=== PATIENT | male | born 1935 | race Caucasian/White ===

== ENCOUNTER 2016-12-09 14:13 | Inpatient (IN) | payer OTHER ==
[~2016-12-09] VITALS: Ht 167.6 cm; Wt 85.0 kg
[2016-12-09] MEDS ORDERED: SODIUM CHLORIDE 0.9% 1000ML 1,000 ML IV SCH ×2 (14:43→16:13)
--- NOTE | 2016-12-09 14:57 | EMERGENCY ROOM VISIT NOTE ---
History Report prepared by Aldo: Kylie Echols Under the Supervision of: Dr. Rasheed Fernandez M.D. First contact with patient: 14:33 Chief Complaint: NEURO SYMPTOMS Stated Complaint: ARM/LEG RT SIDE NUMBNESS History of Present Illness The patient is a 81 year old male who presents to the Emergency Room with complaints of improved right sided numbness and weakness starting about 7-8 hours ago. He was having breakfast when he had an onset of his symptoms. The patient states that he had some difficulty with his speech at the time which has now resolved. He currently denies any pain. He was referred to the Emergency Room by his PCP. He denies headache, chest pain, shortness of breath, or any other complaints. He has an increased urinary output which is being treated by his PCP. He denies any history of stroke. He does not take any blood thinners. He has not received a blood transfusion in the past few months. Source of History: patient Onset: about 7 hours ago Position: other (right sided) Symptom Intensity: No pain Quality: numbness, other (weakness) Timing: other (improved) Associated Symptoms: No SOB, No chest pain, No headache Review of Systems See HPI for pertinent positives & negatives. A total of 10 systems reviewed and were otherwise negative. Past Medical & Surgical Medical Problems: (1) TIA (transient ischemic attack) Surgical Problems: (1) History of cardiac cath Family History Patient reports no known family medical history. Social History Marital Status: Occupation Status: retired Current/Historical Medications Scheduled Amlodipine Besylate (Norvasc), 5 MG PO DAILY Sennosides-Docusate Sodium (Stool Softener), 1 TAB PO PRN Miscellaneous Medications Diclofenac Sodium (Topical) (Voltaren 1% Top Gel), 1 APPLN TOP Tamsulosin Hcl (Flomax), 0.4 MG PO Allergies Coded Allergies: Sulfa Antibiotics (Verified Allergy, Severe, EDEMA, 12/09/16) Physical Exam Vital Signs Date Time Temp Pulse Resp B/P Pulse Ox O2 Delivery O2 Flow Rate FiO2 12/09/16 16:27 78 20 185/102 94 Room Air 12/09/16 14:59 75 12/09/16 14:59 95 Room Air 12/09/16 14:17 36.7 86 20 184/88 96 Room Air Physical Exam GENERAL: Patient is in no acute distress. HEENT: No acute trauma, normocephalic atraumatic, mucous membranes moist, no nasal congestion, no scleral icterus. NECK: No stridor, no adenopathy, no meningismus, trachea is midline. LUNGS: Clear to auscultation bilaterally, no wheeze, no rhonchi, breath sounds equal. HEART: 3/6 systolic murmur with a regular rate and rhythm. ABDOMEN: Soft, nontender, bowel sounds positive, no hernias, no peritonitis. EXTREMITIES: No cyanosis or edema, full range of motion of all the joints without pain or difficulty, no signs for acute trauma. NEUROLOGIC: Slight right facial droop with speaking but not with actual testing , There may be a slight speech slur noted. There is drift to the right arm and right leg. No cerebellar dysfunction. SKIN: No rash, no jaundice, no diaphoresis. Medical Decision & Procedures ER Provider Diagnostic Interpretation: CT results as stated below per my review and radiologist interpretation: HEAD CT NONCONTRAST CT DOSE: 720.95 mGycm HISTORY: Mental status change Stroke TECHNIQUE: Multiaxial CT images of the head were performed without the use of intravenous contrast. Comparison: None. Findings: The paranasal sinuses and mastoid air cells are clear. The calvarium and skull base are intact. The ventricles and sulci are within normal limits. There is no mass, hematoma, midline shift, or acute infarct. Impression: No acute intracranial abnormality. Electronically signed by: Pravin Buck M.D. 12/09/2016 3:26 PM Dictated Date/Time: 12/09/2016 3:25 PM Laboratory Results 12/09/16 15:05 Red Blood Count 4.78, Mean Corpuscular Volume 88.5, Mean Corpuscular Hemoglobin 31.2, Mean Corpuscular Hemoglobin Concent 35.2, Mean Platelet Volume 10.0, Neutrophils (%) (Auto) 69.0, Lymphocytes (%) (Auto) 18.9, Monocytes (%) (Auto) 7.8, Eosinophils (%) (Auto) 3.8, Basophils (%) (Auto) 0.3, Neutrophils # (Auto) 6.63, Lymphocytes # (Auto) 1.81, Monocytes # (Auto) 0.75, Eosinophils # (Auto) 0.36, Basophils # (Auto) 0.03 12/09/16 15:05 Test 12/09/16 15:01 12/09/16 15:02 12/09/16 15:05 12/09/16 16:00 Bedside Prothrombin Time INR 0.9 (0.9-1.1) Bedside Glucose 122 mg/dl (70-99) White Blood Count 9.60 K/uL (4.8-10.8) Red Blood Count 4.78 M/uL (4.7-6.1) Hemoglobin 14.9 g/dL (14.0-18.0) Hematocrit 42.3 % (42-52) Mean Corpuscular Volume 88.5 fL (80-100) Mean Corpuscular Hemoglobin 31.2 pg (25-34) Mean Corpuscular Hemoglobin Concent 35.2 g/dl (32-36) Platelet Count 195 K/uL (130-400) Mean Platelet Volume 10.0 fL (7.4-10.4) Neutrophils (%) (Auto) 69.0 % Lymphocytes (%) (Auto) 18.9 % Monocytes (%) (Auto) 7.8 % Eosinophils (%) (Auto) 3.8 % Basophils (%) (Auto) 0.3 % Neutrophils # (Auto) 6.63 K/uL (1.4-6.5) Lymphocytes # (Auto) 1.81 K/uL (1.2-3.4) Monocytes # (Auto) 0.75 K/uL (0.11-0.59) Eosinophils # (Auto) 0.36 K/uL (0-0.5) Basophils # (Auto) 0.03 K/uL (0-0.2) RDW Standard Deviation 45.6 fL (36.4-46.3) RDW Coefficient of Variation 14.0 % (11.5-14.5) Immature Granulocyte % (Auto) 0.2 % Immature Granulocyte # (Auto) 0.02 K/uL (0.00-0.02) Prothrombin Time 10.4 SECONDS (9.0-12.0) Prothromb Time International Ratio 1.0 (0.9-1.1) Activated Partial Thromboplast Time 30.2 SECONDS (21.0-31.0) Partial Thromboplastin Ratio 1.2 Anion Gap 10.0 mmol/L (3-11) Est Creatinine Clear Calc Drug Dose 46.0 ml/min Estimated GFR () 58.9 Estimated GFR (Non- 50.8 BUN/Creatinine Ratio 12.5 (10-20) Calcium Level 8.8 mg/dl (8.5-10.1) Magnesium Level 2.2 mg/dl (1.8-2.4) Total Bilirubin 0.6 mg/dl (0.2-1) Direct Bilirubin 0.1 mg/dl (0-0.2) Aspartate Amino Transf (AST/SGOT) 19 U/L (15-37) Alanine Aminotransferase (ALT/SGPT) 33 U/L (12-78) Alkaline Phosphatase 88 U/L (45-117) Total Creatine Kinase 139 U/L (39-308) Creatine Kinase MB 2.2 ng/ml (0.5-3.6) Creatine Kinase MB Ratio 1.6 (0-3.0) Troponin I < 0.015 ng/ml (0-0.045) Total Protein 6.6 gm/dl (6.4-8.2) Albumin 3.3 gm/dl (3.4-5.0) Thyroid Stimulating Hormone (TSH) 1.050 uIu/ml (0.300-4.500) Urine Opiates Screen NEG (NEG) Urine Methadone, Qualitative NEG (NEG) Urine Barbiturates NEG (NEG) Urine Phencyclidine (PCP) Level NEG (NEG) Ur Amphetamine/Methamphetamine NEG (NEG) MDMA (Ecstasy) Screen NEG (NEG) Urine Benzodiazepines Screen NEG (NEG) Urine Cocaine Metabolite NEG (NEG) Urine Marijuana (THC) NEG (NEG) Laboratory results reviewed by me. Medications Administered Medications (Trade) Dose Ordered Sig/Georgina Route Start Time Stop Time Status Last Admin Dose Admin Sodium Chloride (Nss 1000ml) 1,000 ml @ 50 mls/hr Q20H IV 12/09/16 14:43 12/09/16 17:04 DC 12/09/16 15:12 50 MLS/HR Acetaminophen (Tylenol Tab) 650 mg Q4H PRN PO 12/09/16 16:15 01/08/17 16:14 12/09/16 17:15 650 MG Hydralazine HCl (HydrALAZINE INJ) 10 mg Q6H PRN IV. 12/09/16 16:15 01/08/17 16:14 12/09/16 17:14 10 MG ECG Indication: weakness, other (numbness) Rate (beats per minute): 73 Rhythm: sinus rhythm Findings: PAC, no acute ischemic change, other (LVH is present) ED Course 1433: The patient was evaluated in room C12B. A complete history and physical exam was performed. 1443: Sodium Chloride 1000 ml @ 50 mls/hr IV 1544: Upon reexamination the patient is resting comfortably. I discussed results and treatment plan with the patient. He verbalizes agreement and understanding. I discussed the patient's case with Dr. Mirza, from [facility]. The patient will be evaluated for further management. Medical Decision Differential diagnosis includes but is not limited to intracranial bleed, stroke , anemia, electrolyte imbalance, infection, dysrhythmia. There is no leukocytosis or concerning anemia. No significant electrolyte abnormality, kidney failure, hepatitis. The patient appears to be in a euthyroid state. There is no coagulopathy. EKG shows a sinus rhythm, no acute ischemia. Urine tox is negative. Brain CT shows no acute bleed or mass effect. On exam, the patient did have findings of stroke affecting his right side. The patient received IV saline, he is not a candidate for TPA as he has had symptoms now for over 7 hours. He is out of the window for TPA. I discussed this with him. The patient is aware that I feel he has had a stroke. Further testing and hospital care is required. I spoke to case management. The on-call hospitalist was consulted. Consults Time Called: 154 Consulting Physician: Dr. Mirza, from [facility] Returned Call: [phone] I discussed the patient's case with Dr. Mirza, from [facility]. Impression Primary Impression: Stroke Scribe Attestation The scribe's documentation has been prepared under my direction and personally reviewed by me in its entirety. I confirm that the note above accurately reflects all work, treatment, procedures, and medical decision making performed by me. Departure Information Dispostion Being Evaluated By Hospitalist Referrals Major Chen M.D. (PCP) Patient Instructions My [facility] Stroke History Time Last Known Well 7 am Stroke t-PA Criteria Reviewed Does NOT meet criteria for t-PA Reason t-PA Not Given Treatment not indicated
[2016-12-09 15:14] LABS: BASO % 0.3 %; BASO ABS # 0.03 K/uL (0-0.2); COMPLETE YES; EOS % 3.8 %; HEMATOCRIT 42.3 % (42-52); IG% 0.2 %; LYMPH % 18.9 %; LYMPH ABS # 1.81 K/uL (1.2-3.4); MEAN CELL VOLUME 88.5 fL (80-100); MEAN CORPUSCULAR HEMOGLOBIN 31.2 pg (25-34); MEAN CORPUSCULAR HGB CONC 35.2 g/dl (32-36); MONO % 7.8 %; PLATELET COUNT 195 K/uL (130-400); RED BLOOD COUNT 4.78 M/uL (4.7-6.1)
[2016-12-09 15:23] LABS: PARTIAL THROMBOPLASTIN RATIO 1.2; PROTHROMBIN TIME (PATIENT) 10.4 SECONDS (9.0-12.0)
--- NOTE | 2016-12-09 15:27 | DIAGNOSTIC IMAGING REPORT ---
HEAD CT NONCONTRAST CT DOSE: 720.95 mGycm HISTORY: Mental status change Stroke TECHNIQUE: Multiaxial CT images of the head were performed without the use of intravenous contrast. Comparison: None. Findings: The paranasal sinuses and mastoid air cells are clear. The calvarium and skull base are intact. The ventricles and sulci are within normal limits. There is no mass, hematoma, midline shift, or acute infarct. Impression: No acute intracranial abnormality. Electronically signed by: Pravin Buck M.D. 12/09/2016 3:26 PM Dictated Date/Time: 12/09/2016 3:25 PM
[2016-12-09 15:36] LABS: ALT/SGPT 33 U/L (12-78); BLOOD UREA NITROGEN 16 mg/dl (7-18); BUN/CREATININE RATIO 12.5 (10-20); CALCIUM 8.8 mg/dl (8.5-10.1); CARBON DIOXIDE 25 mmol/L (21-32); CHLORIDE 103 mmol/L (98-107); GLUCOSE 134 mg/dl (70-99); MAGNESIUM 2.2 mg/dl (1.8-2.4); SODIUM 138 mmol/L (136-145)
[2016-12-09] MEDS ORDERED: AMLO5TAB2 PO (15:43)
[2016-12-09] MEDS ORDERED: TAMS0.4C38 PO (15:43)
[2016-12-09] MEDS ORDERED: DICL1GEL12 TOP (15:43)
[2016-12-09] MEDS ORDERED: SENNTAB23 PO (15:43)
[2016-12-09 15:47] LABS: ALKALINE PHOSPHATASE 88 U/L (45-117); AST/SGOT 19 U/L (15-37); CKMB/CK RATIO 1.6 (0-3.0)
[2016-12-09] MEDS ORDERED: HydrALAZINE HCL 20 MG/ML VIAL IV. PRN (16:15)
[2016-12-09] MEDS ORDERED: POLYETHYLENE (MIRALAX) 17 GM PACK PO PRN (16:15)
[2016-12-09] MEDS ORDERED: NITROGLYCERIN 0.4 MG SL PER TAB CHARGE SL PRN (16:15)
[2016-12-09] MEDS ORDERED: ACETAMINOPHEN 325 MG TAB PO PRN (16:15)
[2016-12-09] MEDS ORDERED: PHARMACIST DISCHARGE MED REC CONSULT PRN (16:15)
[2016-12-09] MEDS ORDERED: MAGNESIUM HYDROXIDE SUSP 30 ML UDC PO PRN (16:15)
[2016-12-09] MEDS ORDERED: ALUMINUM/MAGNESIUM/SIMETH (MAALOX MAX) 30 ML UDC PO PRN (16:15)
[2016-12-09] MEDS ORDERED: ONDANSETRON INJ 2 MG/ML 2 ML VIAL IV PRN (16:15)
[2016-12-09] MEDS ORDERED: DICLOFENAC SOD 1% GEL 100 GM TUBE EXT PRN (16:15)
[2016-12-09 16:32] LABS: BENZODIAZEPINE, URINE NEG (NEG); COCAINE,URINE NEG (NEG); PHENCYCLIDINE, URINE NEG (NEG)
--- NOTE | 2016-12-09 16:52 | History and Physical ---
History & Physical Date & Time of Service: Dec 09, 2016 at 16:29 Chief Complaint: Arm/Leg Rt Side Numbness Primary Care Physician: aMjor Chen M.D. History of Present Illness Source: patient, family, clinic records, hospital records Patient is a pleasant 81 y/o male, with PMHx of CAD s/p heart cath in 2002, HTN , BPH, and h/o peptic ulcer disease, who presented to the ED because of right- sided stoke-like symptoms. According to the patient, when he woke up this AM, he noticed right arm/leg were numb and weakness. He admits to difficulty w/ speech. Daughter present states the patient called her this AM when symptoms occurred. She could not tell if patient was slurring speech or if it was because he was very upset/tearful. When she picked him up, she noticed that he was no himself. He had to physically lift his right leg to put his shoe on. Patient states symptoms have mostly resolved at this time. Per daughter, patient has been dealing w/ right hand 1st and 2nd digit numbness/tingling for sometime. He has been following w/ the chiropractor and it is felt he has a pinched nerve. Additionally, patient is following with [facility] because of his bilateral knee pain. The left knee needs replaced, but the right knee is suspected to have a meniscal tear. Patient was scheduled to have an MRI of the right knee on 12/10. Patient admits to increased right calf discomfort over the last 1 week. He denies any lower extremity edema or discoloration. He denies history of TIA/CVA, DVT/PE. Additionally, patient admits to worsening SOB. Per daughter, patient has been SOB since pulmonary infection in August. Patient/daughter admit to heart cath in 2002 but does not know why it was completed. Patient denies any arrhythmia, but daughter states she believes he was told in the past he had an arrhythmia. Patient's recently passed in September due to the results of a stoke 11 years ago. 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 He is very anxious/upset with current situation due to 's history. Patient denies any fever, chills, sweats, lightheadedness, dizziness, vision changes, CP, palpitations, edema, wheezing, cough, abdominal pain, nausea , vomiting, diarrhea, urinary symptoms, melena, muscle/joint pain, depression, active bleeding, or new skin discoloration/changes. Past Medical/Surgical History Medical hx: CAD HTN BPH h/o peptic ulcer disease Surgical Problems: Heart cath in 2002 Cataract surgery Family History Mother- DM Brother- heart disease Social History Smoking Status: Former Smoker Marital Status: Occupational Status: retired Multi-Drug Resistant Organisms History of MDRO: No Allergies Coded Allergies: Sulfa Antibiotics (Verified Allergy, Severe, EDEMA, 12/09/16) Home Medications Scheduled Amlodipine Besylate (Norvasc), 5 MG PO DAILY Sennosides-Docusate Sodium (Stool Softener), 1 TAB PO PRN Miscellaneous Medications Diclofenac Sodium (Topical) (Voltaren 1% Top Gel), 1 APPLN TOP Tamsulosin Hcl (Flomax), 0.4 MG PO Physical Exam Vital Signs Date Time Temp Pulse Resp B/P Pulse Ox O2 Delivery O2 Flow Rate FiO2 12/09/16 16:27 78 20 185/102 94 Room Air 12/09/16 14:59 75 12/09/16 14:59 95 Room Air 12/09/16 14:17 36.7 86 20 184/88 96 Room Air General Appearance: no apparent distress Head: normocephalic, atraumatic Eyes: normal inspection, PERRL ENT: hearing grossly normal Neck: supple Respiratory/Chest: lungs clear, no respiratory distress, no accessory muscle use Cardiovascular: regular rate, rhythm, normal peripheral pulses, + systolic murmur Abdomen/GI: normal bowel sounds, soft, + distended Back: normal inspection Extremities/Musculoskelatal: no pedal edema, + pertinent finding (decreased naprapath strength of right hand ) Neurologic/Psych: alert, oriented x 3, + pertinent finding (tearful/anxious) Skin: normal color, warm/dry, no rash Diagnostics Laboratory Results Results Past 24 Hours Test 12/09/16 15:01 12/09/16 15:05 12/09/16 16:00 Range/Units Bedside Prothrombin Time INR 0.9 0.9-1.1 White Blood Count 9.60 4.8-10.8 K/uL Red Blood Count 4.78 4.7-6.1 M/uL Hemoglobin 14.9 14.0-18.0 g/dL Hematocrit 42.3 42-52 % Mean Corpuscular Volume 88.5 80-100 fL Mean Corpuscular Hemoglobin 31.2 25-34 pg Mean Corpuscular Hemoglobin Concent 35.2 32-36 g/dl Platelet Count 195 130-400 K/uL Mean Platelet Volume 10.0 7.4-10.4 fL Neutrophils (%) (Auto) 69.0 % Lymphocytes (%) (Auto) 18.9 % Monocytes (%) (Auto) 7.8 % Eosinophils (%) (Auto) 3.8 % Basophils (%) (Auto) 0.3 % Neutrophils # (Auto) 6.63 1.4-6.5 K/uL Lymphocytes # (Auto) 1.81 1.2-3.4 K/uL Monocytes # (Auto) 0.75 0.11-0.59 K/uL Eosinophils # (Auto) 0.36 0-0.5 K/uL Basophils # (Auto) 0.03 0-0.2 K/uL RDW Standard Deviation 45.6 36.4-46.3 fL RDW Coefficient of Variation 14.0 11.5-14.5 % Immature Granulocyte % (Auto) 0.2 % Immature Granulocyte # (Auto) 0.02 0.00-0.02 K/uL Prothrombin Time 10.4 9.0-12.0 SECONDS Prothromb Time International Ratio 1.0 0.9-1.1 Activated Partial Thromboplast Time 30.2 21.0-31.0 SECONDS Partial Thromboplastin Ratio 1.2 Sodium Level 138 136-145 mmol/L Potassium Level 4.0 3.5-5.1 mmol/L Chloride Level 103 98-107 mmol/L Carbon Dioxide Level 25 21-32 mmol/L Anion Gap 10.0 3-11 mmol/L Blood Urea Nitrogen 16 7-18 mg/dl Creatinine 1.30 0.60-1.40 mg/dl Est Creatinine Clear Calc Drug Dose 46.0 ml/min Estimated GFR () 58.9 Estimated GFR (Non- 50.8 BUN/Creatinine Ratio 12.5 10-20 Random Glucose 134 70-99 mg/dl Calcium Level 8.8 8.5-10.1 mg/dl Magnesium Level 2.2 1.8-2.4 mg/dl Total Bilirubin 0.6 0.2-1 mg/dl Direct Bilirubin 0.1 0-0.2 mg/dl Aspartate Amino Transf (AST/SGOT) 19 15-37 U/L Alanine Aminotransferase (ALT/SGPT) 33 12-78 U/L Alkaline Phosphatase 88 45-117 U/L Total Creatine Kinase 139 39-308 U/L Creatine Kinase MB 2.2 0.5-3.6 ng/ml Creatine Kinase MB Ratio 1.6 0-3.0 Troponin I < 0.015 0-0.045 ng/ml Total Protein 6.6 6.4-8.2 gm/dl Albumin 3.3 3.4-5.0 gm/dl Thyroid Stimulating Hormone (TSH) 1.050 0.300-4.500 uIu/ml Diagnostic Radiology HEAD CT NONCONTRAST CT DOSE: 720.95 mGycm HISTORY: Mental status change Stroke TECHNIQUE: Multiaxial CT images of the head were performed without the use of intravenous contrast. Comparison: None. Findings: The paranasal sinuses and mastoid air cells are clear. The calvarium and skull base are intact. The ventricles and sulci are within normal limits. There is no mass, hematoma, midline shift, or acute infarct. Impression: No acute intracranial abnormality. Electronically signed by: Pravin Buck M.D. 12/09/2016 3:26 PM Dictated Date/Time: 12/09/2016 3:25 PM The status of this report is Signed. Draft = Not yet reviewed or approved by Radiologist. Signed = Reviewed and approved by Radiologist. EKG JOHN SHAHLA ID:[id number] 09-DEC-2016 14:54:53 [facility] Sinus rhythm with Premature supraventricular complexes Left axis deviation Minimal voltage criteria for LVH, may be normal variant Abnormal ECG No previous ECGs available Confirmed by CRYSTAL GAN ([id number]) on 12/09/2016 4:41:10 PM 25mm/s 10mm/mV 150Hz 8.0 SP2 12SL 241 HD ODALIS: 12 Referred by: ED Confirmed By: CRYSTAL Jerez. rate 73 BPM WY interval 168 ms QRS duration 100 ms QT/QTc 392/431 ms P-R-T axes 38 -30 8 1935 (81 yr) Male Room: Loc:15 Assistant Chief Engineer:GERARD Hu ind: Impression Assessment and Plan 81 y/o male, with PMHx of CAD s/p heart cath in 2002, HTN, BPH, and h/o peptic ulcer disease, who presented to the ED because of right-sided stoke-like symptoms: Right-sided stroke-like symptoms, TIA vs CVA: - Admit to tele observation for cardiac monitoring - Trend cardiac enzymes- initial trop negative - IV NSS @ 75 ml/hr x1 bag - Head CT- unremarkable - MRI of brain, carotid US, ECHO - Check left lower extremity Doppler- complaining of calf pain and SOB - -Stroke protocol: --PT/OT and speech evaluation --Aspiration/fall precautions --Dysphagia screen, advance diet as tolerated --Routine neuro checks --Elevate HOB - Start Plavix 75 mg daily and Atorvastatin 40 daily -- According to patient, cannot take ASA due to PUD and eye reaction (sees lights) - Check lipid panel and ha1c - Urine drug screen ordered in ED- pending - Consult neurology, appreciate recommendations CAD s/p heart cath in 2002: - Pt is poor historian on cardiac history- followed w/ Dr. Ross - Denies any medications HTN: - Continue Norvasc 5 mg daily - Hydralazine PRN BPH: Continue Tamsulosin 0.4 mg daily GI Prophylaxis: Maalox PRN, IV Zofran PRN, Colace and/or Milk of Mag PRN DVT prophylaxis: Heparin 5000 units SQ q12 hrs, HORACE and SCDs Code Status: LEVEL V, DNR Dispo: From home, lives alone PA Physician Supervision Note: I interviewed and examined the patient. Discussed with Daija Sanon PAC and agree with findings and plan as documented in the note. Any exceptions or clarifications are listed here: None Pt presents outside of time window for tPa for stroke like symptoms of right arm and leg weakness, speech changes and mild facial droop. recently from complications of a stroke 11 years ago. Pt is obviously shaken and tearful in the ER vitals show hypertension car is regular lungs are clear minor but reproducable naprapath weakness CT head is negative Admit for stroke, MRI, plavix as aspirin intolerance, statin, permissive htn, PT /OT, DVT prevention Documented By: Saúl Mirza Level of Care Telemetry Resuscitation Status DO NOT RESUSCITATE VTE Prophylaxis VTE Risk Assessment Done? Y/N: Yes Risk Level: Moderate Given or contraindicated: Unfractionated heparin SQ, T.E.D. Stockings, SCD's
--- NOTE | 2016-12-09 18:02 | DIAGNOSTIC IMAGING REPORT ---
RIGHT LOWER EXTREMITY VENOUS DOPPLER CLINICAL HISTORY: Right calf pain. COMPARISON STUDY: No previous studies for comparison. TECHNIQUE: Sonography of the deep venous system of the right lower extremity was performed. Compression and augmentation were evaluated. FINDINGS: The right common femoral, superficial femoral and popliteal veins were compressible. Augmentation was normal. Flow was shown within the deep calf vessels. IMPRESSION: No evidence of deep venous thrombus within the right lower extremity. Electronically signed by: Gustavo Amaya M.D. 12/09/2016 6:01 PM Dictated Date/Time: 12/09/2016 6:01 PM
--- NOTE | 2016-12-09 18:19 | DIAGNOSTIC IMAGING REPORT ---
CAROTID ARTERY ULTRASOUND CLINICAL HISTORY: Stroke COMPARISON STUDY: None. TECHNIQUE: Real-time, grayscale, and color Doppler sonography of the carotid and vertebral arteries was performed. Images were viewed in the transverse and longitudinal planes. FINDINGS: There is mild atherosclerotic plaque. Velocity measurements are listed below. COMMON CAROTID PEAK SYSTOLIC VELOCITY (CM/S): RIGHT 113 LEFT 123 ICA PEAK SYSTOLIC VELOCITY (CM/S): RIGHT 85 LEFT 71 The systolic ratios between the internal to common carotid arteries were normal. Antegrade flow is seen in the vertebral arteries. The external carotid arteries are patent. Blood pressure in the right arm measured 136/70. Blood pressure in the left arm measured 141/68. IMPRESSION: No evidence of a hemodynamically significant stenosis. Electronically signed by: Gustavo Amaya M.D. 12/09/2016 6:18 PM Dictated Date/Time: 12/09/2016 6:17 PM
[2016-12-09 18:20] VITALS: BP 175/92; PULSE 80; TEMP 36.6; O2SAT 96; BMI 30.4
[2016-12-09] MEDS ORDERED: IV FLUIDS COMPLETED PRN (18:30)
[2016-12-09 19:34] VITALS: BP 165/83; PULSE 92; TEMP 36.6; O2SAT 95
[2016-12-09] MEDS: HEPARIN SOD 5000 UNIT/0.5 ML CARP SQ SCH (19:48)
[2016-12-09] MEDS ORDERED: LORAZEPAM 0.5 MG TAB PO STA (20:25)
[2016-12-09] MEDS ORDERED: NURSING VERBAL MED ORDER ONE (20:30)
[2016-12-09] MEDS ORDERED: LORAZEPAM 2 MG/ML 1 ML VIAL ONE (20:38)
[2016-12-09] MEDS ORDERED: LORAZEPAM 2 MG/ML 1 ML VIAL IV ONE (20:45)
[2016-12-09] MEDS ORDERED: LORAZEPAM INJ 0.5 MG in SYRINGE 0.75 ML IV ONE (20:45)
[2016-12-09] MEDS ORDERED: GADAVIST IV PRN (22:00)
--- NOTE | 2016-12-09 22:09 | DIAGNOSTIC IMAGING REPORT ---
MRI OF THE BRAIN WITHOUT AND WITH IV CONTRAST CLINICAL HISTORY: Right sided numbness. Stroke. COMPARISON STUDY: Head CT performed earlier today. TECHNIQUE: Utilizing a 1.5 Tisha magnet and dedicated coil, multiplanar, multiecho imaging of the brain was performed pre and postcontrast administration. IV administration of 9 mL of Gadavist contrast was uneventful. FINDINGS: This exam is mildly compromised by motion artifact. There are no areas of restricted diffusion. No acute intracranial hemorrhage, midline shift or mass effect is present. Moderate atrophy is noted. Mild white matter T2 hyperintensity suggest small vessel disease. No intracranial mass or pathologic enhancement is present. Ventricular system is unremarkable for age. Calvarial signal is maintained. IMPRESSION: 1. No acute intracranial findings. 2. No intracranial mass or pathologic enhancement. 3. Moderate atrophy and mild small vessel disease. Electronically signed by: Gustavo Amaya M.D. 12/09/2016 10:08 PM Dictated Date/Time: 12/09/2016 10:03 PM
[2016-12-09 23:34] VITALS: BP 144/78; PULSE 81; TEMP 36.7; O2SAT 94
[2016-12-10] VITALS (8 sets, daily range): BP systolic 122–153; BP diastolic 69–90; PULSE 77–86; TEMP 36.5–36.9; O2SAT 93–98; Ht 167.6 cm; Wt 85.0 kg
[2016-12-10 07:06] LABS: BASO % 0.4 %; BASO ABS # 0.04 K/uL (0-0.2); COMPLETE YES; EOS % 4.8 %; HEMATOCRIT 43.1 % (42-52); IG% 0.2 %; LYMPH % 14.7 %; LYMPH ABS # 1.32 K/uL (1.2-3.4); MEAN CELL VOLUME 88.1 fL (80-100); MEAN CORPUSCULAR HEMOGLOBIN 31.3 pg (25-34); MEAN CORPUSCULAR HGB CONC 35.5 g/dl (32-36); MEAN PLATELET VOLUME 9.8 fL (7.4-10.4); MONO % 9.6 %; NEUT % 70.3 %; PLATELET COUNT 200 K/uL (130-400); RED BLOOD COUNT 4.89 M/uL (4.7-6.1)
[2016-12-10] MEDS: CLOPIDOGREL BISULFATE 75 MG TAB PO SCH (07:37)
[2016-12-10] MEDS: ATORVASTATIN 40 MG TAB PO SCH (07:37)
[2016-12-10] MEDS: AMLODIPINE BESYLATE 5 MG TAB PO SCH (07:37)
[2016-12-10] MEDS: DOCUSATE SODIUM/SENNA 50/8.6MG TAB PO SCH (07:38)
[2016-12-10] MEDS: TAMSULOSIN HCL 0.4 MG CAP PO SCH (07:38)
[2016-12-10] MEDS: HEPARIN SOD 5000 UNIT/0.5 ML CARP SQ SCH ×2 (07:39→20:15)
[2016-12-10 07:40] LABS: BLOOD UREA NITROGEN 13 mg/dl (7-18); BUN/CREATININE RATIO 10.7 (10-20); CALCIUM 8.8 mg/dl (8.5-10.1); CARBON DIOXIDE 25 mmol/L (21-32); CHLORIDE 106 mmol/L (98-107); GLUCOSE 142 mg/dl (70-99); POTASSIUM 3.9 mmol/L (3.5-5.1); SODIUM 139 mmol/L (136-145)
[2016-12-10 07:45] LABS: CHOLESTEROL 157 mg/dl (0-200); CHOLESTEROL/HDL RATIO 3.7; HDL CHOLESTEROL 42 mg/dl; LDL CHOLESTEROL CALCULATED 90 mg/dl; TRIGLYCERIDES 124 mg/dl (0-150); VERY LOW DENSITY LIPOPROT CALC 25 mg/dl
[2016-12-10 08:52] LABS: ESTIMATED AVERAGE GLUCOSE 154 mg/dl; HA1C FLAG Normal (Normal)
--- NOTE | 2016-12-10 08:58 | Neurology Consultation ---
Neurology Consultation Date of Consultation: Dec 10, 2016. Attending Physician: Cayden Ruffin D.O. Primary Care Physician: Major Chen M.D. Reason for Consultation: Stroke like symptoms History of Present Illness Source: patient, family, hospital records This is an 81-year-old male who presents for acute onset right-sided weakness. He reports that it started acutely while eating breakfast yesterday morning. Mostly involved his right upper extremity. He reports that he had whole hard time holding onto his spoon. Also had numbness but in part of the hand but he is not sure that it was the entire arm. He reports occasionally getting pain down his right lateral proximal arm in the deltoid area. He denies any significant neck pain. He reports that he has had numbness in the right hand previously. He denies any wrist or elbow pain. He reports that the acute weakness seems to be resolved this morning. In addition he had has chronic right lower extremity pain and weakness area daughter reports that this is been getting worse over the last week. She reports that he has been evaluated by orthopedics and they're suspicious for possibly a meniscal tear in the right knee and were planning for an MRI of the knee today. 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 Again this been going on for several weeks to months. He does report occasional shooting pain down the right leg. When he had his acutely worsening arm weakness yesterday morning , he also reported some blurry vision with flickering lights in it. He denies any headaches at the time. He was anxious about possibly having a stroke because his who recently tried in September, she had a stroke with right hemiplegia, was wheelchair bound, and he had to care for her for a decade. Patient denies any significant headaches or history of migraine headaches. Daughter patient to report that he's had some on and off finger numbness on the right hand in the second and third finger. When this event happened yesterday the patient also thought that his speech was a little bit slurred or is getting mixed up over his words. There was no clear aphasia. While the ER thought that maybe had a little bit of a right facial droop, the daughter did not notice any facial droop. There was no loss of vision. MRI of the brain done at around 8 PM last night report and images were reviewed by myself. MRI of the brain appears normal for age. There is no signs of acute or chronic strokes. Ultrasound of the carotids was also unremarkable Because of right lower extremity pain the patient also received an ultrasound of the lower extremity and there was no DVT Labs: Creatinine end to be 1.2 Total cholesterol 157, LDL 90, HDL 42, triglycerides 124 Hemoglobin A1c is pending Echocardiogram is pending On review of systems the daughter also reports he's been short of breath and frequent coughing ever since he was treated for bronchitis in August. Past Medical/Surgical History Medical Problems: (1) Stroke Status: Acute CAD status post cardiac cath, hypertension, BPH, peptic ulcer disease Cataract surgery, surgery for peptic ulcer Family History Diabetes, CAD, cancer Social History Patient is recently ( in September) He is independent in his activities of daily living Remote tobacco use. No alcohol or illegal drug use Marital Status: Occupation Status: retired Allergies Coded Allergies: Sulfa Antibiotics (Verified Allergy, Severe, EDEMA, 12/09/16) Current Inpatient Medications Current Inpatient Medications Medications (Trade) Dose Ordered Sig/Georgina Route Start Time Stop Time Status Last Admin Dose Admin Heparin Sodium (Porcine) (Heparin Sq 5000 Unit/0.5ml) 5,000 unit Q12 SQ 12/09/16 21:00 01/08/17 20:59 12/10/16 07:39 5,000 UNIT Acetaminophen (Tylenol Tab) 650 mg Q4H PRN PO 12/09/16 16:15 01/08/17 16:14 12/09/16 17:15 650 MG Al Hydrox/Mg Hydrox/Simethicone (Maalox Max Susp) 15 ml Q4H PRN PO 12/09/16 16:15 01/08/17 16:14 Magnesium Hydroxide (Milk Of Magnesia Susp) 30 ml Q12H PRN PO 12/09/16 16:15 01/08/17 16:14 Ondansetron HCl (Zofran Inj) 4 mg Q6H PRN IV 12/09/16 16:15 01/08/17 16:14 Nitroglycerin (Nitrostat Tab) 0.4 mg UD PRN SL 12/09/16 16:15 01/08/17 16:14 Polyethylene (Miralax Powder Packet) 17 gm DAILY PRN PO 12/09/16 16:15 01/08/17 16:14 Atorvastatin Calcium (Lipitor Tab) 40 mg QAM PO 12/10/16 09:00 01/09/17 08:59 12/10/16 07:37 40 MG Clopidogrel Bisulfate (plAVix TAB) 75 mg QAM PO 12/10/16 09:00 01/09/17 08:59 12/10/16 07:37 75 MG Miscellaneous Information (Pharmacist Discharge Med Rec Consult) 1 ea UD PRN N/A 12/09/16 16:15 01/08/17 16:14 Hydralazine HCl (HydrALAZINE INJ) 10 mg Q6H PRN IV. 12/09/16 16:15 01/08/17 16:14 12/09/16 17:14 10 MG Amlodipine Besylate (Norvasc Tab) 5 mg DAILY PO 12/10/16 09:00 01/09/17 08:59 12/10/16 07:37 5 MG Diclofenac Sodium (Voltaren 1% Top Gel) 1 appln QID PRN EXT 12/09/16 16:15 01/08/17 16:14 Senna/Docusate Sodium (Senokot S Tab) 1 tab DAILY PO 12/10/16 09:00 01/09/17 08:59 12/10/16 07:38 1 TAB Tamsulosin HCl (Flomax Cap) 0.4 mg DAILY PO 12/10/16 09:00 01/09/17 08:59 12/10/16 07:38 0.4 MG Miscellaneous (Iv Fluids Completed) 1 ea PRN PRN N/A 12/09/16 18:30 12/09/17 18:29 Gadobutrol (Gadavist) 9 mmol UD PRN IV 12/09/16 22:00 12/13/16 21:59 Review of Systems Complete review of systems otherwise negative except for the above noted in history of present illness Allergic / Immunologic: + environmental allergies Physical Exam Vital Signs (Past 24 Hrs): Date Time Temp Pulse Resp B/P Pulse Ox O2 Delivery O2 Flow Rate FiO2 12/10/16 08:00 95 Room Air 12/10/16 07:52 36.6 77 18 147/81 95 Room Air 12/10/16 04:41 36.7 79 18 122/69 98 Room Air 12/10/16 04:00 Room Air 12/09/16 23:59 Room Air 12/09/16 23:34 36.7 81 18 144/78 94 Room Air 12/09/16 20:00 Room Air 12/09/16 19:34 36.6 92 20 165/83 95 Room Air 12/09/16 18:20 36.6 80 16 175/92 96 Room Air 12/09/16 17:19 76 20 143/95 95 Room Air 12/09/16 16:27 78 20 185/102 94 Room Air 12/09/16 14:59 75 12/09/16 14:59 95 Room Air 12/09/16 14:17 36.7 86 20 184/88 96 Room Air Gen.: Patient is alert and oriented in no acute distress, sitting in chair Heart: Regular rate and rhythm, + systolic murmur Extremities: No gross deformities or rashes noted Neurological examination: Mental status: Patient is alert and oriented to person place and time. Able to give his own history. Attention concentration normal for the situation. Speech is fluent without any dysarthria or aphasia noted Cranial nerves: Funduscopic examination was difficult to visualize. Visual guerra intact to counting. Pupils equally round and reactive to light. Extraocular muscles intact without nystagmus. No facial asymmetry noted. Facial sensation intact. Tongue midline. Good palatal elevation. Good shoulder shrug bilaterally. Hearing grossly intact voice (hearing aids in place). Strength: 5/5 both proximal and distal in left upper and lower extremity. Patient had give way weakness secondary to shoulder pain with proximal right upper extremity testing. In addition the patient had right shoulder pain to passive movement of the shoulder. Right bicep was 5/5. Finger extension 5/5. Right hand leadite worker 4/5. Right hip flexion 2/5, right knee extension 2/5, foot dorsiflexion 4/5, and right foot plantar flexion 5/5. Sensation: Grossly intact to light touch in all extremities with the exception of decreased sensation in the right anterior thigh and right median distribution of the palm. Deep tendon reflexes: +1 in bilateral, biceps and patellar with the exception of +2 in the right patellar. Toes are downgoing to plantar stimulation bilaterally Coordination: Patient has good finger to nose without dysmetria Station within the chair is normal. Laboratory Results Past 24 Hours: 12/10/16 06:50 Red Blood Count 4.89, Mean Corpuscular Volume 88.1, Mean Corpuscular Hemoglobin 31.3, Mean Corpuscular Hemoglobin Concent 35.5, Mean Platelet Volume 9.8, Neutrophils (%) (Auto) 70.3, Lymphocytes (%) (Auto) 14.7, Monocytes (%) (Auto) 9.6, Eosinophils (%) (Auto) 4.8, Basophils (%) (Auto) 0.4, Neutrophils # (Auto) 6.33, Lymphocytes # (Auto) 1.32, Monocytes # (Auto) 0.86, Eosinophils # (Auto) 0.43, Basophils # (Auto) 0.04 12/10/16 06:50 Test 12/09/16 15:01 12/09/16 15:02 12/09/16 15:05 12/09/16 16:00 Bedside Prothrombin Time INR 0.9 (0.9-1.1) Bedside Glucose 122 mg/dl (70-99) Prothrombin Time 10.4 SECONDS (9.0-12.0) Prothromb Time International Ratio 1.0 (0.9-1.1) Activated Partial Thromboplast Time 30.2 SECONDS (21.0-31.0) Partial Thromboplastin Ratio 1.2 Magnesium Level 2.2 mg/dl (1.8-2.4) Total Bilirubin 0.6 mg/dl (0.2-1) Direct Bilirubin 0.1 mg/dl (0-0.2) Aspartate Amino Transf (AST/SGOT) 19 U/L (15-37) Alanine Aminotransferase (ALT/SGPT) 33 U/L (12-78) Alkaline Phosphatase 88 U/L (45-117) Total Creatine Kinase 139 U/L (39-308) Total Protein 6.6 gm/dl (6.4-8.2) Albumin 3.3 gm/dl (3.4-5.0) Thyroid Stimulating Hormone (TSH) 1.050 uIu/ml (0.300-4.500) Urine Opiates Screen NEG (NEG) Urine Methadone, Qualitative NEG (NEG) Urine Barbiturates NEG (NEG) Urine Phencyclidine (PCP) Level NEG (NEG) Ur Amphetamine/Methamphetamine NEG (NEG) MDMA (Ecstasy) Screen NEG (NEG) Urine Benzodiazepines Screen NEG (NEG) Urine Cocaine Metabolite NEG (NEG) Urine Marijuana (THC) NEG (NEG) Test 12/10/16 06:50 White Blood Count 9.00 K/uL (4.8-10.8) Red Blood Count 4.89 M/uL (4.7-6.1) Hemoglobin 15.3 g/dL (14.0-18.0) Hematocrit 43.1 % (42-52) Mean Corpuscular Volume 88.1 fL (80-100) Mean Corpuscular Hemoglobin 31.3 pg (25-34) Mean Corpuscular Hemoglobin Concent 35.5 g/dl (32-36) Platelet Count 200 K/uL (130-400) Mean Platelet Volume 9.8 fL (7.4-10.4) Neutrophils (%) (Auto) 70.3 % Lymphocytes (%) (Auto) 14.7 % Monocytes (%) (Auto) 9.6 % Eosinophils (%) (Auto) 4.8 % Basophils (%) (Auto) 0.4 % Neutrophils # (Auto) 6.33 K/uL (1.4-6.5) Lymphocytes # (Auto) 1.32 K/uL (1.2-3.4) Monocytes # (Auto) 0.86 K/uL (0.11-0.59) Eosinophils # (Auto) 0.43 K/uL (0-0.5) Basophils # (Auto) 0.04 K/uL (0-0.2) RDW Standard Deviation 46.0 fL (36.4-46.3) RDW Coefficient of Variation 14.2 % (11.5-14.5) Immature Granulocyte % (Auto) 0.2 % Immature Granulocyte # (Auto) 0.02 K/uL (0.00-0.02) Anion Gap 8.0 mmol/L (3-11) Est Creatinine Clear Calc Drug Dose 48.6 ml/min Estimated GFR () 64.9 Estimated GFR (Non- 56.0 BUN/Creatinine Ratio 10.7 (10-20) Estimated Average Glucose 154 mg/dl Hemoglobin A1c 7.0 % (4.5-5.6) Calcium Level 8.8 mg/dl (8.5-10.1) Creatine Kinase MB 1.3 ng/ml (0.5-3.6) Creatine Kinase MB Ratio (0-3.0) Troponin I < 0.015 ng/ml (0-0.045) Triglycerides Level 124 mg/dl (0-150) Cholesterol Level 157 mg/dl (0-200) HDL Cholesterol 42 mg/dl LDL Cholesterol, Calculated 90 mg/dl VLDL Cholesterol, Calculated 25 mg/dl Cholesterol/HDL Ratio 3.7 Imaging As noted above in history of present illness Impression This is an 81-year-old right-handed male with acute onset (possibly acute on chronic) weakness of right upper extremity weakness, along with more chronic right lower extremity weakness that has been worsening over the last week. Patient does have some significant right shoulder pain with passive motion, likely indicating some component of intrinsic shoulder dysfunction contributing to his weakness. Patient also has decreased right hand leadite worker and median distribution numbness that may be more carpal tunnel syndrome. May have a peripheral median neuropathy versus cervical radiculopathy. Right lower extremity weakness appears to be more chronic and likely secondary to a upper to mid lumbar radiculopathy. Not sure that there was ever a clear right facial droop. Slurred speech is nonspecific and could of occurred in the setting of anxiety. Overall it is not clear to me that the patient has had a stroke or TIA, it seems that he may have had more acute on chronic worsening of right arm weakness with chronic right lower extremity weakness. Plan Recommend MRI cervical and lumbar spine combo for further evaluation. Patient will need Ativan premedication for claustrophobia. Daughter was requesting MRI of the right knee as the patient was supposed to get this done today per orthopedics to look for meniscal tear, but I'll leave this up to the hospitalist group. Agree with evaluating patient's stroke risk factors. Neurological recommendations for stroke risk factor modifications: BP goals 130/80-110/70 Total cholesterol goal 100-200, and LDL goal less than 100 Hemoglobin A1c goal less than 7 Encourage regular cardiovascular exercise at least 30 minutes 3 times per week Follow-up PT/OT and speech recommendations for discharge planning If there is a clear structural lesion in the patient's cervical spine that would explain his worsening right upper extremity weakness, the patient may not need Plavix. If MRI of the C & L-spine do not show a reason for his weakness, could consider repeating an MRI of the brain tomorrow with an MRA of the head and neck. If there is any questions or concerns, feel free to call/page me
[2016-12-10] MEDS ORDERED: PERFLUTREN LIPID MICROSPHERE (DEFINITY) IV ONE (09:22)
[2016-12-10] MEDS ORDERED: LORAZEPAM INJ 0.5 MG in SYRINGE 0.25 ML IV ONE (12:00)
--- NOTE | 2016-12-10 12:39 | Medical Student: [facility] ---
Med Student History & Physical Date & Time of Service: Dec 10, 2016 at 11:25 Chief Complaint: TIA Primary Care Physician: Major Chen M.D. History of Present Illness Source: patient, family (daughter ), hospital records CC: right sided weakness & numbness HPI: The patient is a 81-year-old right-handed male with PMH significant for BPH , CAD, cardiac catheterization in 2002, HTN, and peptic ulcer disease who presented to the ER on 12/09/16 at 1457 with right sided upper and lower extremity weakness and numbness as well as slurred speech. It started 7-8 hours before presentation to the ER during breakfast. He noticed he had decreased hand cigarette seller when trying to use his utensil. He also noticed he had decreased leg strength when trying to put on his shoe this morning. He had to use his arms to raise his legs. Additionally, he did have some blurry vision when trying to read and he noted a sensation of a "light flickering." He does have a history of right 1st and 2nd digit numbness and tingling. Additionally, he has a 1-2 week history of right knee pain and right leg weakness. A past note described the pain as right calf discomfort of 1 week duration. He was actually scheduled for a right knee MRI today for a possible meniscal tear. He also has a history of low back pain which radiates down his right leg. In the ER, he was noted to have a right facial droop and a drift to his right arm and right leg. He was having worsening SOB, but this has been persistent since a hospitalization in August for bronchitis. He denied chest pain or COOMBS. His vitals were all normal except he was hypertensive at 184/88. His labs were normal as well except for hyperglycemia at 134. He was given 1000 mL NaCl @ 50 mL/hr, acetaminophen 650 mg, and hydralazine [address] showed no evidence of acute intracranial abnormality. Brain MRI also showed no evidence of acute intracranial abnormality. EKG showed normal sinus rhythm, some PACs and LVH, but no ischemic process. Carotid US showed no hemodynamically significant stenosis. A right lower extremity US was ordered due to his history of right lower calf tenderness, but was negative for a DVT. The patient was very tearful during the entire visit. 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 PMH: 1) BPH 2) CAD 3)cardiac catheterization in 2002 4) HTN, 5) peptic ulcer disease Surgical History: 1) heart catheterization in 2002 2) cataract surgery 3) surgery for peptic ulcer Meds: 1) Amlodipine 5 mg daily 2) Sennosides-Docusate 1 tab per day 3) Diclofenac-sodium topical 4) Tamsulosin 0.4 mg daily Allergies: Sulfa drugs Social History: His this past September d/t complications from a stroke 11 years ago. 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 He lives alone in [place], [place]. He does not consume alcohol. He is a former smoker and quit about 30 years ago. He did smoke for 20 years and smoked about 1 pack/day. FH: His family history is significant for his mother having diabetes, brother having heart disease, and sister having cancer. There is no history of stroke in his family. Past Medical/Surgical History Medical Problems: (1) Stroke Status: Acute Surgical Problems: (1) History of cardiac cath Status: Resolved Social History Smoking Status: Never Smoker Marital Status: Occupational Status: retired Allergies Coded Allergies: Sulfa Antibiotics (Verified Allergy, Severe, EDEMA, 12/09/16) Medications Amlodipine Besylate (Norvasc), 5 MG PO DAILY Diclofenac Sodium (Topical) (Voltaren 1% Top Gel), 1 APPLN TOP Sennosides-Docusate Sodium (Stool Softener), 1 TAB PO PRN Tamsulosin Hcl (Flomax), 0.4 MG PO Tramadol Hcl (Ultram), 50 MG PO Q4H Review of Systems Constitutional: No fever Respiratory: + shortness of breath Cardiovascular: No chest pain Abdomen: No constipation, No diarrhea Neurologic: + numbness/tingling, + weakness Physical Exam Vital Signs (24 Hours) Date Time Temp Pulse Resp B/P Pulse Ox O2 Delivery O2 Flow Rate FiO2 12/10/16 08:00 95 Room Air 12/10/16 07:52 36.6 77 18 147/81 95 Room Air 12/10/16 04:41 36.7 79 18 122/69 98 Room Air 12/10/16 04:00 Room Air 12/09/16 23:59 Room Air 12/09/16 23:34 36.7 81 18 144/78 94 Room Air 12/09/16 20:00 Room Air 12/09/16 19:34 36.6 92 20 165/83 95 Room Air 12/09/16 18:20 36.6 80 16 175/92 96 Room Air 12/09/16 17:19 76 20 143/95 95 Room Air 12/09/16 16:27 78 20 185/102 94 Room Air 12/09/16 14:59 75 12/09/16 14:59 95 Room Air 12/09/16 14:17 36.7 86 20 184/88 96 Room Air Vitals: temp 36.6, HR 77, RR 18, BP 147/81, O2 sat 95 Neurological: The patient is a pleasant 81-year-old right-handed male who is in no apparent distress. Spontaneous speech is of normal rate and tone, with slight dysarthria. He is oriented to person, place and time and has an appropriate fund of knowledge. His affect is flat and he was tearful during the entire exam. The patient has normal tone. Strength was 4/5 in right hand intrinsics, wrist flexors, wrist extensors, biceps, triceps, and deltoid. Strength was 5/5 in left hand intrinsics, wrist flexors, wrist extensors, biceps, triceps, and deltoid. Strength was 5/5 in trapezius bilaterally, symmetrically. Strength was 4/5 in right hip flexors, knee flexors, knee extensors, ankle extensors, and ankle flexors. Strength was 5/5 in left hip flexors, knee flexors, knee extensors, ankle extensors, and ankle flexors. Light touch sensation was intact throughout except for diminished sensation in the right median nerve dermatomal distribution and right L3 nerve dermatomal distribution. Proprioception was intact in lower and upper extremities bilaterally. Vibratory sense was intact in lower and upper extremities bilaterally. Reflexes were 1+ in biceps, triceps, brachioradialis, and achilles bilaterally. Reflexes were 1 + in right patellar, but 0 in left patellar. Toes were downgoing on babinski reflex testing. There was no dysmetria on [id number] testing. No tremor was appreciated. There was no pronator drift. Cranial Nerve Exam: CN I: no tested CN II: pupils equal, round, and reactive to light. Peripheral guerra intact. CN III: pupils equal, round, and reactive to light. Extraocular movements intact. No nystagmus. CN IV: Extraocular movements intact. No nystagmus CN V: symmetrical sensation to light touch over the 3 distributions of CN V. [place] palpated and symmetrical. CN : Extraocular movements intact. CN VII: symmetrical wrinkling of forehead, eye closure, smile, and cheek expansion. CN VIII: not tested CN IX: uvula midline CN X: uvula midline CN XI: trapezius muscle moves symmetrically, 5/5 bilaterally CN XII: tongue protrudes midline Cardio: RRR, normal S1 and S2, 3/6 systolic murmur heard best at the left upper sternal border with no radiation to the carotids. Distal pulses in upper and lower extremities were 2+ bilaterally. MSK: decreased right shoulder passive and active range of motion Diagnostics Laboratory Results Results Past 24 Hours Test 12/09/16 15:01 12/09/16 15:02 12/09/16 15:05 12/09/16 16:00 Range/Units Bedside Prothrombin Time INR 0.9 0.9-1.1 Bedside Glucose 122 70-99 mg/dl White Blood Count 9.60 4.8-10.8 K/uL Red Blood Count 4.78 4.7-6.1 M/uL Hemoglobin 14.9 14.0-18.0 g/dL Hematocrit 42.3 42-52 % Mean Corpuscular Volume 88.5 80-100 fL Mean Corpuscular Hemoglobin 31.2 25-34 pg Mean Corpuscular Hemoglobin Concent 35.2 32-36 g/dl Platelet Count 195 130-400 K/uL Mean Platelet Volume 10.0 7.4-10.4 fL Neutrophils (%) (Auto) 69.0 % Lymphocytes (%) (Auto) 18.9 % Monocytes (%) (Auto) 7.8 % Eosinophils (%) (Auto) 3.8 % Basophils (%) (Auto) 0.3 % Neutrophils # (Auto) 6.63 1.4-6.5 K/uL Lymphocytes # (Auto) 1.81 1.2-3.4 K/uL Monocytes # (Auto) 0.75 0.11-0.59 K/uL Eosinophils # (Auto) 0.36 0-0.5 K/uL Basophils # (Auto) 0.03 0-0.2 K/uL RDW Standard Deviation 45.6 36.4-46.3 fL RDW Coefficient of Variation 14.0 11.5-14.5 % Immature Granulocyte % (Auto) 0.2 % Immature Granulocyte # (Auto) 0.02 0.00-0.02 K/uL Prothrombin Time 10.4 9.0-12.0 SECONDS Prothromb Time International Ratio 1.0 0.9-1.1 Activated Partial Thromboplast Time 30.2 21.0-31.0 SECONDS Partial Thromboplastin Ratio 1.2 Sodium Level 138 136-145 mmol/L Potassium Level 4.0 3.5-5.1 mmol/L Chloride Level 103 98-107 mmol/L Carbon Dioxide Level 25 21-32 mmol/L Anion Gap 10.0 3-11 mmol/L Blood Urea Nitrogen 16 7-18 mg/dl Creatinine 1.30 0.60-1.40 mg/dl Est Creatinine Clear Calc Drug Dose 46.0 ml/min Estimated GFR () 58.9 Estimated GFR (Non- 50.8 BUN/Creatinine Ratio 12.5 10-20 Random Glucose 134 70-99 mg/dl Calcium Level 8.8 8.5-10.1 mg/dl Magnesium Level 2.2 1.8-2.4 mg/dl Total Bilirubin 0.6 0.2-1 mg/dl Direct Bilirubin 0.1 0-0.2 mg/dl Aspartate Amino Transf (AST/SGOT) 19 15-37 U/L Alanine Aminotransferase (ALT/SGPT) 33 12-78 U/L Alkaline Phosphatase 88 45-117 U/L Total Creatine Kinase 139 39-308 U/L Creatine Kinase MB 2.2 0.5-3.6 ng/ml Creatine Kinase MB Ratio 1.6 0-3.0 Troponin I < 0.015 0-0.045 ng/ml Total Protein 6.6 6.4-8.2 gm/dl Albumin 3.3 3.4-5.0 gm/dl Thyroid Stimulating Hormone (TSH) 1.050 0.300-4.500 uIu/ml Urine Opiates Screen NEG NEG Urine Methadone, Qualitative NEG NEG Urine Barbiturates NEG NEG Urine Phencyclidine (PCP) Level NEG NEG Ur Amphetamine/Methamphetamine NEG NEG MDMA (Ecstasy) Screen NEG NEG Urine Benzodiazepines Screen NEG NEG Urine Cocaine Metabolite NEG NEG Urine Marijuana (THC) NEG NEG Test 12/09/16 22:58 4/6/17 06:50 Range/Units Creatine Kinase MB 2.0 1.3 0.5-3.6 ng/ml Creatine Kinase MB Ratio 0-3.0 Troponin I < 0.015 < 0.015 0-0.045 ng/ml White Blood Count 9.00 4.8-10.8 K/uL Red Blood Count 4.89 4.7-6.1 M/uL Hemoglobin 15.3 14.0-18.0 g/dL Hematocrit 43.1 42-52 % Mean Corpuscular Volume 88.1 80-100 fL Mean Corpuscular Hemoglobin 31.3 25-34 pg Mean Corpuscular Hemoglobin Concent 35.5 32-36 g/dl Platelet Count 200 130-400 K/uL Mean Platelet Volume 9.8 7.4-10.4 fL Neutrophils (%) (Auto) 70.3 % Lymphocytes (%) (Auto) 14.7 % Monocytes (%) (Auto) 9.6 % Eosinophils (%) (Auto) 4.8 % Basophils (%) (Auto) 0.4 % Neutrophils # (Auto) 6.33 1.4-6.5 K/uL Lymphocytes # (Auto) 1.32 1.2-3.4 K/uL Monocytes # (Auto) 0.86 0.11-0.59 K/uL Eosinophils # (Auto) 0.43 0-0.5 K/uL Basophils # (Auto) 0.04 0-0.2 K/uL RDW Standard Deviation 46.0 36.4-46.3 fL RDW Coefficient of Variation 14.2 11.5-14.5 % Immature Granulocyte % (Auto) 0.2 % Immature Granulocyte # (Auto) 0.02 0.00-0.02 K/uL Sodium Level 139 136-145 mmol/L Potassium Level 3.9 3.5-5.1 mmol/L Chloride Level 106 98-107 mmol/L Carbon Dioxide Level 25 21-32 mmol/L Anion Gap 8.0 3-11 mmol/L Blood Urea Nitrogen 13 7-18 mg/dl Creatinine 1.20 0.60-1.40 mg/dl Est Creatinine Clear Calc Drug Dose 48.6 ml/min Estimated GFR () 64.9 Estimated GFR (Non- 56.0 BUN/Creatinine Ratio 10.7 10-20 Random Glucose 142 70-99 mg/dl Estimated Average Glucose 154 mg/dl Hemoglobin A1c 7.0 4.5-5.6 % Calcium Level 8.8 8.5-10.1 mg/dl Triglycerides Level 124 0-150 mg/dl Cholesterol Level 157 0-200 mg/dl HDL Cholesterol 42 mg/dl LDL Cholesterol, Calculated 90 mg/dl VLDL Cholesterol, Calculated 25 mg/dl Cholesterol/HDL Ratio 3.[address] without contrast HEAD CT NONCONTRAST CT DOSE: 720.95 mGycm HISTORY: Mental status change Stroke TECHNIQUE: Multiaxial CT images of the head were performed without the use of intravenous contrast. Comparison: None. Findings: The paranasal sinuses and mastoid air cells are clear. The calvarium and skull base are intact. The ventricles and sulci are within normal limits. There is no mass, hematoma, midline shift, or acute infarct. Impression: No acute intracranial abnormality. Brain MRI MRI OF THE BRAIN WITHOUT AND WITH IV CONTRAST CLINICAL HISTORY: Right sided numbness. Stroke. COMPARISON STUDY: Head CT performed earlier today. TECHNIQUE: Utilizing a 1.5 Tisha magnet and dedicated coil, multiplanar, multiecho imaging of the brain was performed pre and postcontrast administration. IV administration of 9 mL of Gadavist contrast was uneventful. FINDINGS: This exam is mildly compromised by motion artifact. There are no areas of restricted diffusion. No acute intracranial hemorrhage, midline shift or mass effect is present. Moderate atrophy is noted. Mild white matter T2 hyperintensity suggest small vessel disease. No intracranial mass or pathologic enhancement is present. Ventricular system is unremarkable for age. Calvarial signal is maintained. IMPRESSION: 1. No acute intracranial findings. 2. No intracranial mass or pathologic enhancement. 3. Moderate atrophy and mild small vessel disease. Right Lower Extremity Doppler US RIGHT LOWER EXTREMITY VENOUS DOPPLER CLINICAL HISTORY: Right calf pain. COMPARISON STUDY: No previous studies for comparison. TECHNIQUE: Sonography of the deep venous system of the right lower extremity was performed. Compression and augmentation were evaluated. FINDINGS: The right common femoral, superficial femoral and popliteal veins were compressible. Augmentation was normal. Flow was shown within the deep calf vessels. IMPRESSION: No evidence of deep venous thrombus within the right lower extremity. Carotid Artery US CAROTID ARTERY ULTRASOUND CLINICAL HISTORY: Stroke COMPARISON STUDY: None. TECHNIQUE: Real-time, grayscale, and color Doppler sonography of the carotid and vertebral arteries was performed. Images were viewed in the transverse and longitudinal planes. FINDINGS: There is mild atherosclerotic plaque. Velocity measurements are listed below. COMMON CAROTID PEAK SYSTOLIC VELOCITY (CM/S): RIGHT 113 LEFT 123 ICA PEAK SYSTOLIC VELOCITY (CM/S): RIGHT 85 LEFT 71 The systolic ratios between the internal to common carotid arteries were normal. Antegrade flow is seen in the vertebral arteries. The external carotid arteries are patent. Blood pressure in the right arm measured 136/70. Blood pressure in the left arm measured 141/68. IMPRESSION: No evidence of a hemodynamically significant stenosis. Impression Assessment and Plan Assessment: The patient is a 81-year-old right-handed male with a PMH significant for BPH, CAD, cardiac catheterization 2002, HTN, and peptic ulcer disease who presented to the ER yesterday (12/09/16) at 1457 with right sided upper and lower extremity weakness and numbness as well as slurred speech. Physical exam findings, history of upper and lower extremity weakness and numbness, and review of the Brain MRI indicate the etiology of this numbness/ weakness may be multifactorial, but is most likely not a TIA or stroke. The patient's presentation is most likely associated with mid lumbar radiculopathy, peripheral median neuropathy versus cervical radiculopathy, and possibly carpal tunnel syndrome. Differential Diagnosis: -I suspect one component of this presentation is mid lumbar radiculopathy. The patient has a history of right knee pain as well as right leg pain/weakness. His daughter described his weakness as difficulty putting on his shoes because he can't raise his right leg and when he needs to move his right leg, he uses his hands to help. It was suspected that he may have a torn meniscus in his right knee by an orthopedic surgeon. The patient also describes a history of low back pain and radiation of pain down his right leg. 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 She was a hemiplegic as a result of a stroke 11 years ago. He helped her with all ADLs which included lifting her in and out of her wheelchair every day. This constant lifting may have lead to degenerative changes in this patients lumbar spine, which eventually lead to nerve compression. Strength in his right lower extremities was 4/5 compared to his left lower extremity which was 5/5. Additionally, he had decreased sensation in the L3 nerve dermatome on his right side. Decreased strength and sensation in his right lower extremity in conjunction with his history of low back pain, radiation of pain down his right leg, and right knee/right leg pain/ weakness indicate this patient most likely has a L3-L4 lumbar radiculopathy. -I suspect another component of this presentation is cervical radiculopathy vs. peripheral medial nerve neuropathy vs carpal tunnel syndrome. On physical exam, the patient had decreased passive and active range of motion of his right shoulder and significant right shoulder pain. Additionally, he had decreased right sided hand cigarette seller and right upper extremity strength was 4/5 compared to left upper extremity strength which was 5/5. Additionally, he had decreased sensation of the median nerve distribution of his right arm, especially in the thenar eminence. The patient also has a history of right 1st and 2nd digit numbness and tingling. He has been seeing a chiropractor for this. Based on his presentation of acute right arm/hand weakness and signs of chronic shoulder degeneration, I believe this is an acute on chronic weakness of his right upper extremity. Cervical radiculopathy is more unlikely because the patient did not complain of current or past neck pain as well as headaches. Decreased shoulder flexion and abduction is most likely due to an intrinsic shoulder injury such as rotator cuff tendinopathy or impingement. Carpal tunnel syndrome is certainly plausible given his history of right 1st and 2nd digit numbness/ weakness as well as decreased thenar eminence sensation. -Another consideration is thoracic outlet syndrome. He could possibly have neurogenic thoracic outlet syndrome. He does have a right sided upper extremity sensory deficit in the median nerve distribution as well as diffuse right upper extremity weakness. Sensory abnormalities in the T1 distribution are common in thoracic outlet syndrome, which was not seen in this patient, however. He could have developed thoracic outlet syndrome from years of repetitive wear and tear of caring for his hemiplegic . Additionally, it is often the underlying cause of refracting upper limb conditions such as frozen shoulder or carpal tunnel syndrome so it should be considered if treatments for other more likely diagnoses fail. -Another consideration is transient ischemic attack vs. stroke The patient did present with acute right sided upper extremity weakness in which he suddenly had a difficult time gripping his utensil with his hand at breakfast yesterday. Additionally, he described an acute right sided leg weakness as well. It is unsure whether he truly had a right sided facial droop in the ER. It was recorded in the chart, but today on physical exam, he had no signs of right sided facial droop. Additionally, he described slurred speech yesterday, but his daughter does not recall significant slurring of speech. And if slurred speech was present, it may have been due to anxiety of the other presenting symptoms. Head CT and brain MRI were negative for an acute ischemic process. A small lacunar stroke is still plausible because sometimes they are not evident in early brain MRIs. He does have some cerebrovascular atherosclerotic risk factors including HTN and he does have a history of CAD. Although he does possess some risk factors and his presentation could be consistent with a stroke , it is unlikely given his chronic complaints of right sided weakness, back pain , and right 1st and 2nd digit numbness. Plan: -Order cervical and lumbar MRI with contrast to further evaluate for a spine pathology causing nerve compression. The patient is claustrophobic and will need Ativan for the scan. Add on a right knee MRI if possible per daughter's request. The patient was originally scheduled for a right knee MRI today to evaluate for a possible right knee meniscal injury. -if cervical and lumbar MRI do not show clear etiology for weakness, then we should consider a brain MRI and MRA of head and neck tomorrow to evaluate further for cerebrovascular cause -Evaluate and work-up stroke risk factor -Echo is still pending -EKG, brain MRI, brain CT, and carotid US already performed and reviewed -Lipid panel and HbgA1C already ordered and reviewed -continue Plavix 75 mg daily and Atorvastatin 40 mg daily until TIA/stroke is completely ruled out. If he has cervical and/or lumbar radiculopathy, this would explain his weakness/numbness and he would not need Plavix for stroke prevention. -For now, until TIA/Stroke is completely ruled out, continue recommendations for stroke risk factor modifications: -BP goals 130/80-110/70 -total cholesterol goal 100-200 -LDL goal <100 -hemoglobin A1C goal <7 Neurology attending addendum: Patient was seen and evaluated with medical student. Please see my separate neurology consult note for full evaluation and recommendations. -Eloina Das, DO Advanced Directives Existing Living Will: No Existing Power of Correctional Agency Director: No
--- NOTE | 2016-12-10 13:11 | Hospitalist Progress Note ---
Hospitalist Progress Note Date of Service Dec 10, 2016. (Regina Sevilla PA-C) Subjective Pt evaluation today including: conversation w/ patient, conversation w/ family , physical exam, chart review, lab review, review of studies, review of inpatient medication list Patient reports feeling well today. Does admit to still having some numbness and tingling in the right arm and right leg. He also admits to feeling slightly weak on the right side still. He is however reluctant to tell me this. He is very focused on being discharged today. He denies any new symptoms such as headache, changes in vision, chest pain or pressure or shortness of breath. No fever or chills. Additional Comments: 6 system review negative. Please see pertinent positives in the history of present illness section. (Regina Sevilla PA-C) Objective Vital Signs Date Time Temp Pulse Resp B/P Pulse Ox O2 Delivery O2 Flow Rate FiO2 12/10/16 12:07 36.5 86 20 153/90 94 Room Air 12/10/16 12:00 95 Room Air 12/10/16 08:00 95 Room Air 12/10/16 07:52 36.6 77 18 147/81 95 Room Air 12/10/16 04:41 36.7 79 18 122/69 98 Room Air 12/10/16 04:00 Room Air 12/09/16 23:59 Room Air 12/09/16 23:34 36.7 81 18 144/78 94 Room Air 12/09/16 20:00 Room Air 12/09/16 19:34 36.6 92 20 165/83 95 Room Air 12/09/16 18:20 36.6 80 16 175/92 96 Room Air 12/09/16 17:19 76 20 143/95 95 Room Air 12/09/16 16:27 78 20 185/102 94 Room Air 12/09/16 14:59 75 12/09/16 14:59 95 Room Air 12/09/16 14:17 36.7 86 20 184/88 96 Room Air (Regina Sevilla PA-C) Physical Exam General Appearance: no apparent distress ENT: + pertinent finding (no facial droop appreciated) Neck: no JVD Respiratory/Chest: + pertinent finding (few crackles noted at the bases bilaterally.) Cardiovascular: regular rate, rhythm, + systolic murmur Abdomen: normal bowel sounds, non tender, soft Extremities: + pertinent finding (weakness noted with flexion of the R shoulder. + empty can test. Slightly weaker obiee obia solution architect noted with the right upper extremity. No erythema or edema noted in the lower extremities bilaterally.) Neurologic/Psychiatric: + pertinent finding (findings with the right upper extremity as noted above. Weakness with flexion of the right hip. Dorsiflexion and plantar flexion of the feet equal bilaterally. Pain with any range of motion of the right knee. Sensation appears to be equal on both sides. ) Skin: warm/dry (Regina Sevilla, BERTA) Laboratory Results 12/10/16 06:50 Red Blood Count 4.89, Mean Corpuscular Volume 88.1, Mean Corpuscular Hemoglobin 31.3, Mean Corpuscular Hemoglobin Concent 35.5, Mean Platelet Volume 9.8, Neutrophils (%) (Auto) 70.3, Lymphocytes (%) (Auto) 14.7, Monocytes (%) (Auto) 9.6, Eosinophils (%) (Auto) 4.8, Basophils (%) (Auto) 0.4, Neutrophils # (Auto) 6.33, Lymphocytes # (Auto) 1.32, Monocytes # (Auto) 0.86, Eosinophils # (Auto) 0.43, Basophils # (Auto) 0.04 12/10/16 06:50 Test 12/09/16 15:01 12/09/16 15:02 12/09/16 15:05 12/09/16 16:00 Bedside Prothrombin Time INR 0.9 (0.9-1.1) Bedside Glucose 122 mg/dl (70-99) Prothrombin Time 10.4 SECONDS (9.0-12.0) Prothromb Time International Ratio 1.0 (0.9-1.1) Activated Partial Thromboplast Time 30.2 SECONDS (21.0-31.0) Partial Thromboplastin Ratio 1.2 Magnesium Level 2.2 mg/dl (1.8-2.4) Total Bilirubin 0.6 mg/dl (0.2-1) Direct Bilirubin 0.1 mg/dl (0-0.2) Aspartate Amino Transf (AST/SGOT) 19 U/L (15-37) Alanine Aminotransferase (ALT/SGPT) 33 U/L (12-78) Alkaline Phosphatase 88 U/L (45-117) Total Creatine Kinase 139 U/L (39-308) Total Protein 6.6 gm/dl (6.4-8.2) Albumin 3.3 gm/dl (3.4-5.0) Thyroid Stimulating Hormone (TSH) 1.050 uIu/ml (0.300-4.500) Urine Opiates Screen NEG (NEG) Urine Methadone, Qualitative NEG (NEG) Urine Barbiturates NEG (NEG) Urine Phencyclidine (PCP) Level NEG (NEG) Ur Amphetamine/Methamphetamine NEG (NEG) MDMA (Ecstasy) Screen NEG (NEG) Urine Benzodiazepines Screen NEG (NEG) Urine Cocaine Metabolite NEG (NEG) Urine Marijuana (THC) NEG (NEG) Test 12/10/16 06:50 White Blood Count 9.00 K/uL (4.8-10.8) Red Blood Count 4.89 M/uL (4.7-6.1) Hemoglobin 15.3 g/dL (14.0-18.0) Hematocrit 43.1 % (42-52) Mean Corpuscular Volume 88.1 fL (80-100) Mean Corpuscular Hemoglobin 31.3 pg (25-34) Mean Corpuscular Hemoglobin Concent 35.5 g/dl (32-36) Platelet Count 200 K/uL (130-400) Mean Platelet Volume 9.8 fL (7.4-10.4) Neutrophils (%) (Auto) 70.3 % Lymphocytes (%) (Auto) 14.7 % Monocytes (%) (Auto) 9.6 % Eosinophils (%) (Auto) 4.8 % Basophils (%) (Auto) 0.4 % Neutrophils # (Auto) 6.33 K/uL (1.4-6.5) Lymphocytes # (Auto) 1.32 K/uL (1.2-3.4) Monocytes # (Auto) 0.86 K/uL (0.11-0.59) Eosinophils # (Auto) 0.43 K/uL (0-0.5) Basophils # (Auto) 0.04 K/uL (0-0.2) RDW Standard Deviation 46.0 fL (36.4-46.3) RDW Coefficient of Variation 14.2 % (11.5-14.5) Immature Granulocyte % (Auto) 0.2 % Immature Granulocyte # (Auto) 0.02 K/uL (0.00-0.02) Anion Gap 8.0 mmol/L (3-11) Est Creatinine Clear Calc Drug Dose 48.6 ml/min Estimated GFR () 64.9 Estimated GFR (Non- 56.0 BUN/Creatinine Ratio 10.7 (10-20) Estimated Average Glucose 154 mg/dl Hemoglobin A1c 7.0 % (4.5-5.6) Calcium Level 8.8 mg/dl (8.5-10.1) Creatine Kinase MB 1.3 ng/ml (0.5-3.6) Creatine Kinase MB Ratio (0-3.0) Troponin I < 0.015 ng/ml (0-0.045) Triglycerides Level 124 mg/dl (0-150) Cholesterol Level 157 mg/dl (0-200) HDL Cholesterol 42 mg/dl LDL Cholesterol, Calculated 90 mg/dl VLDL Cholesterol, Calculated 25 mg/dl Cholesterol/HDL Ratio 3.7 Last 24 Hours Test 12/09/16 15:01 12/09/16 15:02 12/09/16 15:05 12/09/16 16:00 Bedside Prothrombin Time INR 0.9 Bedside Glucose 122 mg/dl White Blood Count 9.60 K/uL Red Blood Count 4.78 M/uL Hemoglobin 14.9 g/dL Hematocrit 42.3 % Mean Corpuscular Volume 88.5 fL Mean Corpuscular Hemoglobin 31.2 pg Mean Corpuscular Hemoglobin Concent 35.2 g/dl Platelet Count 195 K/uL Mean Platelet Volume 10.0 fL Neutrophils (%) (Auto) 69.0 % Lymphocytes (%) (Auto) 18.9 % Monocytes (%) (Auto) 7.8 % Eosinophils (%) (Auto) 3.8 % Basophils (%) (Auto) 0.3 % Neutrophils # (Auto) 6.63 K/uL Lymphocytes # (Auto) 1.81 K/uL Monocytes # (Auto) 0.75 K/uL Eosinophils # (Auto) 0.36 K/uL Basophils # (Auto) 0.03 K/uL RDW Standard Deviation 45.6 fL RDW Coefficient of Variation 14.0 % Immature Granulocyte % (Auto) 0.2 % Immature Granulocyte # (Auto) 0.02 K/uL Prothrombin Time 10.4 SECONDS Prothromb Time International Ratio 1.0 Activated Partial Thromboplast Time 30.2 SECONDS Partial Thromboplastin Ratio 1.2 Sodium Level 138 mmol/L Potassium Level 4.0 mmol/L Chloride Level 103 mmol/L Carbon Dioxide Level 25 mmol/L Anion Gap 10.0 mmol/L Blood Urea Nitrogen 16 mg/dl Creatinine 1.30 mg/dl Est Creatinine Clear Calc Drug Dose 46.0 ml/min Estimated GFR () 58.9 Estimated GFR (Non- 50.8 BUN/Creatinine Ratio 12.5 Random Glucose 134 mg/dl Calcium Level 8.8 mg/dl Magnesium Level 2.2 mg/dl Total Bilirubin 0.6 mg/dl Direct Bilirubin 0.1 mg/dl Aspartate Amino Transf (AST/SGOT) 19 U/L Alanine Aminotransferase (ALT/SGPT) 33 U/L Alkaline Phosphatase 88 U/L Total Creatine Kinase 139 U/L Creatine Kinase MB 2.2 ng/ml Creatine Kinase MB Ratio 1.6 Troponin I < 0.015 ng/ml Total Protein 6.6 gm/dl Albumin 3.3 gm/dl Thyroid Stimulating Hormone (TSH) 1.050 uIu/ml Urine Opiates Screen NEG Urine Methadone, Qualitative NEG Urine Barbiturates NEG Urine Phencyclidine (PCP) Level NEG Ur Amphetamine/Methamphetamine NEG MDMA (Ecstasy) Screen NEG Urine Benzodiazepines Screen NEG Urine Cocaine Metabolite NEG Urine Marijuana (THC) NEG Test 12/09/16 22:58 12/10/16 06:50 Creatine Kinase MB 2.0 ng/ml 1.3 ng/ml Creatine Kinase MB Ratio Troponin I < 0.015 ng/ml < 0.015 ng/ml White Blood Count 9.00 K/uL Red Blood Count 4.89 M/uL Hemoglobin 15.3 g/dL Hematocrit 43.1 % Mean Corpuscular Volume 88.1 fL Mean Corpuscular Hemoglobin 31.3 pg Mean Corpuscular Hemoglobin Concent 35.5 g/dl Platelet Count 200 K/uL Mean Platelet Volume 9.8 fL Neutrophils (%) (Auto) 70.3 % Lymphocytes (%) (Auto) 14.7 % Monocytes (%) (Auto) 9.6 % Eosinophils (%) (Auto) 4.8 % Basophils (%) (Auto) 0.4 % Neutrophils # (Auto) 6.33 K/uL Lymphocytes # (Auto) 1.32 K/uL Monocytes # (Auto) 0.86 K/uL Eosinophils # (Auto) 0.43 K/uL Basophils # (Auto) 0.04 K/uL RDW Standard Deviation 46.0 fL RDW Coefficient of Variation 14.2 % Immature Granulocyte % (Auto) 0.2 % Immature Granulocyte # (Auto) 0.02 K/uL Sodium Level 139 mmol/L Potassium Level 3.9 mmol/L Chloride Level 106 mmol/L Carbon Dioxide Level 25 mmol/L Anion Gap 8.0 mmol/L Blood Urea Nitrogen 13 mg/dl Creatinine 1.20 mg/dl Est Creatinine Clear Calc Drug Dose 48.6 ml/min Estimated GFR () 64.9 Estimated GFR (Non- 56.0 BUN/Creatinine Ratio 10.7 Random Glucose 142 mg/dl Estimated Average Glucose 154 mg/dl Hemoglobin A1c 7.0 % Calcium Level 8.8 mg/dl Triglycerides Level 124 mg/dl Cholesterol Level 157 mg/dl HDL Cholesterol 42 mg/dl LDL Cholesterol, Calculated 90 mg/dl VLDL Cholesterol, Calculated 25 mg/dl Cholesterol/HDL Ratio 3.7 (Regina Sevilla PA-C) Diagnostic Results MRI brain combo IMPRESSION: 1. No acute intracranial findings. 2. No intracranial mass or pathologic enhancement. 3. Moderate atrophy and mild small vessel disease. Electronically signed by: Gustavo Amaya M.D. 12/09/2016 10:08 PM Dictated Date/Time: 12/09/2016 10:03 PM The status of this report is Signed. Draft = Not yet reviewed or approved by Radiologist. Signed = Reviewed and approved by Radiologist. <AttendingPhy>Saúl Mirza M.D.</AttendingPhy> <FamilyPhy>Major Chen M.D.</FamilyPhy> <PrimaryPhy>Major Chen M.D.</PrimaryPhy> <UnitNumber>[id number] </UnitNumber (Regina Sevilla PA-C) Assessment and Plan 81-year-old male presents to the emergency department with complaints of right- sided weakness and possible slurred speech that started on the morning of 12/09. The patient thinks that his symptoms are somewhat improved this morning Right-sided weakness-? Etiology at this point unclear. Neuro vs orthopedic cause -MRI, carotid ultrasound negative -Appreciate neurology's recommendations. Agree that the patient needs an MRI of the cervical and lumbar spine to rule out disc disease/radiculopathy -There does seem to be an aspect of right shoulder pain, possibly a rotator cuff injury-->start with R shoulder xrays. Will likely need orthopedic f/u for this -Continue atorvastatin and plavix for now -Consider MRI/MRA head tomorrow if spine imaging is normal -f/u echo -PT/OT eval -possible ortho consult pending imaging HTN -Continue Norvasc 5 mg daily BPH -Continue Flomax daily DVT prophylaxis -Heparin 5000 u subQ BID -TEDS, SCDs CODE STATUS -LEVEL V DO NO RESUSCITATE (Regina Sevilla, PA-C) I agree with PA assessment and plan and have seen and examined pt myself Pt sitting comfortably in chair States persistent right leg weakness/numbness And first three fingers numbness on right hang Agree with further imaging MRI lumbar spine and neck Neurology consulted Appreciate recs PT/OT consulted (Cayden Ruffin, D.O.)
--- NOTE | 2016-12-10 14:56 | DIAGNOSTIC IMAGING REPORT ---
RIGHT SHOULDER 3 VIEWS HISTORY: R shoulder pain/weakness Right COMPARISON: None. FINDINGS: No acute fracture or dislocation within the right shoulder. The right clavicle appears intact. 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 There is also mild AC joint arthrosis. Soft tissues are unremarkable. No radiopaque foreign bodies. IMPRESSION: No acute fracture or dislocation within the right shoulder. Degenerative changes as described above. Electronically signed by: Beau Piper M.D. 12/10/2016 2:54 PM Dictated Date/Time: 12/10/2016 2:52 PM
--- NOTE | 2016-12-10 17:06 | ECHOCARDIOGRAM REPORT ---
*NOTICE TO RECEIVING DEMOCRAT AGENCY This information is strictly Confidential and protected under [place] law. [place] law prohibits you from making any further disclosure of this information unless further disclosure is expressly permitted by the written consent of the person to whom it pertains or is authorized by law. A general authorization for the release of medical or other information is not sufficient for this purpose. Hospital accepts no responsibility if the information is made available to any other person, INCLUDING THE PATIENT. Interpretation Summary * Name: SHAHLA LOPEZ Study Date: 12/10/2016 09:03 AM BP: 122/69 mmHg * Patient Location: C.2T\S\E219\S\1 HR: 79 * : 1935 (M/d/yyyy) Gender: Male Height: 66 in * Age: 81 yrs Ethnicity: CA Weight: 198 lb * Ordering Physician: Daija Sanon * Referring Physician: Major Chen * Performed By: Ester Moran * * Reason For Study: CEREBRAL ISCHEMIA/ EMBOLUS * BSA: 2.0 m2 * Hyperdynamic left ventricular systolic function. * Normal right ventricular systolic function. * Left ventricular diastolic dysfunction. * Borderline left atrial dilatation. * Mild calcific aortic stenosis. * Trace aortic regurgitation. * The study was technically difficult. Procedure Details * A complete two-dimensional transthoracic echocardiogram was performed (2D, M-mode, Doppler and color flow Doppler). * The study was technically difficult. * There were technical limitations due to patient'sPoor acoustic windows secondary to severe lung disease. * A contrast injection of Definity was performed to improve assessment of LV function. * Contrast was injected into an intravenous site in the right arm. * One vial of Definity ultrasound contrast was diluted in normal saline to a total volume of 10 ml. A total of '2' ml of solution was administered during imaging. * Lot # [id number] of Definity utilized for procedure. * Expiration date 12/22. * The attending nurse who injected the contrast agent was COMFORT WILEY RN. Left Ventricle * The left ventricle is normal in size. * There is no thrombus. * There is normal left ventricular wall thickness. * A full diastolic examination was done with clinical findings of Class I diastolic dysfunction. * The left ventricle is hyperdynamic. * Ejection Fraction = >70 %. * No regional wall motion abnormalities noted. Right Ventricle * The right ventricle is normal in size and function. * The right ventricular systolic function is normal as assessed by tricuspid annular plane systolic excursion (TAPSE) (normal >1.5 cm). Atria * The left atrium is borderline dilated. * Right atrium not well visualized. Mitral Valve * There is mild mitral annular calcification. * The mitral valve is not well visualized. * There is no mitral valve stenosis. * Significant mitral regurgitation is absent. Tricuspid Valve * The tricuspid valve is not well visualized. * Significant tricuspid regurgitation is absent. Aortic Valve * The aortic valve is not well visualized. * The aortic valve appears to be trileaflet . The valve is calcified and has decreased opening on 2 D imaging. * Mild valvular aortic stenosis. * Aortic valve area was calculated at 1.6 cm\S\2 using the continuity equation. * Trace aortic regurgitation. Pulmonic Valve * The pulmonic valve is not well visualized. * The pulmonary valve is inadequately visualized, but the Doppler data is adequate for interpretation. * There is no pulmonic valvular stenosis. * There is no significant pulmonary regurgitation. Great Vessels * The aortic root is normal size. Pericardium/Pleural * There is no pericardial effusion. Great Vessels * Normal inferior vena cava diameter and respiratory variation suggests normal central venous pressure. MMode 2D Measurements and Calculations IVSd 1.1 cm LVPWd 0.95 cm IVS/LVPW 1.2 Ao root diam 3.5 cm Ao root area 9.4 cm\S\2 ACS 0.78 cm LA dimension 4.0 cm asc Aorta Diam 3.5 cm LA/Ao 1.2 LVOT diam 2.0 cm LVOT area 3.2 cm\S\2 LVAd ap4 23.3 cm\S\2 LVLd ap4 7.4 cm EDV(MOD-sp4) 59.7 ml EDV(sp4-el) 62.4 ml LVAs ap4 14.3 cm\S\2 LVLs ap4 6.6 cm ESV(MOD-sp4) 26.2 ml ESV(sp4-el) 26.3 ml EF(MOD-sp4) 56.1 % EF(sp4-el) 57.8 % SV(MOD-sp4) 33.5 ml SI(MOD-sp4) 16.8 ml/m\S\2 SV(sp4-el) 36.1 ml SI(sp4-el) 18.1 ml/m\S\2 Doppler Measurements and Calculations MV E max brandy 57.8 cm/sec MV A max brandy 99.5 cm/sec MV E/A 0.58 MV dec time 0.23 sec Ao V2 max 261.9 cm/sec Ao max PG 27.4 mmHg Ao max PG (full) 20.5 mmHg Ao V2 mean 173.0 cm/sec Ao mean PG 13.9 mmHg Ao V2 VTI 52.1 cm LEXUS(V,A) 1.6 cm\S\2 LEXUS(V,D) 1.6 cm\S\2 AI max brandy 340.0 cm/sec AI max PG 46.2 mmHg AI dec slope 116.2 cm/sec\S\2 AI P1/2t 857.2 msec LV V1 max PG 7.0 mmHg LV V1 max 132.2 cm/sec SV(Ao) 487.6 ml SI(Ao) 244.9 ml/m\S\2 PA V2 max 98.1 cm/sec PA max PG 3.9 mmHg
--- NOTE | 2016-12-10 22:44 | DIAGNOSTIC IMAGING REPORT ---
MRI CERVICAL SPINE COMBO CLINICAL HISTORY: Right upper extremity weakness and numbness. TECHNIQUE: Sagittal and axial T1, T2 and STIR images were obtained. Imaging was performed before and after the administration of 8 cc of intravenous Gadavist. COMPARISON STUDY: No previous studies for comparison. There is a T2 vertebral body hemangioma. There is a T3 focal fatty rest/hemangioma. 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 There is no spinal or foraminal stenosis. C3-4: There is no focal herniation. There is no significant spinal stenosis. There is right-sided foraminal stenosis C4-5: There is a circumferential disc bulge. There is minimal spinal canal narrowing. There is severe right-sided foraminal narrowing C5-6 :There is a circumferential disc bulge present. There is bilateral foraminal narrowing. C6-7: There is no evidence of disc bulge or focal herniation. There is no evidence of spinal or foraminal stenosis. C7-T1: There is no evidence of disc bulge or focal herniation. There is no evidence of spinal or foraminal stenosis. IMPRESSION: 1. No intrinsic cord abnormalities identified 2. No pathologically enhancing masses 3. 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 Multilevel spondylitic changes. Bilateral foraminal narrowing the C5-6 level, and right-sided foraminal narrowing the C3-4, and C4-5 levels. Electronically signed by: Deon Araiza M.D. 12/10/2016 10:42 PM Dictated Date/Time: 12/10/2016 10:38 PM
[2016-12-10] MEDS ORDERED: GADAVIST IV PRN (22:45)
--- NOTE | 2016-12-10 22:53 | DIAGNOSTIC IMAGING REPORT ---
MRI LUMBAR SPINE COMBINATION CLINICAL HISTORY: Severe right lower extremity pain and weakness TECHNIQUE: Sagittal and axial T1, T2 and STIR images were obtained. Imaging was performed before and after administration of 8 cc of intravenous Gadavist COMPARISON STUDY: No previous studies for comparison. OBSERVATIONS: The vertebral bodies and posterior elements appear intact. There is no abnormal bony signal present to suggest a marrow replacement process. L1-2: There is a prominent inferior endplate L1 Schmorl's node. There is a minor circumferential disc bulge. There is no significant spinal or foraminal stenosis L2-3: There is a circumferential disc bulge. There is slight flattening of the anterior thecal sac. Significant spinal stenosis is not felt to be present. There is no significant foraminal narrowing L3-4: There is a circumferential disc bulge present. There is no significant spinal or foraminal stenosis. L4-5: There is a circumferential disc bulge. There is mild spinal stenosis. There is minor right-sided foraminal narrowing. L5-S1: There is a circumferential disc bulge present. There is moderate left-sided foraminal narrowing The conus medullaris and cauda equina appear normal. There are no pathologically enhancing lesions. IMPRESSION: 1. No pathologic masses identified 2. Multilevel spondylitic changes with multilevel disc bulges. Mild spinal stenosis at the L4-5 level. Electronically signed by: Deon Araiza M.D. 12/10/2016 10:50 PM Dictated Date/Time: 12/10/2016 10:47 PM
[2016-12-11 03:44] VITALS: BP 127/70; PULSE 75; TEMP 37.1; O2SAT 93
[2016-12-11 06:40] LABS: BASO % 0.3 %; BASO ABS # 0.03 K/uL (0-0.2); COMPLETE YES; EOS % 4.9 %; HEMATOCRIT 44.8 % (42-52); IG% 0.2 %; LYMPH ABS # 1.69 K/uL (1.2-3.4); MEAN CELL VOLUME 87.5 fL (80-100); MEAN CORPUSCULAR HEMOGLOBIN 30.5 pg (25-34); MEAN CORPUSCULAR HGB CONC 34.8 g/dl (32-36); MEAN PLATELET VOLUME 9.7 fL (7.4-10.4); MONO % 7.2 %; NEUT % 69.4 %; PLATELET COUNT 215 K/uL (130-400); RED BLOOD COUNT 5.12 M/uL (4.7-6.1); WHITE BLOOD COUNT 9.41 K/uL (4.8-10.8)
[2016-12-11 07:10] LABS: BUN/CREATININE RATIO 11.2 (10-20); CALCIUM 8.8 mg/dl (8.5-10.1); CREATININE 1.4 mg/dl (0.60-1.40)
[2016-12-11 07:36] VITALS: BP 147/80; PULSE 75; TEMP 36.4; O2SAT 92
[2016-12-11] MEDS: AMLODIPINE BESYLATE 5 MG TAB PO SCH (07:38)
[2016-12-11] MEDS: DOCUSATE SODIUM/SENNA 50/8.6MG TAB PO SCH (07:38)
[2016-12-11] MEDS: CLOPIDOGREL BISULFATE 75 MG TAB PO SCH (07:38)
[2016-12-11] MEDS: TAMSULOSIN HCL 0.4 MG CAP PO SCH (07:38)
[2016-12-11] MEDS: ATORVASTATIN 40 MG TAB PO SCH (07:39)
[2016-12-11] MEDS: HEPARIN SOD 5000 UNIT/0.5 ML CARP SQ SCH (07:41)
[2016-12-11 08:00] VITALS: O2SAT 95
--- NOTE | 2016-12-11 08:37 | Neurology Progress Notes ---
Neurology Progress Note Date of Service Dec 11, 2016. Subjective The patient does express that he continues to have pain in his right shoulder and lower back and lower extremity. Patient intermittently still gets numbness in his first through third finger on the right hand. Still has some weakness of the right arm and leg but feels that it is improved compared to yesterday. No new neurological symptoms. MRI of the C-spine and L-spine report and images were reviewed by myself. Patient does have multilevel spondylitic changes and narrowing. No cord signal changes or cord impingement/compromise. Objective Date Time Temp Pulse Resp B/P Pulse Ox O2 Delivery O2 Flow Rate FiO2 12/11/16 08:00 95 Room Air 12/11/16 07:36 36.4 75 20 147/80 92 Room Air 12/11/16 04:00 Room Air 12/11/16 03:44 37.1 75 18 127/70 93 Room Air 12/11/16 00:02 Room Air 12/10/16 23:45 36.9 82 18 148/79 95 Room Air 12/10/16 20:00 Room Air 12/10/16 19:32 36.7 78 18 142/78 95 Room Air 12/10/16 16:05 36.6 77 18 149/76 93 Room Air 12/10/16 16:00 Room Air 12/10/16 12:07 36.5 86 20 153/90 94 Room Air 12/10/16 12:00 95 Room Air Last 24 Hours Test 12/11/16 06:29 White Blood Count 9.41 K/uL Red Blood Count 5.12 M/uL Hemoglobin 15.6 g/dL Hematocrit 44.8 % Mean Corpuscular Volume 87.5 fL Mean Corpuscular Hemoglobin 30.5 pg Mean Corpuscular Hemoglobin Concent 34.8 g/dl Platelet Count 215 K/uL Mean Platelet Volume 9.7 fL Neutrophils (%) (Auto) 69.4 % Lymphocytes (%) (Auto) 18.0 % Monocytes (%) (Auto) 7.2 % Eosinophils (%) (Auto) 4.9 % Basophils (%) (Auto) 0.3 % Neutrophils # (Auto) 6.53 K/uL Lymphocytes # (Auto) 1.69 K/uL Monocytes # (Auto) 0.68 K/uL Eosinophils # (Auto) 0.46 K/uL Basophils # (Auto) 0.03 K/uL RDW Standard Deviation 45.3 fL RDW Coefficient of Variation 14.0 % Immature Granulocyte % (Auto) 0.2 % Immature Granulocyte # (Auto) 0.02 K/uL Sodium Level 138 mmol/L Potassium Level 4.0 mmol/L Chloride Level 105 mmol/L Carbon Dioxide Level 24 mmol/L Anion Gap 9.0 mmol/L Blood Urea Nitrogen 16 mg/dl Creatinine 1.40 mg/dl Est Creatinine Clear Calc Drug Dose 41.6 ml/min Estimated GFR () 53.8 Estimated GFR (Non- 46.5 BUN/Creatinine Ratio 11.2 Random Glucose 159 mg/dl Calcium Level 8.8 mg/dl Exam: Gen.: Patient is alert and oriented in no acute distress, sitting in chair Extremities: No gross deformities or rashes noted Neurological examination: Mental status: Patient is alert and oriented to person place and time. Able to give his own history. Attention concentration normal for the situation. Speech is fluent without any dysarthria or aphasia noted Cranial nerves: No facial asymmetry noted. Hearing grossly intact voice ( hearing aids in place). Strength: 5/5 both proximal and distal in left upper and lower extremity. Deltoid on the right 5/5. patient has right shoulder pain to passive movement of the shoulder. Right bicep was 5/5. Finger extension 5-/5. 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 Right hip flexion 3/5, right knee extension 4/5, foot dorsiflexion 5/5, and right foot plantar flexion 5/5. Sensation: Grossly intact to light touch in all extremities with the exception of decreased sensation in the right anterior thigh and right median distribution of the palm. Deep tendon reflexes: +1 in bilateral, biceps and patellar with the exception of +2 in the right patellar. Station within the chair is normal. Current Inpatient Medications Medications (Trade) Dose Ordered Sig/Georgina Route Start Time Stop Time Status Last Admin Dose Admin Heparin Sodium (Porcine) (Heparin Sq 5000 Unit/0.5ml) 5,000 unit Q12 SQ 12/09/16 21:00 01/08/17 20:59 12/11/16 07:41 5,000 UNIT Acetaminophen (Tylenol Tab) 650 mg Q4H PRN PO 12/09/16 16:15 01/08/17 16:14 4/5/17 17:15 650 MG Al Hydrox/Mg Hydrox/Simethicone (Maalox Max Susp) 15 ml Q4H PRN PO 12/09/16 16:15 01/08/17 16:14 Magnesium Hydroxide (Milk Of Magnesia Susp) 30 ml Q12H PRN PO 12/09/16 16:15 01/08/17 16:14 Ondansetron HCl (Zofran Inj) 4 mg Q6H PRN IV 12/09/16 16:15 01/08/17 16:14 Nitroglycerin (Nitrostat Tab) 0.4 mg UD PRN SL 12/09/16 16:15 01/08/17 16:14 Polyethylene (Miralax Powder Packet) 17 gm DAILY PRN PO 12/09/16 16:15 01/08/17 16:14 Atorvastatin Calcium (Lipitor Tab) 40 mg QAM PO 12/10/16 09:00 01/09/17 08:59 12/11/16 07:39 40 MG Clopidogrel Bisulfate (plAVix TAB) 75 mg QAM PO 12/10/16 09:00 01/09/17 08:59 12/11/16 07:38 75 MG Miscellaneous Information (Pharmacist Discharge Med Rec Consult) 1 ea UD PRN N/A 12/09/16 16:15 01/08/17 16:14 Hydralazine HCl (HydrALAZINE INJ) 10 mg Q6H PRN IV. 12/09/16 16:15 01/08/17 16:14 12/09/16 17:14 10 MG Amlodipine Besylate (Norvasc Tab) 5 mg DAILY PO 12/10/16 09:00 01/09/17 08:59 12/11/16 07:38 5 MG Diclofenac Sodium (Voltaren 1% Top Gel) 1 appln QID PRN EXT 12/09/16 16:15 01/08/17 16:14 12/11/16 06:22 1 APPLN Senna/Docusate Sodium (Senokot S Tab) 1 tab DAILY PO 12/10/16 09:00 01/09/17 08:59 12/11/16 07:38 1 TAB Tamsulosin HCl (Flomax Cap) 0.4 mg DAILY PO 12/10/16 09:00 01/09/17 08:59 12/11/16 07:38 0.4 MG Miscellaneous (Iv Fluids Completed) 1 ea PRN PRN N/A 12/09/16 18:30 12/09/17 18:29 Gadobutrol (Gadavist) 9 mmol UD PRN IV 12/09/16 22:00 12/13/16 21:59 Gadobutrol (Gadavist) 8 mmol UD PRN IV 12/10/16 22:45 12/14/16 22:44 Impression This is an 81-year-old right-handed male with acute onset (possibly acute on chronic) weakness of right upper extremity weakness, along with more chronic right lower extremity weakness that has been worsening over the last week. Patient does have some significant right shoulder pain with passive motion, likely indicating some component of intrinsic shoulder dysfunction contributing to his weakness (like a rotator cuff tear). 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 May have a peripheral median neuropathy versus cervical radiculopathy. Right lower extremity weakness appears to be more chronic and likely secondary to a upper to mid lumbar radiculopathy. Not sure that there was ever a clear right facial droop. Slurred speech is nonspecific and could of occurred in the setting of anxiety. Overall it is not clear to me that the patient has had a stroke or TIA, it seems that he may have had more acute on chronic worsening of right arm weakness with chronic right lower extremity weakness. Plan No additional neurological recommendations at this time. I will contact our clinic to schedule an outpatient EMG of the right upper and lower extremity with a neurology follow-up afterwards. Otherwise recommend that the patient follow-up with orthopedics as an outpatient. In terms of the Plavix, the patient does have some vascular risk factors, and it would not be unreasonable to continue the Plavix for MN and CVA prevention, although I do not feel strongly about it at this time. Follow-up PT/OT recommendations for discharge planning Thank you for allowing me to participate in this patient's care. If there is any questions or concerns, feel free to call/page me
[2016-12-11] MEDS ORDERED: TRAM-453 PO (11:19)
--- NOTE | 2016-12-11 11:27 | Discharge Instructions ---
Discharge Instructions Date of Service Dec 11, 2016. Admission Reason for Admission: TIA Discharge Discharge Diagnosis / Problem: R sided weakness, Discharge Goals Goal(s): Improve function, Diagnostic testing Activity Recommendations Activity Limitations: as noted below Exercise/Sports Limitations: as tolerated . Instructions / Follow-Up Instructions / Follow-Up You have been treated in the hospital for right arm and right leg weakness. It was concerning that you may have been having a stroke. An extensive workup was performed. There are no signs of a stroke. It is believed that the weakness is probably being caused by orthopedic problems. The following changes/additions have been made to your medication list: -Ultram 50 mg 1 tab by mouth as needed for pain. Please do not drivable taking this medication as it may make you drowsy. Please follow-up with [facility] as scheduled Please also follow up with Dr. Carter from [facility] neurology. An appointment is being made for you. It is also important for you to follow up with her primary care physician within the next week Call your doctor or return to the emergency department if you have any of the following symptoms: -Fever of 101F or greater -Persistent vomiting - Persistent diarrhea -Lethargy -Chest pain -Shortness of breath -severe dizziness -weakness on one side of your body -slurred speech -severe headache Current Hospital Diet Patient's current hospital diet: AHA Diet (Heart Healthy) Discharge Diet Recommended Diet: Regular Diet Procedures Procedures Performed: echo The left ventricle is normal in size. There is no thrombus. There is normal left ventricular wall thickness. A full diastolic examination was done with clinical findings of Class I diastolic dysfunction. The left ventricle is hyperdynamic. Ejection Fraction = >70 %. No regional wall motion abnormalities noted. MRI brain IMPRESSION: 1. No acute intracranial findings. 2. No intracranial mass or pathologic enhancement. 3. Moderate atrophy and mild small vessel disease. MRI lumbar spine IMPRESSION: 1. No pathologic masses identified 2. Multilevel spondylitic changes with multilevel disc bulges. Mild spinal stenosis at the L4-5 level MRI c spine IMPRESSION: 1. No intrinsic cord abnormalities identified 2. No pathologically enhancing masses 3. 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 Multilevel spondylitic changes. Bilateral foraminal narrowing the C5-6 level, and right-sided foraminal narrowing the C3-4, and C4-5 levels. Pending Studies Studies pending at discharge: no Laboratory Results 12/11/16 06:29 Red Blood Count 5.12, Mean Corpuscular Volume 87.5, Mean Corpuscular Hemoglobin 30.5, Mean Corpuscular Hemoglobin Concent 34.8, Mean Platelet Volume 9.7, Neutrophils (%) (Auto) 69.4, Lymphocytes (%) (Auto) 18.0, Monocytes (%) (Auto) 7.2, Eosinophils (%) (Auto) 4.9, Basophils (%) (Auto) 0.3, Neutrophils # (Auto) 6.53, Lymphocytes # (Auto) 1.69, Monocytes # (Auto) 0.68, Eosinophils # (Auto) 0.46, Basophils # (Auto) 0.03 12/11/16 06:29 Test 12/11/16 06:29 White Blood Count 9.41 K/uL (4.8-10.8) Red Blood Count 5.12 M/uL (4.7-6.1) Hemoglobin 15.6 g/dL (14.0-18.0) Hematocrit 44.8 % (42-52) Mean Corpuscular Volume 87.5 fL (80-100) Mean Corpuscular Hemoglobin 30.5 pg (25-34) Mean Corpuscular Hemoglobin Concent 34.8 g/dl (32-36) Platelet Count 215 K/uL (130-400) Mean Platelet Volume 9.7 fL (7.4-10.4) Neutrophils (%) (Auto) 69.4 % Lymphocytes (%) (Auto) 18.0 % Monocytes (%) (Auto) 7.2 % Eosinophils (%) (Auto) 4.9 % Basophils (%) (Auto) 0.3 % Neutrophils # (Auto) 6.53 K/uL (1.4-6.5) Lymphocytes # (Auto) 1.69 K/uL (1.2-3.4) Monocytes # (Auto) 0.68 K/uL (0.11-0.59) Eosinophils # (Auto) 0.46 K/uL (0-0.5) Basophils # (Auto) 0.03 K/uL (0-0.2) RDW Standard Deviation 45.3 fL (36.4-46.3) RDW Coefficient of Variation 14.0 % (11.5-14.5) Immature Granulocyte % (Auto) 0.2 % Immature Granulocyte # (Auto) 0.02 K/uL (0.00-0.02) Anion Gap 9.0 mmol/L (3-11) Est Creatinine Clear Calc Drug Dose 41.6 ml/min Estimated GFR () 53.8 Estimated GFR (Non- 46.5 BUN/Creatinine Ratio 11.2 (10-20) Calcium Level 8.8 mg/dl (8.5-10.1) Hemoglobin A1c Test 12/10/16 06:50 Range/Units Estimated Average Glucose 154 mg/dl Hemoglobin A1c 7.0 H 4.5-5.6 % Lipid Panel Test 12/10/16 06:50 Range/Units Triglycerides Level 124 0-150 mg/dl Cholesterol Level 157 0-200 mg/dl HDL Cholesterol 42 mg/dl Cholesterol/HDL Ratio 3.7 LDL Cholesterol, Calculated 90 mg/dl Medical Emergencies . Who to Call and When: Medical Emergencies: If at any time you feel your situation is an emergency, please call 911 immediately. . Non-Emergent Contact Non-Emergency issues call your: Primary Care Provider . . "Provider Documentation" section prepared by Regina Sevilla. VTE Core Measure Inpt VTE Proph given/why not?: Unfractionated heparin SQ, T.E.D. Stockings, SCD 's
[2016-12-11 11:32] VITALS: BP 147/80; PULSE 75; TEMP 36.4; O2SAT 95
--- NOTE | 2016-12-11 11:41 | Discharge Summary ---
Discharge Summary Date of Service Dec 11, 2016. (Regina Sevilla PA-C) Discharge Summary Admission Date: Dec 10, 2016 at 15:37 Discharge Date: Dec 11, 2016 Discharge Disposition: Home Principal Diagnosis: right-sided weakness, questionable slurred speech Problems/Secondary Diagnoses: Degenerative disc disease BPH Hypertension Procedures: echo The left ventricle is normal in size. There is no thrombus. There is normal left ventricular wall thickness. A full diastolic examination was done with clinical findings of Class I diastolic dysfunction. The left ventricle is hyperdynamic. Ejection Fraction = >70 %. No regional wall motion abnormalities noted. MRI brain IMPRESSION: 1. No acute intracranial findings. 2. No intracranial mass or pathologic enhancement. 3. Moderate atrophy and mild small vessel disease. MRI lumbar spine IMPRESSION: 1. No pathologic masses identified 2. Multilevel spondylitic changes with multilevel disc bulges. Mild spinal stenosis at the L4-5 level MRI c spine IMPRESSION: 1. No intrinsic cord abnormalities identified 2. No pathologically enhancing masses 3. 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 Multilevel spondylitic changes. Bilateral foraminal narrowing the C5-6 level, and right-sided foraminal narrowing the C3-4, and C4-5 levels. Consultations: Neurology (Regina Sevilla PA-C) Medication Reconciliation New Medications: Tramadol Hcl (Ultram) 50 Mg Tab 50 MG PO Q4H for Pain for 3 Days, #24 TAB PRN PAIN Continued Medications: Amlodipine Besylate (Norvasc) 5 Mg Tab 5 MG PO DAILY, TAB Diclofenac Sodium (Topical) (Voltaren 1% Top Gel) 1 % Gel 1 APPLN TOP Sennosides-Docusate Sodium (Stool Softener) 1 Tab Tab 1 TAB PO PRN Tamsulosin Hcl (Flomax) 0.4 Mg Cap 0.4 MG PO, CAP Referrals At Discharge Follow up Referrals: Neurologist Referral - Within 2 Weeks with Eloina Das D.O. Physician Referral - Within 2 Weeks with Juan C Cunningham D.O. Physician Referral - Within 1 Week with Major Chen M.D. Discharge Exam The patient reports feeling well today. Still complaining of fairly significant right sided knee pain. Voltaren gel is helping. He thinks that his weakness is improved. Denies any slurred speech, headache or changes in vision. No chest pain or pressure. No shortness of breath, fever or chills overnight. Review of Systems: Constitutional: No fever Respiratory: No shortness of breath Cardiovascular: No chest pain Abdomen: No nausea Musculoskeletal: + joint pain Physical Exam: General Appearance: no apparent distress Eyes: EOMI Neck: no JVD Respiratory/Chest: lungs clear Cardiovascular: regular rate, rhythm, + systolic murmur Abdomen / GI: normal bowel sounds, non tender, soft Extremities: no calf tenderness, no pedal edema, + pertinent finding (pain with flexion and extension of the right knee. Pain with passive and active range of motion with the right shoulder.) Neurologic/Psychiatric: oriented x 3, + pertinent finding (summary weakness still noted with the right hand field care coordinator. Overall improved.) Skin: warm/dry (Regina Sevilla PA-C) Hospital Course 81-year-old male presents to the emergency department with complaints of right- sided weakness and possible slurred speech that started on the morning of 12/09. Right-sided weakness-likely more related to musculoskeletal problems as opposed to a centralized neurologic problem -Initially started on aspirin and Plavix -MRI negative for acute findings -Echo shows a preserved EF of greater than 70%. No regional wall motion abnormalities noted. No significant valvular disease -Carotid ultrasound negative for significant stenosis -Neurology consult-recommended MRI of the cervical and lumbar spine. Reviewed. Some degenerative disc disease noted. There is some foraminal narrowing particularly at C3-C4 and C4-C5. This could be contributing to some of his right upper extremity weakness. -On exam, the patient also is noted to have deficits on the right shoulder. Possible rotator cuff injury. Will need orthopedic follow-up -Right lower extremity weakness seems to be secondary to significant right knee pain. He will also need orthopedic follow-up for this -The patient will follow-up with neurology for EMG studies of the right upper and lower extremities -Hold off on aspirin and Plavix for now as the patient does not have a clear- cut stroke or TIA -Patient given a prescription for Ultram 50 mg every 4 hours as needed for pain. He can use this in addition to Voltaren gel to his knee for pain. HTN -Continue Norvasc 5 mg daily BPH -Continue Flomax daily DVT prophylaxis -Heparin 5000 u subQ BID -TEDS, SCDs CODE STATUS -LEVEL V DO NO RESUSCITATE Total Time Spent: Greater than 30 minutes This includes examination of the patient, discharge planning, medication reconciliation, and communication with other providers. (Regina Sevilla PA-C) I agree with PA assessment and plan VSS Labs reviewed Slight improvement in LE weakness MRI unremarkable Appreciate neurology recs Stable for discharge, will require EMG as OP (Cayden Ruffin D.O.) Discharge Instructions Please refer to the electronic Patient Visit Report (Discharge Instructions) for additional information. (Regina Sevilla PA-C) Follow-Up PCP 1 week Orthopedics in 2 weeks Neurology in 2 weeks (Regina Sevilla PA-C) Additional Copies To Juan C Cunningham D.O.; Eloina Das D.O.; Major Chen M.D.
== END 2016-12-11 12:09 | disposition home or self-care (01) | DRG 948 ==
LOC: ENRESERVDT → ENRESERVTM → C.EDB 14:15 → C.2T 16:28 → OBSVTOIN 12-10 15:37
PROVIDERS: ADMIT Internal Medicine; ATTEND Hospitalist
DX: R53.1 Weakness (principal); I25.10 Atherosclerotic heart disease of native coronary artery without angina pectoris; I10 Essential (primary) hypertension; Z87.11 Personal history of peptic ulcer disease; N40.0 Benign prostatic hyperplasia without lower urinary tract symptoms; Z87.891 Personal history of nicotine dependence; Z88.2 Allergy status to sulfonamides; Z66 Do not resuscitate; Z83.3 Family history of diabetes mellitus; Z80.9 Family history of malignant neoplasm, unspecified; Z82.49 Family history of ischemic heart disease and other diseases of the circulatory system; R29.810 Facial weakness; F41.9 Anxiety disorder, unspecified; M48.02 Spinal stenosis, cervical region; M48.06 Spinal stenosis, lumbar region

== ENCOUNTER → 2017-01-11 | Outpatient (CLI) | payer OTHER ==
[~2017-01-11] MED LIST: AMLO5TAB2 PO; ANTICRE6 PO; DICL1GEL12 TOP; GLC500 PO; PRLSR20 PO; RPF/8 PO; SENNTAB23 PO; TAMS0.4C38 PO
[2017-01-11 17:33] LABS: BASO % 0.4 %; BASO ABS # 0.05 K/uL (0-0.2); COMPLETE YES; EOS % 1.4 %; HEMATOCRIT 46.4 % (42-52); IG% 0.3 %; LYMPH % 15.9 %; LYMPH ABS # 1.86 K/uL (1.2-3.4); MEAN CELL VOLUME 91.3 fL (80-100); MEAN CORPUSCULAR HEMOGLOBIN 30.1 pg (25-34); MEAN PLATELET VOLUME 9.9 fL (7.4-10.4); MONO % 10.1 %; NEUT % 71.9 %; PLATELET COUNT 225 K/uL (130-400); RED BLOOD COUNT 5.08 M/uL (4.7-6.1); WHITE BLOOD COUNT 11.73 K/uL (4.8-10.8)
[2017-01-11 17:43] LABS: ALT/SGPT 40 U/L (12-78); AST/SGOT 15 U/L (15-37); BLOOD UREA NITROGEN 21 mg/dl (7-18); CALCIUM 8.8 mg/dl (8.5-10.1); CARBON DIOXIDE 28 mmol/L (21-32); CHLORIDE 104 mmol/L (98-107); GLUCOSE 147 mg/dl (70-99); POTASSIUM 4.2 mmol/L (3.5-5.1); SODIUM 138 mmol/L (136-145)
[2017-01-11 17:46] LABS: ALB/GLOB RATIO 0.9 (0.9-2); ALKALINE PHOSPHATASE 85 U/L (45-117)
== END | disposition home or self-care (01) ==
LOC: C.LABBFT 10:10
PROVIDERS: ATTEND Physician Assistant Medical
DX: R10.9 Unspecified abdominal pain (principal)

== ENCOUNTER → 2017-01-12 | Outpatient (CLI) | payer OTHER ==
[2017-01-21 16:43] LABS: O&P SOURCE OTHER
== END | disposition home or self-care (01) ==
LOC: C.LABSPEC 12:14
PROVIDERS: ATTEND Physician Assistant Medical
DX: R19.7 Diarrhea, unspecified (principal); R10.9 Unspecified abdominal pain

== ENCOUNTER → 2017-01-20 | Outpatient (CLI) | payer OTHER ==
--- NOTE | 2017-01-20 14:31 | DIAGNOSTIC IMAGING REPORT ---
CT SCAN OF THE ABDOMEN AND PELVIS WITHOUT CONTRAST CLINICAL HISTORY: Diarrhea, lower abdominal pain. History of stomach ulcer. COMPARISON STUDY: No previous studies for comparison. TECHNIQUE: CT scan of the abdomen and pelvis was performed from the lung bases to the proximal femurs. Images are reviewed in the axial, sagittal, and coronal planes. IV contrast was not administered for this examination. CT DOSE: 518.88 mGy.cm FINDINGS: Lower chest: There are mild dependent atelectatic changes. Liver: The unenhanced liver is normal in size, contour, and attenuation. There is no intrahepatic biliary ductal dilatation. Gallbladder: Unremarkable. Spleen: Normal in size and attenuation. Pancreas: There is mild fatty atrophy. No masses are visualized. Adrenal glands: Unremarkable. Kidneys: No renal, ureteral, or bladder calculi are visualized. Bowel: There are no transition zones indicate bowel obstruction. The appendix appears normal. There is no acute diverticulitis. Peritoneum: There is no intraperitoneal free air or abdominal ascites. Vasculature: The abdominal aorta is normal in course and caliber. Adenopathy: None. Pelvic viscera: There is mild prostate enlargement. Skeletal structures: No destructive osseous lesions are seen. IMPRESSION: 1. No acute findings 2. No evidence of bowel obstruction. No evidence of free air 3. Normal appendix 4. No evidence of acute diverticulitis 5. No renal, ureteral, or bladder calculi identified. Electronically signed by: Deon Araiza M.D. 01/20/2017 2:30 PM Dictated Date/Time: 01/20/2017 2:26 PM
== END | disposition home or self-care (01) ==
LOC: C.CTS 13:43
PROVIDERS: ATTEND Physician Assistant Medical
DX: R10.9 Unspecified abdominal pain (principal); R19.7 Diarrhea, unspecified

== ENCOUNTER → 2017-01-25 | Outpatient (CLI) | payer OTHER ==
[2017-01-25 17:28] LABS: BASO % 0.4 %; BASO ABS # 0.04 K/uL (0-0.2); COMPLETE YES; EOS % 2.2 %; HEMATOCRIT 44.8 % (42-52); IG% 0.3 %; LYMPH % 19.1 %; LYMPH ABS # 1.85 K/uL (1.2-3.4); MEAN CELL VOLUME 91.6 fL (80-100); MEAN CORPUSCULAR HEMOGLOBIN 31.5 pg (25-34); MEAN CORPUSCULAR HGB CONC 34.4 g/dl (32-36); MEAN PLATELET VOLUME 10.1 fL (7.4-10.4); PLATELET COUNT 258 K/uL (130-400); RED BLOOD COUNT 4.89 M/uL (4.7-6.1); WHITE BLOOD COUNT 9.68 K/uL (4.8-10.8)
[2017-01-25 18:07] LABS: BLOOD UREA NITROGEN 21 mg/dl (7-18); BUN/CREATININE RATIO 14.1 (10-20); CALCIUM 8.6 mg/dl (8.5-10.1); CARBON DIOXIDE 28 mmol/L (21-32); CHLORIDE 105 mmol/L (98-107); GLUCOSE 153 mg/dl (70-99); POTASSIUM 4.1 mmol/L (3.5-5.1); SODIUM 140 mmol/L (136-145)
== END | disposition home or self-care (01) ==
LOC: C.LABBFT 09:56
PROVIDERS: ATTEND Nurse Practitioner
DX: R10.9 Unspecified abdominal pain (principal)

== ENCOUNTER → 2017-02-02 | Outpatient (CLI) | payer OTHER ==
[2017-02-02 18:15] LABS: BLOOD UREA NITROGEN 16 mg/dl (7-18); BUN/CREATININE RATIO 11.5 (10-20); CALCIUM 8.7 mg/dl (8.5-10.1); CARBON DIOXIDE 25 mmol/L (21-32); CHLORIDE 106 mmol/L (98-107); GLUCOSE 161 mg/dl (70-99); SODIUM 140 mmol/L (136-145)
== END | disposition home or self-care (01) ==
LOC: C.LABBFT 17:14
PROVIDERS: ATTEND Nurse Practitioner Family
DX: I10 Essential (primary) hypertension (principal); R35.1 Nocturia; N40.0 Benign prostatic hyperplasia without lower urinary tract symptoms

== ENCOUNTER → 2017-05-13 | Outpatient (CLI) | payer OTHER ==
[~2017-05-13] MED LIST changes: -ANTICRE6 PO; -GLC500 PO; -PRLSR20 PO; -RPF/8 PO
[2017-05-13 17:39] LABS: RATIO 7.4 mcg/mg (0-30.0)
[2017-05-13 18:31] LABS: ESTIMATED AVERAGE GLUCOSE 148 mg/dl; HA1C FLAG Normal (Normal)
== END | disposition home or self-care (01) ==
LOC: C.LABBFT 12:33
PROVIDERS: ATTEND Internal Medicine
DX: E11.9 Type 2 diabetes mellitus without complications (principal); I10 Essential (primary) hypertension

== ENCOUNTER 2017-06-22 18:21 | Observation (INO) | payer OTHER ==
[~2017-06-22] VITALS: Ht 167.6 cm; Wt 82.0 kg
[2017-06-22 19:20] LABS: BASO % 0.5 %; BASO ABS # 0.06 K/uL (0-0.2); COMPLETE YES; EOS % 3.2 %; HEMATOCRIT 44.2 % (42-52); IG% 0.2 %; LYMPH % 17.3 %; LYMPH ABS # 1.92 K/uL (1.2-3.4); MEAN CELL VOLUME 86.2 fL (80-100); MEAN CORPUSCULAR HEMOGLOBIN 29.8 pg (25-34); MEAN CORPUSCULAR HGB CONC 34.6 g/dl (32-36); MEAN PLATELET VOLUME 9.8 fL (7.4-10.4); MONO % 6.9 %; NEUT % 71.9 %; PLATELET COUNT 280 K/uL (130-400); RED BLOOD COUNT 5.13 M/uL (4.7-6.1); WHITE BLOOD COUNT 11.07 K/uL (4.8-10.8)
[2017-06-22 19:46] LABS: URINE APPEARANCE CLEAR (CLEAR); URINE BILIRUBIN NEG (NEG); URINE COLOR YELLOW; URINE NITRITE NEG (NEG); URINE PH 8.5 (4.5-7.5); URINE SPECIFIC GRAVITY 1.014 (1.000-1.030); UROBILINOGEN NEG (NEG)
[2017-06-22 19:49] LABS: MANUAL MICROSCOPIC REQUIRED? NO; REVIEW REQ? NO
[2017-06-22 19:58] LABS: ALB/GLOB RATIO 0.9 (0.9-2); ALKALINE PHOSPHATASE 117 U/L (45-117); ALT/SGPT 27 U/L (12-78); AST/SGOT 19 U/L (15-37); BLOOD UREA NITROGEN 15 mg/dl (7-18); BUN/CREATININE RATIO 10.8 (10-20); CALCIUM 9.2 mg/dl (8.5-10.1); CARBON DIOXIDE 22 mmol/L (21-32); CHLORIDE 102 mmol/L (98-107); CKMB/CK RATIO 1.2 (0-3.0); CREATININE 1.38 mg/dl (0.60-1.40); GLUCOSE 165 mg/dl (70-99); POTASSIUM 3.9 mmol/L (3.5-5.1); SODIUM 136 mmol/L (136-145)
--- NOTE | 2017-06-22 19:58 | DIAGNOSTIC IMAGING REPORT ---
CHEST ONE VIEW PORTABLE HISTORY: Short of breath., recent right rotator cuff repair COMPARISON: None. FINDINGS: The lungs are clear. Cardiac silhouette is normal in size. No pleural effusions. No pneumothorax. Epigastric surgical clips. IMPRESSION: No acute process. Electronically signed by: Beau Piper M.D. 06/22/2017 7:56 PM Dictated Date/Time: 06/22/2017 7:55 PM
[2017-06-22] MEDS ORDERED: RPF/8 PO (20:11)
[2017-06-22] MEDS ORDERED: PRLSR20 PO (20:12)
[2017-06-22] MEDS ORDERED: GLC500 PO (20:12)
[2017-06-22] MEDS ORDERED: ANTICRE6 PO (20:14)
[2017-06-22] MEDS ORDERED: OPTIRAY 320 IV PRN (21:30)
--- NOTE | 2017-06-22 21:30 | DIAGNOSTIC IMAGING REPORT ---
CHEST CTA for PULMONARY ARTERIES CT DOSE: 626.28 mGy.cm HISTORY: Short of breath. TECHNIQUE: Multiaxial CT images of the chest were performed following the intravenous administration of contrast to evaluate the pulmonary arteries. Maximal intensity projection images were also obtained. A dose lowering technique was utilized adhering to the principles of ALARA. COMPARISON STUDY: None. FINDINGS: There is a normal caliber thoracic aorta with no evidence for dissection. There is no evidence for pulmonary embolus. No pleural effusions. No pneumothorax. The liver and spleen are unremarkable. No mediastinal or hilar lymphadenopathy. The central airways are patent. The lungs are clear. Epigastric surgical clips. Mild soft tissue edema within the right shoulder consistent with the recent postoperative change. IMPRESSION: No evidence for pulmonary embolus. Electronically signed by: Beau Piper M.D. 06/22/2017 9:29 PM Dictated Date/Time: 06/22/2017 9:20 PM
[2017-06-22] MEDS ORDERED: MAGNESIUM HYDROXIDE SUSP 30 ML UDC PO PRN (23:30)
[2017-06-22] MEDS ORDERED: ALUMINUM/MAGNESIUM/SIMETH (MAALOX MAX) 30 ML UDC PO PRN (23:30)
[2017-06-22] MEDS ORDERED: POLYETHYLENE (MIRALAX) 17 GM PACK PO PRN (23:30)
[2017-06-22] MEDS ORDERED: ONDANSETRON INJ 2 MG/ML 2 ML VIAL IV PRN (23:30)
[2017-06-22] MEDS ORDERED: ACETAMINOPHEN 325 MG TAB PO PRN (23:30)
--- NOTE | 2017-06-22 23:41 | History and Physical ---
History & Physical Date & Time of Service: Jun 22, 2017 at 23:41 Chief Complaint: Labor Breathing, High Bp And Sugar Primary Care Physician: Bolivar Chavarria M.D. History of Present Illness Source: patient This is an 82 yo m with a recent right rotator cuff repair ( 2 weeks prior) that is presenting to us with progressive dyspnea. The patient states that approx a week prior he started to suffer from shortness of breath at rest. At first it was very mild however there was sudden worsening of the shortness of breath last night. He states that he does feel better sitting up however is unable to assess if it is worse laying down since he is unable to lay flat because of his shoulder surgery. He has also noticed the onset of a productive cough and sore throat as of yesterday. He notes it is productive of yellow sputum without hemoptysis. He denies any fever at home and denies any chest pain or discomfort. Assessment in the ED was unremarkable and CT did not reveal PE. He has a remote history of smoking but no diagnosis of asthma or COPD. He did have "bronchitis" last winter. No history of [place]. Past Medical/Surgical History Right rotator cuff surgery TIA HTN Family History Patient reports no known family medical history. Social History Smoking Status: Former Smoker Smokeless Tobacco Use: No Alcohol Use: none Drug Use: none Marital Status: Housing status: lives with family Occupational Status: retired Immunizations History of Influenza Vaccine: Unknown History of Tetanus Vaccine?: Unknown History of Pneumococcal: Unknown History of Hepatitis B Vaccine: Unknown Multi-Drug Resistant Organisms History of MDRO: No Allergies Coded Allergies: Sulfa Antibiotics (Verified Allergy, Severe, EDEMA, 06/22/17) Home Medications Scheduled Amlodipine Besylate (Norvasc), 5 MG PO DAILY Metformin HCl (Metformin HCl), 500 MG PO QAM Omeprazole (Prilosec), 20 MG PO DAILY Silodosin (Rapaflo), 8 MG PO DAILY [Antibiotic], 1 TAB PO BID Review of Systems Constitutional: No fever, No chills Eyes: No worsening of vision ENT: No hearing loss Respiratory: + cough, + sputum, + shortness of breath, + dyspnea on exertion, + dyspnea at rest, No wheezing Cardiovascular: No chest pain Abdomen: No pain, No nausea, No vomiting, No diarrhea, No constipation Musculoskeletal: No joint pain, No muscle pain Genitourinary - Male: No hematuria Neurologic: No weakness, No numbness/tingling, No balance problems Psychiatric: No depression symptoms Endocrine: No fatigue Integumentary: No rash Physical Exam Vital Signs Date Time Temp Pulse Resp B/P (MAP) Pulse Ox O2 Delivery O2 Flow Rate FiO2 06/22/17 22:14 73 22 141/94 96 Room Air 06/22/17 21:06 76 22 134/72 96 Room Air 06/22/17 20:06 79 26 138/78 97 Room Air 06/22/17 19:16 98 Room Air 06/22/17 19:08 83 06/22/17 19:05 98 Room Air 06/22/17 18:48 36.7 89 26 99 Room Air General Appearance: + mild distress Head: normocephalic, atraumatic Eyes: normal inspection Neck: supple Respiratory/Chest: normal breath sounds, no respiratory distress, no accessory muscle use Cardiovascular: regular rate, rhythm, no murmur, normal peripheral pulses Abdomen/GI: normal bowel sounds, non tender, soft, no organomegaly, + pertinent finding (surgical scars on abd noted) Back: normal inspection, no CVA tenderness Extremities/Musculoskelatal: normal inspection, no calf tenderness, no pedal edema, + pertinent finding (right arm sling noted) Neurologic/Psych: alert, normal mood/affect, oriented x 3 Skin: normal color, warm/dry, no rash Lymphatic: no adenopathy Diagnostics Laboratory Results Results Past 24 Hours Test 06/22/17 19:05 06/22/17 19:30 Range/Units White Blood Count 11.07 4.8-10.8 K/uL Red Blood Count 5.13 4.7-6.1 M/uL Hemoglobin 15.3 14.0-18.0 g/dL Hematocrit 44.2 42-52 % Mean Corpuscular Volume 86.2 80-100 fL Mean Corpuscular Hemoglobin 29.8 25-34 pg Mean Corpuscular Hemoglobin Concent 34.6 32-36 g/dl Platelet Count 280 130-400 K/uL Mean Platelet Volume 9.8 7.4-10.4 fL Neutrophils (%) (Auto) 71.9 % Lymphocytes (%) (Auto) 17.3 % Monocytes (%) (Auto) 6.9 % Eosinophils (%) (Auto) 3.2 % Basophils (%) (Auto) 0.5 % Neutrophils # (Auto) 7.96 1.4-6.5 K/uL Lymphocytes # (Auto) 1.92 1.2-3.4 K/uL Monocytes # (Auto) 0.76 0.11-0.59 K/uL Eosinophils # (Auto) 0.35 0-0.5 K/uL Basophils # (Auto) 0.06 0-0.2 K/uL RDW Standard Deviation 43.5 36.4-46.3 fL RDW Coefficient of Variation 13.9 11.5-14.5 % Immature Granulocyte % (Auto) 0.2 % Immature Granulocyte # (Auto) 0.02 0.00-0.02 K/uL Sodium Level 136 136-145 mmol/L Potassium Level 3.9 3.5-5.1 mmol/L Chloride Level 102 98-107 mmol/L Carbon Dioxide Level 22 21-32 mmol/L Anion Gap 12.0 3-11 mmol/L Blood Urea Nitrogen 15 7-18 mg/dl Creatinine 1.38 0.60-1.40 mg/dl Est Creatinine Clear Calc Drug Dose 40.8 ml/min Estimated GFR () 54.4 Estimated GFR (Non- 46.9 BUN/Creatinine Ratio 10.8 10-20 Random Glucose 165 70-99 mg/dl Calcium Level 9.2 8.5-10.1 mg/dl Total Bilirubin 0.5 0.2-1 mg/dl Aspartate Amino Transf (AST/SGOT) 19 15-37 U/L Alanine Aminotransferase (ALT/SGPT) 27 12-78 U/L Alkaline Phosphatase 117 45-117 U/L Total Creatine Kinase 155 39-308 U/L Creatine Kinase MB 1.9 0.5-3.6 ng/ml Creatine Kinase MB Ratio 1.2 0-3.0 Troponin I < 0.015 0-0.045 ng/ml Pro-B-Type Natriuretic Peptide 117 0-1800 pg/ml Total Protein 7.9 6.4-8.2 gm/dl Albumin 3.7 3.4-5.0 gm/dl Globulin 4.2 2.5-4.0 gm/dl Albumin/Globulin Ratio 0.9 0.9-2 Chemistry Specimen Hemolysis Urine Color YELLOW Urine Appearance CLEAR CLEAR Urine pH 8.5 4.5-7.5 Urine Specific [place] 1.014 1.000-1.030 Urine Protein NEG NEG Urine Glucose (UA) NEG NEG Urine Ketones NEG NEG Urine Occult Blood NEG NEG Urine Nitrite NEG NEG Urine Bilirubin NEG NEG Urine Urobilinogen NEG NEG Urine Leukocyte Esterase NEG NEG Diagnostic Radiology [~ rep ct add3]] CHEST CTA for PULMONARY ARTERIES CT DOSE: 626.28 mGy.cm HISTORY: Short of breath. TECHNIQUE: Multiaxial CT images of the chest were performed following the intravenous administration of contrast to evaluate the pulmonary arteries. Maximal intensity projection images were also obtained. A dose lowering technique was utilized adhering to the principles of ALARA. COMPARISON STUDY: None. FINDINGS: There is a normal caliber thoracic aorta with no evidence for dissection. There is no evidence for pulmonary embolus. No pleural effusions. No pneumothorax. The liver and spleen are unremarkable. No mediastinal or hilar lymphadenopathy. The central airways are patent. The lungs are clear. Epigastric surgical clips. Mild soft tissue edema within the right shoulder consistent with the recent postoperative change. IMPRESSION: No evidence for pulmonary embolus. CHEST ONE VIEW PORTABLE HISTORY: Short of breath., recent right rotator cuff repair COMPARISON: None. FINDINGS: The lungs are clear. Cardiac silhouette is normal in size. No pleural effusions. No pneumothorax. Epigastric surgical clips. IMPRESSION: No acute process. EKG Normal sinus rhythm Left axis deviation Minimal voltage criteria for LVH, may be normal variant Cannot rule out Anterior infarct , age undetermined Abnormal ECG When compared with ECG of 09-DEC-2016 14:54, Premature supraventricular complexes are no longer Present Impression Assessment and Plan This is an 82 yo m suffering from progressive dyspnea. It is reassuring that the patient's troponin is negative with onset of SOB essentially being a week prior and worsening > 12 hours prior to troponin draw. PE study was also negative and no significant congestion on the CXR noted. Patient does have a remote history of smoking and could be suffering from a COPD exacerbation vs URI. Dyspnea at rest; possible COPD exacerbation vs CHF vs URI - medsurg admission as hemodynamically stable - xopenex/ atovent q6h - will defer abx for now and check procal as no leukocytosis - sputum culture and gram stain - echo in am - incentive lobo DMII - metformin held - insulin ISS with BSG AC HS HTN - amlodipine 5 mg BPH - continue Rapaflo DVT Prophylaxis Heparin bid Attending Addendum: I have physically seen and examined this patient, have directed the resident's medical activities, and agree with the H&P as noted above with the following exceptions as noted. The patient is awake, alert and oriented 3, well-developed and well-nourished , normocephalic and atraumatic, looks fatigued, lying in bed and in no acute distress. HEENT--PERRL, EOMI, mucous membranes and oropharynx dry. Neck--supple, no JVD or bruits, thyroid normal, trachea midline, no adenopathy. Heart--normal S1 and S2, no extra beats, no murmurs, rubs or gallops. Lungs--few coarse breath sounds bilaterally, no respiratory distress, no accessory muscle use. Abdomen--normal bowel sounds and soft, nontender and nondistended, no hernias or masses, no organomegaly. Extremities--no cyanosis, clubbing or edema. There are good distal pulses b/l. Dermatologic--scars noted on abdomen Neurologic--cranial nerves II through XII grossly intact. Rheumatologic--right arm in sling Psychiatric--normal affect. 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 Likely aggravated by recent surgery and recent barometric pressure change or cold weather coming into the area. Sputum Gram stain and culture. No active signs of infection to this time, therefore no antibiotics. Diabetes mellitus-- Hold metformin Place on Accu-Cheks before meals and at bedtime with NovoLog coverage per scale. Hypertension-- continue amlodipine 5 mg by mouth daily with hold parameters. BPH-- Continue Rapaflo Level of Care Med/Surg Resuscitation Status FULL RESUSCITATION VTE Prophylaxis VTE Risk Assessment Done? Y/N: Yes Risk Level: Moderate Given or contraindicated: Unfractionated heparin SQ, SCD's Social Service Consult None Apply Note Total Time: Critical Care 30 - 74 minutes Additional Copies To Bolivar Chavarria M.D.
[2017-06-23] VITALS (7 sets, daily range): BP systolic 149–174; BP diastolic 83–98; PULSE 74–83; TEMP 36.5; O2SAT 95–99; Ht 167.6 cm; Wt 82.0 kg
[2017-06-23] MEDS ORDERED: GLUCOSE 10 TABS/TUBE PO PRN (00:15)
[2017-06-23] MEDS ORDERED: GLUCOSE 40% GEL 15 GM TUBE PO PRN (00:15)
[2017-06-23] MEDS ORDERED: GLUCAGON FOR INJ 1 MG VIAL SQ PRN (00:15)
[2017-06-23] MEDS ORDERED: DEXTROSE 50% 50 ML SYR IV PRN (00:15)
[2017-06-23] MEDS ORDERED: IV FLUIDS COMPLETED PRN (00:30)
--- NOTE | 2017-06-23 01:16 | EMERGENCY ROOM VISIT NOTE ---
History Report prepared by Aldo: Debora [place] Under the Supervision of: Dr. Bronson Beard M.D. First contact with patient: 18:57 Chief Complaint: RESPIRATORY PROBLEMS Stated Complaint: LABOR BREATHING, HIGH BP AND SUGAR History of Present Illness The patient is an 82 year old male who presents to the Emergency Room with complaints of persistent SOB starting last night. The patient started feeling unable to catch his breath last night. He had right rotator cuff surgery 2 weeks ago. Since then he has difficulty sleeping at night from the pain, but he had not had any SOB. He feels that the SOB has gotten worse today. He is also complaining of nausea and abdominal pain which started after the SOB. He reports fever, chills, restless legs, and sore throat. He feels he is losing his breath when he swallows starting this morning. He is having some pain in his arm from his surgery which he has been having since the surgery. He notes that he was able to walk a mile to get the mail today. He started a new pain pill, hydrocodone, yesterday. He denies any history of lung problems. Pt denies LOC, headache, diaphoresis, visual changes, neck pain, chest pain, vomiting, back pain, melena, hematochezia, urinary symptoms, numbness, weakness, lymphadenopathy, rash, or other complaints. Source of History: patient, family Onset: last night Position: other (global) Quality: other (SOB) Timing: other (persistent) Associated Symptoms: + fevers, + chills, + sorethroat, + nausea, + abdominal pain Note: Pt reports difficulty swallowing, restless legs. Review of Systems See HPI for pertinent positives and negatives. A total of ten systems were reviewed and were otherwise negative. Past Medical & Surgical Medical Problems: (1) Dyspnea (2) TIA (transient ischemic attack) Surgical Problems: (1) History of cardiac cath Family History Patient reports no known family medical history. Social History Smoking Status: Never Smoker Marital Status: Occupation Status: retired Current/Historical Medications Scheduled Amlodipine Besylate (Norvasc), 5 MG PO DAILY Metformin HCl (Metformin HCl), 500 MG PO QAM Omeprazole (Prilosec), 20 MG PO DAILY Silodosin (Rapaflo), 8 MG PO DAILY [Antibiotic], 1 TAB PO BID Allergies Coded Allergies: Sulfa Antibiotics (Verified Allergy, Severe, EDEMA, 06/22/17) Physical Exam Vital Signs Date Time Temp Pulse Resp B/P (MAP) Pulse Ox O2 Delivery O2 Flow Rate FiO2 06/22/17 22:14 73 22 141/94 96 Room Air 06/22/17 21:06 76 22 134/72 96 Room Air 06/22/17 20:06 79 26 138/78 97 Room Air 06/22/17 19:16 98 Room Air 06/22/17 19:08 83 06/22/17 19:05 98 Room Air 06/22/17 18:48 36.7 89 26 99 Room Air Physical Exam GENERAL: Awake, alert, anxious-appearing, in no distress HENT: Normocephalic, atraumatic. Oropharynx unremarkable. No edema. EYES: Normal conjunctiva. Sclera non-icteric. NECK: Supple. No nuchal rigidity. FROM. No JVD. No stridor. RESPIRATORY: Tachypnea. Clear to auscultation. CARDIAC: Regular rate, normal rhythm. Extremities warm and well perfused. Pulses equal. ABDOMEN: Soft, non-distended. No tenderness to palpation. No rebound or guarding. No masses. RECTAL: Deferred. MUSCULOSKELETAL: Chest examination reveals no tenderness. Bruising over the right shoulder. Healing surgical incision over the right deltoid. No significant RUE edema. The back is symmetrical on inspection without obvious abnormality. There is no CVA tenderness to palpation. No joint edema. LOWER EXTREMITIES: Calves are equal size bilaterally and non-tender. Trace lower extremity edema. No discoloration. NEURO: Normal sensorium. No sensory or motor deficits noted. SKIN: No rash or jaundice noted. Medical Decision & Procedures ER Provider Diagnostic Interpretation: Radiology results as stated below per my review and radiologist interpretation: CHEST ONE VIEW PORTABLE HISTORY: Short of breath., recent right rotator cuff repair COMPARISON: None. FINDINGS: The lungs are clear. Cardiac silhouette is normal in size. No pleural effusions. No pneumothorax. Epigastric surgical clips. IMPRESSION: No acute process. Electronically signed by: Beau Piper M.D. 06/22/2017 7:56 PM Dictated Date/Time: 06/22/2017 7:55 PM CHEST CTA for PULMONARY ARTERIES CT DOSE: 626.28 mGy.cm HISTORY: Short of breath. TECHNIQUE: Multiaxial CT images of the chest were performed following the intravenous administration of contrast to evaluate the pulmonary arteries. Maximal intensity projection images were also obtained. A dose lowering technique was utilized adhering to the principles of ALARA. COMPARISON STUDY: None. FINDINGS: There is a normal caliber thoracic aorta with no evidence for dissection. There is no evidence for pulmonary embolus. No pleural effusions. No pneumothorax. The liver and spleen are unremarkable. No mediastinal or hilar lymphadenopathy. The central airways are patent. The lungs are clear. Epigastric surgical clips. Mild soft tissue edema within the right shoulder consistent with the recent postoperative change. IMPRESSION: No evidence for pulmonary embolus. Electronically signed by: Beau Piper M.D. 06/22/2017 9:29 PM Dictated Date/Time: 06/22/2017 9:20 PM Laboratory Results 06/22/17 19:05 Red Blood Count 5.13, Mean Corpuscular Volume 86.2, Mean Corpuscular Hemoglobin 29.8, Mean Corpuscular Hemoglobin Concent 34.6, Mean Platelet Volume 9.8, Neutrophils (%) (Auto) 71.9, Lymphocytes (%) (Auto) 17.3, Monocytes (%) (Auto) 6.9, Eosinophils (%) (Auto) 3.2, Basophils (%) (Auto) 0.5, Neutrophils # (Auto) 7.96, Lymphocytes # (Auto) 1.92, Monocytes # (Auto) 0.76, Eosinophils # (Auto) 0.35, Basophils # (Auto) 0.06 06/22/17 19:05 Test 06/22/17 19:05 06/22/17 19:30 White Blood Count 11.07 K/uL (4.8-10.8) Red Blood Count 5.13 M/uL (4.7-6.1) Hemoglobin 15.3 g/dL (14.0-18.0) Hematocrit 44.2 % (42-52) Mean Corpuscular Volume 86.2 fL (80-100) Mean Corpuscular Hemoglobin 29.8 pg (25-34) Mean Corpuscular Hemoglobin Concent 34.6 g/dl (32-36) Platelet Count 280 K/uL (130-400) Mean Platelet Volume 9.8 fL (7.4-10.4) Neutrophils (%) (Auto) 71.9 % Lymphocytes (%) (Auto) 17.3 % Monocytes (%) (Auto) 6.9 % Eosinophils (%) (Auto) 3.2 % Basophils (%) (Auto) 0.5 % Neutrophils # (Auto) 7.96 K/uL (1.4-6.5) Lymphocytes # (Auto) 1.92 K/uL (1.2-3.4) Monocytes # (Auto) 0.76 K/uL (0.11-0.59) Eosinophils # (Auto) 0.35 K/uL (0-0.5) Basophils # (Auto) 0.06 K/uL (0-0.2) RDW Standard Deviation 43.5 fL (36.4-46.3) RDW Coefficient of Variation 13.9 % (11.5-14.5) Immature Granulocyte % (Auto) 0.2 % Immature Granulocyte # (Auto) 0.02 K/uL (0.00-0.02) Anion Gap 12.0 mmol/L (3-11) Est Creatinine Clear Calc Drug Dose 40.8 ml/min Estimated GFR () 54.4 Estimated GFR (Non- 46.9 BUN/Creatinine Ratio 10.8 (10-20) Calcium Level 9.2 mg/dl (8.5-10.1) Total Bilirubin 0.5 mg/dl (0.2-1) Aspartate Amino Transf (AST/SGOT) 19 U/L (15-37) Alanine Aminotransferase (ALT/SGPT) 27 U/L (12-78) Alkaline Phosphatase 117 U/L (45-117) Total Creatine Kinase 155 U/L (39-308) Creatine Kinase MB 1.9 ng/ml (0.5-3.6) Creatine Kinase MB Ratio 1.2 (0-3.0) Troponin I < 0.015 ng/ml (0-0.045) Pro-B-Type Natriuretic Peptide 117 pg/ml (0-1800) Total Protein 7.9 gm/dl (6.4-8.2) Albumin 3.7 gm/dl (3.4-5.0) Globulin 4.2 gm/dl (2.5-4.0) Albumin/Globulin Ratio 0.9 (0.9-2) Chemistry Specimen Hemolysis Urine Color YELLOW Urine Appearance CLEAR (CLEAR) Urine pH 8.5 (4.5-7.5) Urine Specific [place] 1.014 (1.000-1.030) Urine Protein NEG (NEG) Urine Glucose (UA) NEG (NEG) Urine Ketones NEG (NEG) Urine Occult Blood NEG (NEG) Urine Nitrite NEG (NEG) Urine Bilirubin NEG (NEG) Urine Urobilinogen NEG (NEG) Urine Leukocyte Esterase NEG (NEG) Laboratory results reviewed by me ECG Indication: SOB/dyspnea Rate (beats per minute): 81 Rhythm: normal sinus Findings: no acute ischemic change, left axis deviation, other (poor R wave progression anteriorly) Comparison ECG Date: 09-Dec-2016 Change: no significant change ED Course 1908: The patient was evaluated in room B11B. A complete history and physical exam was performed. 2043: I reevaluated the patient. He will go for CT. 2209: I reevaluated the patient. I discussed the results with him. He verbalized agreement of the treatment plan. He will be evaluated for further management. 2219: I discussed the patient's case with Dr. Raya and Dr. Georges [facility] hospitalist. The patient will be evaluated for further treatment and disposition. Medical Decision Triage Nursing notes reviewed. The patient's presentation and history were concerning for SOB. Etiologies such as pneumonia, COPD, reactive airway disease, CHF, cardiac ischemia, pulmonary embolism, pneumothorax, musculoskeletal, infections, gastrointestinal, as well as others were entertained. The patient was evaluated. He was in some respiratory distress but his vital signs looked well. ECG did not show any ischemia. The patient's chest x-ray was unremarkable. CBC, chemistry panel, LFTs, cardiac markers and BNP were unremarkable as well. Because of the recent surgery the patient underwent CT PE study for rule out pulmonary embolism. No pulmonary embolism or lung abnormality was found. On reassessment the patient was feeling better. His symptoms were concerning given his age and recent surgery. A further workup will be necessary in the hospital to H or there is no cardiac source for his symptoms. The patient and family were in agreement. Consultation was made with the hospitalist. The patient was evaluated in the Emergency Room for further management. Medication Reconcilliation Current Medication List: was personally reviewed by me Blood Pressure Screening Patient's blood pressure: Elevated blood pressure Referred to hospitalist. Consults Time Called: 2217 Consulting Physician: Dr. Raya and Dr. OLIMPIA Georges hospitalist Returned Call: 2220 Discussed the patient's case. The patient will be evaluated for further treatment and disposition. Impression Primary Impression: SOB (shortness of breath) Scribe Attestation The scribe's documentation has been prepared under my direction and personally reviewed by me in its entirety. I confirm that the note above accurately reflects all work, treatment, procedures, and medical decision making performed by me. Departure Information Dispostion Being Evaluated By Hospitalist Referrals Bolivar Chavarria M.D. (PCP) Patient Instructions My [facility]
[2017-06-23] MEDS: LEVALBUTEROL 0.31MG/3 ML VIAL INH SCH ×3 (02:14→14:06)
[2017-06-23 06:45] LABS: PROTHROMBIN TIME (PATIENT) 10.7 SECONDS (9.0-12.0)
[2017-06-23] MEDS ORDERED: RAPAFLO~ORDER AWAITING ACTION SCH (08:00)
[2017-06-23] MEDS: INSULIN ASPART 100 UNITS/ML 3 ML PEN SC SCH ×2 (08:21→11:57)
[2017-06-23] MEDS ORDERED: AMLODIPINE BESYLATE 5 MG TAB PO SCH (09:00)
[2017-06-23] MEDS ORDERED: HEPARIN SOD 5000 UNIT/0.5 ML CARP SQ SCH (09:00)
[2017-06-23] MEDS ORDERED: PANTOprazole SOD 40 MG TAB PO SCH (09:00)
--- NOTE | 2017-06-23 11:09 | Discharge Instructions ---
Discharge Instructions Date of Service Jun 23, 2017. Admission Reason for Admission: Dyspnea Discharge Discharge Diagnosis / Problem: URI Discharge Goals Goal(s): Decrease discomfort, Diagnostic testing, Therapeutic intervention Activity Recommendations Activity Limitations: resume your previous activity . Instructions / Follow-Up Instructions / Follow-Up Mr. Gamez, neil were admitted for progressive shortness of breath that started a week ago and worsened yesterday. We did a thorough work up. We do not think you have a blood clot in your lungs or pneumonia at this time. We also made sure you were not having a heart attack. Given you had a mild fever, sore throat and cough with sputum along with the shortness of breath that started yesterday, we believe you have a viral upper respiratory infection which does not require antibiotics and should improve on its own in about a week. Please hydrate well and return if your symptoms worsen or you notice any chest pain. You also felt a little down and anxious for which we would like you to see your primary care doctor, Dr. Chavarria in 1-2 days. Follow up with Dr. Chavarria in 1-2 days for shortness of breath and to discuss anxiety/depressive symptoms Continue taking your home medications as prescribed Return to the ED if you have worsening shortness of breath, chest pain/pressure and/or pass out Current Hospital Diet Patient's current hospital diet: Diabetes Type 2 Diet Discharge Diet Recommended Diet: AHA Diet (Heart Healthy) Pending Studies Studies pending at discharge: no Laboratory Results Hemoglobin A1c Test 05/13/17 12:43 Range/Units Estimated Average Glucose 148 mg/dl Hemoglobin A1c 6.8 H 4.5-5.6 % Lipid Panel Test 05/13/17 12:43 Range/Units Triglycerides Level 151 H 0-150 mg/dl Cholesterol Level 169 0-200 mg/dl HDL Cholesterol 42 mg/dl Cholesterol/HDL Ratio 4.0 LDL Cholesterol, Calculated 97 mg/dl Medical Emergencies . Who to Call and When: Medical Emergencies: If at any time you feel your situation is an emergency, please call 911 immediately. . Non-Emergent Contact Non-Emergency issues call your: Primary Care Provider Call Non-Emergent contact if: you have a fever, temperature is above 101, your pain is worsening having worsening of shortness of breath and/or you develop chest pain or palpitations . . "Provider Documentation" section prepared by Rahiba Noor. . VTE Core Measure Inpt VTE Proph given/why not?: Unfractionated heparin SQ, SCD's
--- NOTE | 2017-06-23 13:11 | ECHOCARDIOGRAM REPORT ---
*NOTICE TO RECEIVING CONSTITUTION PARTY AGENCY This information is strictly Confidential and protected under [place] law. [place] law prohibits you from making any further disclosure of this information unless further disclosure is expressly permitted by the written consent of the person to whom it pertains or is authorized by law. A general authorization for the release of medical or other information is not sufficient for this purpose. Hospital accepts no responsibility if the information is made available to any other person, INCLUDING THE PATIENT. Interpretation Summary * Name: SHAHLA LOPEZ Study Date: 06/23/2017 07:34 AM BP: 149/84 mmHg * Patient Location: .[id number]\W252\S\1 HR: 80 * : 1935 (M/d/yyyy) Gender: Male Height: 66 in * Age: 82 yrs Ethnicity: [place] Weight: 180 lb * Ordering Physician: Shey Raya * Referring Physician: Self, Referred * Performed By: Jia Sanz RDCS * * Reason For Study: Shortness of breath * BSA: 1.9 m2 * -- Conclusions -- * Left ventricular systolic function is normal. * No regional wall motion abnormalities noted. * Ejection Fraction = 60-65%. * There is mild concentric left ventricular hypertrophy. * Mild valvular aortic stenosis. * Mild aortic regurgitation. * Compared with study dated 12/10/2016, no significant change. Procedure Details * A complete two-dimensional transthoracic echocardiogram was performed (2D, M-mode, Doppler and color flow Doppler). * The study was technically limited. * The study was technically difficult. * Limited views were obtained. * There were technical limitations due to patient'spoor positioning * A contrast injection of Definity was performed to improve assessment of LV function. * Contrast was injected into an intravenous site in the left arm. * One vial of Definity ultrasound contrast was diluted in normal saline to a total volume of 10 ml. A total of '2' ml of solution was administered during imaging. * Lot # [id number] of Definity utilized for procedure. * Expiration date JUN 23. * The attending nurse who injected the contrast agent was Olga Jiménez RN. Left Ventricle * The left ventricle is normal in size. * There is mild concentric left ventricular hypertrophy. * Ejection Fraction = 60-65%. * Left ventricular systolic function is normal. * No regional wall motion abnormalities noted. Right Ventricle * The right ventricle is not well visualized. * The right ventricular systolic function is normal as assessed by tricuspid annular plane systolic excursion (TAPSE) (normal >1.5 cm). Atria * The left atrium is mildly dilated. * Right atrium not well visualized. * There is no evidence of atrial septal defect, but resolution does not allow assessment for a patent foramen ovale. Mitral Valve * The mitral valve is grossly normal. * There is no mitral valve stenosis. * Significant mitral regurgitation is absent. Tricuspid Valve * The tricuspid valve is not well visualized. * Significant tricuspid regurgitation is absent. Aortic Valve * The aortic valve is not well visualized. * Mild valvular aortic stenosis. * Mild aortic regurgitation. Pulmonic Valve * The pulmonary valve is not well seen, but the Doppler examination is normal without significant regurgitation or stenosis. Great Vessels * The aortic root is normal size. * The pulmonary is not well visualized. Pericardium/Pleural * There is no pericardial effusion. Great Vessels * Normal inferior vena cava size and collapsability with sniff indicates a normal right atrial pressure of 3 mmHg Left Ventricular Diastolic Function * Grade I diastolic dysfunction, (abnormal relaxation pattern). MMode 2D Measurements and Calculations IVSd 1.1 cm LVIDd 3.8 cm LVIDs 2.5 cm LVPWd 1.1 cm IVS/LVPW 0.98 FS 34.3 % EDV(Teich) 62.5 ml ESV(Teich) 22.5 ml EF(Teich) 64.1 % EDV(cubed) 55.5 ml ESV(cubed) 15.7 ml EF(cubed) 71.7 % LV mass(C)d 132.9 grams LV mass(C)dI 69.5 grams/m\S\2 SV(Teich) 40.1 ml SI(Teich) 21.0 ml/m\S\2 SV(cubed) 39.8 ml SI(cubed) 20.8 ml/m\S\2 Ao root diam 3.2 cm Ao root area 8.1 cm\S\2 ACS 1.5 cm LA dimension 2.6 cm asc Aorta Diam 3.3 cm LA/Ao 0.82 LVOT diam 2.0 cm LVOT area 3.2 cm\S\2 LVAd ap4 22.3 cm\S\2 LVLd ap4 6.9 cm EDV(MOD-sp4) 61.2 ml EDV(sp4-el) 60.9 ml LVAs ap4 11.9 cm\S\2 LVLs ap4 5.4 cm ESV(MOD-sp4) 22.2 ml ESV(sp4-el) 22.2 ml EF(MOD-sp4) 63.8 % EF(sp4-el) 63.6 % LVAd ap2 13.3 cm\S\2 LVLd ap2 6.7 cm EDV(MOD-sp2) 22.2 ml EDV(sp2-el) 22.7 ml LVAs ap2 7.0 cm\S\2 LVLs ap2 5.0 cm ESV(MOD-sp2) 8.4 ml ESV(sp2-el) 8.3 ml EF(MOD-sp2) 62.0 % EF(sp2-el) 63.2 % LVLd %diff -4.08 % EDV(MOD-bp) 36.6 ml LVLs %diff -9.48 % ESV(MOD-bp) 14.3 ml EF(MOD-bp) 60.9 % SV(MOD-sp4) 39.0 ml SI(MOD-sp4) 20.4 ml/m\S\2 SV(MOD-sp2) 13.7 ml SI(MOD-sp2) 7.2 ml/m\S\2 SV(MOD-bp) 22.3 ml SI(MOD-bp) 11.6 ml/m\S\2 SV(sp4-el) 38.8 ml SI(sp4-el) 20.3 ml/m\S\2 SV(sp2-el) 14.3 ml SI(sp2-el) 7.5 ml/m\S\2 Doppler Measurements and Calculations MV E max brandy 53.3 cm/sec MV A max brandy 88.3 cm/sec MV E/A 0.60 MV dec time 0.29 sec Ao V2 max 260.8 cm/sec Ao max PG 27.3 mmHg Ao max PG (full) 24.2 mmHg Ao V2 mean 176.6 cm/sec Ao mean PG 14.4 mmHg Ao V2 VTI 50.3 cm LEXUS(V,A) 1.1 cm\S\2 LEXUS(V,D) 1.1 cm\S\2 AI max brandy 407.7 cm/sec AI max PG 66.5 mmHg AI dec slope 148.2 cm/sec\S\2 AI P1/2t 805.7 msec LV V1 max PG 3.0 mmHg LV V1 max 86.7 cm/sec SV(Ao) 408.6 ml SI(Ao) 213.6 ml/m\S\2 PA V2 max 73.3 cm/sec PA max PG 2.2 mmHg PA acc slope 375.3 cm/sec\S\2 PA acc time 0.13 sec TR max brandy 229.1 cm/sec PA pr(Accel) 22.8 mmHg
--- NOTE | 2017-06-23 18:07 | Discharge Summary ---
Discharge Summary Date of Service Jun 23, 2017. (Yary Alan M.D.) Discharge Summary Admission Date: Jun 22, 2017 at 23:31 Discharge Date: Jun 23, 2017 Discharge Disposition: Home Principal Diagnosis: progressive dyspnea, URI Problems/Secondary Diagnoses: Hypertension BPH DM type 2 Immunizations: Have You Had Influenza Vaccine: Unknown History of Tetanus Vaccine?: Unknown History of Pneumococcal: Unknown History of Hepatitis B Vaccine: Unknown Procedures: ECHO - CONCLUSIONS Left ventricular systolic function is normal. No regional wall motion abnormalities noted. Ejection Fraction = 60-65%. There is mild concentric left ventricular hypertrophy. Mild valvular aortic stenosis. Mild aortic regurgitation. CTA CHEST CTA for PULMONARY ARTERIES CT DOSE: 626.28 mGy.cm HISTORY: Short of breath. TECHNIQUE: Multiaxial CT images of the chest were performed following the intravenous administration of contrast to evaluate the pulmonary arteries. Maximal intensity projection images were also obtained. A dose lowering technique was utilized adhering to the principles of ALARA. COMPARISON STUDY: None. FINDINGS: There is a normal caliber thoracic aorta with no evidence for dissection. There is no evidence for pulmonary embolus. No pleural effusions. No pneumothorax. The liver and spleen are unremarkable. No mediastinal or hilar lymphadenopathy. The central airways are patent. The lungs are clear. Epigastric surgical clips. Mild soft tissue edema within the right shoulder consistent with the recent postoperative change. IMPRESSION: No evidence for pulmonary embolus. CXR CHEST ONE VIEW PORTABLE HISTORY: Short of breath., recent right rotator cuff repair COMPARISON: None. FINDINGS: The lungs are clear. Cardiac silhouette is normal in size. No pleural effusions. No pneumothorax. Epigastric surgical clips. IMPRESSION: No acute process. (Yary Alan M.D.) Principal Diagnosis: Dyspnea - Negative work up. Possibly anxiety (Gauri Weaver M.D.) Medication Reconciliation Continued Medications: Amlodipine Besylate (Norvasc) 5 Mg Tab 5 MG PO DAILY, TAB Metformin HCl (Metformin HCl) 500 Mg Tab 500 MG PO QAM Omeprazole (Prilosec) 20 Mg Capcr 20 MG PO DAILY, CAP Silodosin (Rapaflo) 8 Mg Cap 8 MG PO DAILY [Antibiotic] () 1 TAB PO BID Discharge Exam Review of Systems: Constitutional: No fever Respiratory: + cough, + sputum, + shortness of breath, + dyspnea on exertion , + dyspnea at rest, + problem reported (chest tightness) Cardiovascular: No chest pain, No palpitations Abdomen: No pain, No nausea, No vomiting Genitourinary - Male: No dysuria Neurologic: + problem reported (denied COOMBS/dizziness) Physical Exam: General Appearance: no apparent distress Eyes: normal inspection Neck: supple Respiratory/Chest: lungs clear, normal breath sounds Cardiovascular: regular rate, rhythm, no edema, no murmur Abdomen / GI: normal bowel sounds, non tender, soft, + pertinent finding ( surgical midline abdominal scar ) Extremities: no pedal edema, + pertinent finding (R arm in sling from recent right rotator cuff repair) Neurologic/Psychiatric: alert, oriented x 3 (Yary Alan M.D.) no more shortness of breath. No chest pain. has been feeling depressed since of his . does gets anxious at times. sleep hasn't been good. Review of Systems: Constitutional: No fever Respiratory: No shortness of breath Cardiovascular: No chest pain Abdomen: No pain Physical Exam: General Appearance: no apparent distress Respiratory/Chest: lungs clear, no respiratory distress Cardiovascular: regular rate, rhythm Neurologic/Psychiatric: alert, oriented x 3 Skin: warm/dry (Gauri Weaver M.D.) Hospital Course Mr. Gamez is an 82 yoM with hx of recent R rotator cuff surgery, TIA and HTN admitted for progressive dyspnea which started a week ago and worsened on . A cardiac etiology was ruled out with a negative troponin which was reassuring given onset of SOB a week prior and it worsened > 12 hours prior to troponin draw. ECHO and EKG were also reassuring. CTA also ruled out PE and CXR ruled out pneumonia. Given history of mild fever, sore throat and cough with sputum along with shortness of breath a viral upper respiratory infection is very likely. Dyspnea with exertion and at rest - Admitted to [facility] as pt was and remained hemodynamically stable - Started on xopenex/ atovent q6h - Did not receive Abx given normal WBC and procalcitonin - Troponin and proBNP negative - ECHO: EF 60-65%, mild concentric LVH, mild aortic stenosis and regurgitation - CTA ruled out PE - CXR ruled out acute pulmonary pathology - Incentive spirometry - Instructed to return to the ED if he has worsening of shortness of breath, chest pain/pressure and/or pass out. DMII - metformin held - insulin ISS with BSG AC HS HTN - Continued on home amlodipine 5 mg BPH - Continue on home Rapaflo DVT Prophylaxis Started on heparin bid Total Time Spent: Less than 30 minutes This includes examination of the patient, discharge planning, medication reconciliation, and communication with other providers. (Yary Alan M.D.) Resident Physician Supervision Note: I independently interviewed and examined the patient and verified the [place] history and physical, reviewed labs and image studies, discussed the case with the resident Dr. Alan and agree with the findings and care plan. Total Time Spent: Greater than 30 minutes (Gauri Weaver M.D.) Discharge Instructions Please refer to the electronic Patient Visit Report (Discharge Instructions) for additional information. (Yary Alan M.D.) Additional Copies To Bolivar Chavarria M.D.
== END 2017-06-23 14:25 | disposition home or self-care (01) ==
LOC: C.EDB 18:22 → C.MS2W 23:31 → ENRESERV 23:36
PROVIDERS: ADMIT Student in an Organized Health Care Education/Training Program; ATTEND Family Medicine
DX: J06.9 Acute upper respiratory infection, unspecified (principal); I35.0 Nonrheumatic aortic (valve) stenosis; I10 Essential (primary) hypertension; E11.9 Type 2 diabetes mellitus without complications; N40.0 Benign prostatic hyperplasia without lower urinary tract symptoms; Z87.891 Personal history of nicotine dependence; Z86.73 Personal history of transient ischemic attack (TIA), and cerebral infarction without residual deficits; Z79.84 Long term (current) use of oral hypoglycemic drugs; Z79.899 Other long term (current) drug therapy

== ENCOUNTER → 2017-06-28 | Outpatient (CLI) | payer OTHER ==
[~2017-06-28] MED LIST changes: +ANTICRE6 PO; -DICL1GEL12 TOP; +GLC500 PO; +PRLSR20 PO; +RPF/8 PO; -SENNTAB23 PO; -TAMS0.4C38 PO
[2017-06-28 18:00] LABS: BLOOD UREA NITROGEN 16 mg/dl (7-18); BUN/CREATININE RATIO 12.8 (10-20); CALCIUM 9.1 mg/dl (8.5-10.1); CARBON DIOXIDE 27 mmol/L (21-32); CHLORIDE 103 mmol/L (98-107); CREATININE 1.23 mg/dl (0.60-1.40); GLUCOSE 128 mg/dl (70-99); POTASSIUM 4.3 mmol/L (3.5-5.1); SODIUM 136 mmol/L (136-145)
== END | disposition home or self-care (01) ==
LOC: C.LABBFT 15:16
PROVIDERS: ATTEND Internal Medicine
DX: I10 Essential (primary) hypertension (principal)

== ENCOUNTER → 2017-12-15 | Outpatient (CLI) | payer OTHER ==
[2017-12-15 16:34] LABS: BASO % 0.5 %; BASO ABS # 0.05 K/uL (0-0.2); EOS % 7.4 %; EOS ABS # 0.77 K/uL (0-0.5); HEMATOCRIT 44.1 % (42-52); HEMOGLOBIN 15.1 g/dL (14.0-18.0); IG# 0.02 K/uL (0.00-0.02); LYMPH % 20.5 %; LYMPH ABS # 2.12 K/uL (1.2-3.4); MEAN CELL VOLUME 89.6 fL (80-100); MEAN CORPUSCULAR HEMOGLOBIN 30.7 pg (25-34); MEAN CORPUSCULAR HGB CONC 34.2 g/dl (32-36); MEAN PLATELET VOLUME 10.8 fL (7.4-10.4); MONO % 9.7 %; NEUT % 61.7 %; PLATELET COUNT 256 K/uL (130-400); RED CELL DISTRIBUTION WIDTH CV 14.3 % (11.5-14.5); RED CELL DISTRIBUTION WIDTH SD 46.8 fL (36.4-46.3); WHITE BLOOD COUNT 10.36 K/uL (4.8-10.8)
[2017-12-15 16:42] LABS: BLOOD UREA NITROGEN 13 mg/dl (7-18); CALCIUM 8.9 mg/dl (8.5-10.1); CARBON DIOXIDE 27 mmol/L (21-32); CREATININE 1.37 mg/dl (0.60-1.40); GLUCOSE 122 mg/dl (70-99); POTASSIUM 4.3 mmol/L (3.5-5.1); SODIUM 136 mmol/L (136-145)
[2017-12-16 06:37] LABS: HEMOGLOBIN A1C 6.9 % (4.5-5.6)
== END | disposition home or self-care (01) ==
LOC: C.LABBFT 13:39
PROVIDERS: ATTEND Internal Medicine
DX: E11.22 Type 2 diabetes mellitus with diabetic chronic kidney disease (principal); N18.3 Chronic kidney disease, stage 3 (moderate)

== ENCOUNTER → 2017-12-21 | Outpatient (CLI) | payer OTHER | END | disposition home or self-care (01) | LOC: C.LABBFT 14:37 | PROVIDERS: ATTEND Internal Medicine | DX: R53.1 Weakness (principal) ==

== ENCOUNTER → 2017-12-30 | Outpatient (CLI) | payer OTHER ==
--- NOTE | 2017-12-30 10:57 | DIAGNOSTIC IMAGING REPORT ---
CHEST 2 VIEWS ROUTINE CLINICAL HISTORY: R06.02 Shortness of [id number] COMPARISON STUDY: 06/22/2017 FINDINGS: The heart is mildly enlarged. There is persistent aortic tortuosity/ectasia. There is no failure. There is no focal pulmonary consolidation. There are no pleural effusions. Degenerative changes are present within the dorsal spine.[ IMPRESSION: No active disease in the chest. Electronically signed by: Deon Araiza M.D. 12/30/2017 10:56 AM Dictated Date/Time: 12/30/2017 10:55 AM
== END | disposition home or self-care (01) ==
LOC: C.RAD1850 10:43
PROVIDERS: ATTEND Internal Medicine
DX: R06.02 Shortness of breath (principal)

== ENCOUNTER 2021-05-25 13:47 | Observation (INO) ==
--- NOTE | 2021-05-25 15:11 | Emergency Department Note ---
Impression & Plan Acute left-sided weakness, Stroke ED Provider Note Provider: Jose Rueda MD DATE OF SERVICE: 05/25/2021 CHIEF COMPLAINT: Left arm numbness and weakness HISTORY OF PRESENT ILLNESS: Patient is a 86-year-old woman history of GI bleed CAD, CKD, and diabetes with a history of TIA presenting here brought by daughter today with the onset of symptoms yesterday afternoon while driving. Patient states yesterday while driving and experienced some numbness of his left forearm and a little bit of weakness here but was able to make at home. States he took an aspirin when he got home which he does not normally take due to his history of GI bleeding. Throughout the evening this persisted and he seemed to have a little bit of weakness in his left toe was dragging a little bit. States he became somewhat nauseous overnight but denies any severe headache. States his left eye seems to be a little bit off and the daughter reports some concerns as little bit droopy. Patient denies any nausea now but reported earlier to his daughter before coming in. Patient's had some weakness of his left arm and weakness of his left leg and his daughter was concerned for stroke so came here for further evaluation. Patient states he has been eating and drinking okay and has an additional getting his words out. Did take an aspirin this morning. Denies significant abdominal pain or chest pain at this time. REVIEW OF SYSTEMS: A total of 10 review of systems was obtained and negative except as stated above in the HPI. PAST MEDICAL HISTORY: As noted above MEDICATIONS: Reviewed home medications SOCIAL HISTORY: Lives at home by himself, PHYSICAL EXAM: GENERAL: alert and oriented in no acute distress on stretcher Head: normocephalic and atraumatic EYES: No injection, discharge or icterus. PERRL, left eyelid she has slightly droopier than the right NECK: Trachea midline. Supple. ENT: Mucous membranes pink and moist. Pharynx without erythema or exudate. LUNGS: Airway patent. No retractions. Breath sounds clear with good air entry bilaterally. HEART: Regular rate and rhythm. No chest wall tenderness ABDOMEN: Soft and non-tender, without guarding or rebound. SKIN: Acyanotic, warm, dry, without rashes EXTREMITIES: Without swelling, tenderness or deformity NEUROLOGICAL: Mild left facial droop. No obvious visual field cuts. Tongue midline. No slurred speech. Very slight droop to the left eye. No facial numbness appreciated on exam by the patient. Patient states he does not have any numbness at this time in the left arm but there is some pronator drift on the left side. Significant weakness in the left leg but is able to lift against gravity off the bed briefly. Good intact sensation and strength in the right arm and leg. EK bpm normal sinus rhythm. No PVC or PAC. No acute ST segment elevation or depression noted. QTc 429. CONTINUOUS CARDIAC MONITORING: was ordered and showed a heart rate of 60s to 80s bpm in normal sinus rhythm Patient's laboratory studies and imaging reviewed. Differential includes Infection, dehydration, metabolic abnormality, hypo/hyperglycemia, electrolyte disturbance, anemia, hypoxia, cardiac sources, intracerebral event, toxicologic, neurologic, as well as other pathologies. IMPRESSION/MEDICAL DECISION MAKING: Patient presents outside the TPA window with symptoms starting yesterday with some slight left facial droop and droopy eyelid with some slight numbness and weakness left arm and some particular weakness in the left leg. Patient did take some aspirin although is a history of GI bleed yesterday and today. Basic labs were completed. CT was completed as well as CTA of the head and neck. No evidence of acute intracranial bleed. There is evidence of some intracranial stenoses and carotid stenoses as well as a possible left vertebral occlusion. Symptoms seem to localize more to the right MCA rather than cerebellar or to the left MCA distribution. Did discuss with neurology Dr. Olivo the findings and patient's already taken some aspirin tonight. No other acute intervention at this time given his age, exam, and the timeframe. Discussed with the patient and daughter at bedside findings. Discussed recommendation for further care and observation here in the hospital. Patient is adamant he will not do an MRI given claustrophobia issues. Discussed with him we can get PT and OT evaluate him for any therapy issues and have neurology weigh in on possible preventative measures going forward to prevent any further strokes or issues. Will need to have risk-benefit discussion regarding antiplatelet medication given his history reportedly of some GI bleeding. After long discussion patient was agreeable. Patient's daughter was in agreement with this plan as well Hospitalist was co ntacted. DIAGNOSIS: Left-sided weakness, stroke DISPOSITION: Hospitalist will evaluate Patient was agreeable with this plan. Past Med/Surg History Medical History Aortic stenosis Asthma, mild persistent Benign prostatic hyperplasia with urinary obstruction CAD (coronary artery disease) Carpal tunnel syndrome of right wrist Cervical disc disease Cervical radiculopathy Chronic kidney disease, stage 3 Depression with anxiety Diabetes mellitus type II, controlled Generalized osteoarthritis Gout H/O Doppler echocardiogram Hypertension Lumbar radiculopathy Ocular migraine Polyneuropathy Vitamin D deficiency Surgical History S/P partial gastrectomy Family History Mother Diabetes Sister Diabetes Father Denies family history of Ovarian cancer Prostate cancer Coronary heart disease Myocardial infarction Breast cancer Colorectal cancer Social History Smoking Status: Never smoker Age Started Using Tobacco: 17; Age Quit Using Tobacco: 29; packs per day: 0.5; Years Smoked: 12; Cigarettes Per Day: 10; Number of Years Since Quit: 55; Second Hand Exposure: No; Hx Alcohol Use: No Hx Substance Use: No Preferred Language: Kazakh Communication Ability: Effective Visual Impairment: No Limitations Hearing Ability: Use of Hearing Aid Obstetrics Gynecology Md Required: No marital status: Current Living Situation: Alone current occupational status: retired Feels Safe at Home: Yes Childhood Exposure to Second-Hand Smoke: No caffeine: Yes during the past year weight has: remained stable Dental Care, Regularly: No Physical Activity Frequency: Does not Exercise Seatbelt Use: always Sunscreen Use: No Allergies Allergies Allergy/AdvReac Type Severity Reaction Status Date / Time Sulfa (Sulfonamide Allergy Severe EDEMA Verified 05/25/21 16:31 Antibiotics) aspirin AdvReac Intermediate abdominal Verified 05/25/21 16:31 pain;Visual Disturbance escitalopram [From Lexapro] AdvReac Intermediate Confusion Verified 05/25/21 16:31 Home Meds Home Medications Medication Instructions Recorded Confirmed blood-glucose meter (OneTouch #1 ea 04/19/19 05/23/21 Ultra2 Meter) lancets (OneTouch UltraSoft #50 ea 04/19/19 05/23/21 Lancets) cholecalciferol (vitamin D3) 125 125 mcg PO QAM 04/11/20 09/19/21 mcg (5,000 unit) tablet (Vitamin D3) amlodipine 5 mg tablet (Norvasc) 5 mg PO QAM 05/25/21 05/25/21 diclofenac sodium 1 % topical gel 4 g TOP QID PRN 05/25/21 05/25/21 (Voltaren Arthritis Pain) finasteride 5 mg tablet (Proscar) 5 mg PO QAM 05/25/21 05/25/21 metoprolol succinate 50 mg 50 mg PO QAM 05/25/21 05/25/21 tablet,extended release 24 hr (Toprol XL) metronidazole 0.75 % topical gel 1 applic TOPICAL BID PRN 05/25/21 05/25/21 (Ros[place]) nitroglycerin 0.4 mg sublingual 0.4 mg SUBLINGUAL Q5M PRN 05/25/21 05/25/21 tablet (Nitrostat) silodosin 8 mg capsule (Rapaflo) 8 mg PO HS 05/25/21 05/25/21 Previous Rx's Medication Instructions Recorded blood sugar diagnostic (OneTouch #50 ea 11/12/20 Ultra Blue Test Strip) albuterol sulfate 90 mcg/actuation See Rx Instructions INH QID PRN 02/10/21 aerosol inhaler (Ventolin HFA) #18 g Results & Data (ED) Vital Signs Vital Signs - 24 hr 05/25/21 13:53 05/25/21 14:27 05/25/21 14:29 Temperature 36.5 C Temperature Source Temporal Artery Scan Pulse Rate 73 66 Pulse Rate [Apical] 64 Pulse Rate from SpO2 Sensor 66 Pulse Rhythm [Apical] Regular Respiratory Rate 18 16 20 Respiratory Effort / Characteristics Non-Labored Respiratory Depth Normal Blood Pressure 180/87 H 168/89 H Blood Pressure [Left Arm] 167/89 H Blood Pressure Mean 118 115 Blood Pressure Mean [Left Arm] 115 Pulse Oximetry 98 98 98 Oxygen Delivery Method Room Air Room Air Sepsis Recent Fever Within 48 Hours No Sepsis New/Unexplained Change in Mental Status No Sepsis Action Taken by Nursing No Action Required 05/25/21 15:51 Temperature Temperature Source Pulse Rate 71 Pulse Rate [Apical] Pulse Rate from SpO2 Sensor 71 Pulse Rhythm [Apical] Respiratory Rate 18 Respiratory Effort / Characteristics Respiratory Depth Blood Pressure 183/93 H Blood Pressure [Left Arm] Blood Pressure Mean 123 Blood Pressure Mean [Left Arm] Pulse Oximetry 97 Oxygen Delivery Method Sepsis Recent Fever Within 48 Hours Sepsis New/Unexplained Change in Mental Status Sepsis Action Taken by Nursing Laboratory Data Result diagrams: 05/25/21 15:20 05/25/21 15:20 Lab Results 05/25/21 05/25/21 05/25/21 Range/Units 14:48 14:48 15:15 WBC Cancelled RBC Cancelled Hgb Cancelled Hct Cancelled MCV Cancelled MCH Cancelled MCHC Cancelled RDW Std Deviation Cancelled RDW Coeff of [place]field Cancelled Plt Count Cancelled MPV Cancelled Absolute Nucleated RBC Cancelled Nucleated RBC % (auto) Cancelled Platelet Estimate Cancelled PT (9.0-12.0) Seconds INR (0.9-1.1) APTT (21.0-31.0) Seconds PTT Ratio Sodium Cancelled Potassium Cancelled Chloride Cancelled Carbon Dioxide Cancelled Anion Gap Cancelled BUN Cancelled Creatinine Cancelled Est Cr Clr Drug Dosing Cancelled Est GFR ( Amer) Cancelled Est GFR (Non-Af Amer) Cancelled BUN/Creatinine Ratio Cancelled Glucose Cancelled Calcium Cancelled Magnesium Cancelled Total Bilirubin Cancelled AST Cancelled ALT Cancelled Alkaline Phosphatase Cancelled Troponin I (0-0.045) ng/ml Total Protein Cancelled Albumin Cancelled Globulin Cancelled Albumin/Globulin Ratio Cancelled Urine Color Urine Appearance (Clear) Urine pH (4.5-7.5) Ur Specific [place] (1.000-1.030) Urine Protein (Negative) Urine Glucose (UA) (Negative) Urine Ketones (Negative) Urine Blood (Negative) Urine Nitrite (Negative) Urine Bilirubin (Negative) Urine Urobilinogen (Negative) Ur Leukocyte Esterase (Negative) COVID-19 Eval Order Covid19 at [facility] SARS-CoV-2 (PCR) (Negative) 05/25/21 05/25/21 05/25/21 Range/Units 15:15 15:20 15:20 WBC RBC Hgb Hct MCV MCH MCHC RDW Std Deviation RDW Coeff of [place] Plt Count MPV Absolute Nucleated RBC Nucleated RBC % (auto) Platelet Estimate PT 10.2 (9.0-12.0) Seconds INR 1.0 (0.9-1.1) APTT 25.9 (21.0-31.0) Seconds PTT Ratio 1.0 Sodium 134 L Potassium 4.2 Chloride 102 Carbon Dioxide 25 Anion Gap 7.0 BUN 12 Creatinine 1.28 Est Cr Clr Drug Dosing 43.9 Est GFR ( Amer) 57.9 Est GFR (Non-Af Amer) 50.0 BUN/Creatinine Ratio 9.3 L Glucose 184 H Calcium 8.8 Magnesium 2.3 Total Bilirubin 0.5 AST 14 L ALT 22 Alkaline Phosphatase 101 Troponin I < 0.015 (0-0.045) ng/ml Total Protein 7.3 Albumin 3.6 Globulin 3.7 Albumin/Globulin Ratio 1.0 Urine Color Urine Appearance (Clear) Urine pH (4.5-7.5) Ur Specific [place] (1.000-1.030) Urine Protein (Negative) Urine Glucose (UA) (Negative) Urine Ketones (Negative) Urine Blood (Negative) Urine Nitrite (Negative) Urine Bilirubin (Negative) Urine Urobilinogen (Negative) Ur Leukocyte Esterase (Negative) COVID-19 Eval Order SARS-CoV-2 (PCR) NEGATIVE (Negative) 05/25/21 05/25/21 Range/Units 15:20 15:53 WBC 7.66 RBC 4.89 Hgb 15.5 Hct 44.7 MCV 91.4 MCH 31.7 MCHC 34.7 RDW Std Deviation 44.7 RDW Coeff of [place] 13.6 Plt Count 242 MPV 10.0 Absolute Nucleated RBC Nucleated RBC % (auto) Platelet Estimate PT (9.0-12.0) Seconds INR (0.9-1.1) APTT (21.0-31.0) Seconds PTT Ratio Sodium Potassium Chloride Carbon Dioxide Anion Gap BUN Creatinine Est Cr Clr Drug Dosing Est GFR ( Amer) Est GFR (Non-Af Amer) BUN/Creatinine Ratio Glucose Calcium Magnesium Total Bilirubin AST ALT Alkaline Phosphatase Troponin I (0-0.045) ng/ml Total Protein Albumin Globulin Albumin/Globulin Ratio Urine Color Yellow Urine Appearance Clear (Clear) Urine pH 7.0 (4.5-7.5) Ur Specific [place] 1.007 (1.000-1.030) Urine Protein Negative (Negative) Urine Glucose (UA) Negative (Negative) Urine Ketones Negative (Negative) Urine Blood Negative (Negative) Urine Nitrite Negative (Negative) Urine Bilirubin Negative (Negative) Urine Urobilinogen Negative (Negative) Ur Leukocyte Esterase Negative (Negative) COVID-19 Eval Order SARS-CoV-2 (PCR) (Negative) Administered Medications Atorvastatin Calcium (Atorvastatin 40 Mg Tab) 40 mg PO QPM [place] Stop: 06/24/21 20:59 Last Admin: 05/25/21 21:30 Dose: 40 mg Documented by: [id number] Discontinued Medications Aspirin (Aspirin 81 Mg Ectab) 243 mg PO 2030 ONE Stop: 05/25/21 20:31 Last Admin: 05/25/21 21:39 Dose: 243 mg Documented by: [id number] Clopidogrel Bisulfate (Clopidogrel Bisulfate 300 Mg Tab) 300 mg PO NOW STA Stop: 05/25/21 19:08 Last Admin: 05/25/21 19:41 Dose: 300 mg Documented by: [id number] Ioversol (Optiray 320 125ml) 120 ml IV ONCE ONE Stop: 05/25/21 16:22 Last Admin: 05/25/21 16:21 Dose: 120 ml Documented by: [id number] Imaging Data Radiologist's Impression: Chest X-Ray 05/25/21 14:52 XR chest 1V portable CLINICAL HISTORY: stroke alert COMPARISON STUDY: December 16, 2019 FINDINGS: No pneumothorax. No pleural effusion. Minimal scarring at the left base. Lung volumes are decreased with crowded lung markings. Possible linear atelectasis at the mid aspect of the right lung. Cardiomediastinal silhouette is mildly enlarged, stable since prior. Aorta is tortuous. No significant pulmonary vascular congestion.. Osseous structures: Mild degenerative changes of the spine and right shoulder. IMPRESSION: 1. Small atelectasis at the mid aspect of the right lung and at the left base. No large infiltrates or consolidative lesions. 2. Mild cardiomegaly, stable since prior. ACT 112: Negative or not required by law. The above report was generated using voice recognition software. It may contain grammatical, syntax or spelling errors. Electronically signed by: Radha Dotson DO 05/25/2021 3:[address] 05/25/21 15:05 CT head/brain wo con CLINICAL HISTORY: Stroke Like Symptoms COMPARISON STUDY: February 08, 2020. TECHNIQUE: Axial CT of the brain is performed from the vertex to the skull base. IV contrast was not administered for this examination. A dose lowering technique was utilized adhering to the principles of ALARA. CT DOSE: FINDINGS: No intra or extra-axial mass lesions are visualized. There is no CT evidence of acute cortical infarction. There is no evidence of midline shift. There is no acute hemorrhage. No acute depressed calvarial fractures are visualized. There are patchy white matter hypodensities likely on a small vessel basis. Atrophic changes of brain parenchyma is again seen and associated with ex vacuo dilatation of ventricles. There is no evidence of acute sinusitis IMPRESSION: 1. No acute intracranial hemorrhage, no midline shift or space occupying lesions. 2. Atrophic changes of brain parenchyma and chronic small vessel ischemia. ACT 112: Negative or not required by law. The above report was generated using voice recognition software. It may contain grammatical, syntax or spelling errors. Electronically signed by: Radha Dotson DO 05/25/2021 4:55 PM Head CTA 05/25/21 15:05 CT angio head w con CLINICAL HISTORY: Stroke Like Symptoms TECHNIQUE: CT angiography of the head was performed in a dynamic helical fashion during intravenous administration of 120 cc of Optiray. MIP imaging was performed. A dose lowering technique was utilized adhering to the principles of ALARA. CT DOSE: COMPARISON STUDY: No previous studies for comparison. FINDINGS: Concentric calcified plaques are seen within supraclinoid aspect of right and left internal carotid artery and associated with few areas above 50% stenosis which is seen bilaterally. Nodularity and approximately 50% stenosis of the M1 segment of the left middle cerebral artery seen. Left M2 segment also shows lum inal irregularity. Bilateral anterior communicating arteries and anterior cerebral arteries are normally opacified. Proximal aspect of the basilar artery is narrowed to approximately 50% (5/76). Focal area of above 50% stenosis within P1 segment of the right posterior cerebral artery (5/110). Distal portion of the posterior right cerebral artery is normally opacified. origin of the left posterior cerebral artery is seen without evidence of focal occlusion or significant stenosis. IMPRESSION: 1. Atherosclerotic plaques at distal aspect of bilateral internal carotid artery with approximately 50% stenosis. 2. 50% stenosis of the M1 segment of the left middle cerebral artery and nodularity/luminal irregularity of the M2 segment of the left MCA. Findings will be sent to emergency Department. 3. The above 50% stenosis of the P1 segment of the right [employer]. 4. origin of the left [employer], patent. ACT 112: Negative or not required by law. The above report was generated using voice recognition software. It may contain grammatical, syntax or spelling errors. Electronically signed by: Radha Dotson DO 05/25/2021 5:21 PM Neck CTA 05/25/21 15:05 CT angio neck with con CLINICAL HISTORY: Stroke Like Symptoms COMPARISON STUDY: No previous studies for comparison. Correlation is made with contrast-enhanced CT of the brain performed on February 08, 2020 TECHNIQUE: CT angiography was performed from the aortic arch to the skull base. MIP imaging was performed. The patient was scanned in a dynamic helical fashion during intravenous administration of 120 cc of Optiray. A dose lowering technique was utilized adhering to the principles of ALARA. CT DOSE: 1099.21 mGy.cm Technique: CT angiogram of the carotid and vertebral arteries was obtained using intravenous contrast and 3-D reconstruction. NASCET criteria was utilized. Findings: The right carotid revealed no evidence of aneurysm and no evidence of disse ction. There is no evidence of hemodynamic significant stenosis. The left carotid revealed no evidence of hemodynamic significant stenosis. There is no evidence of aneurysm. There is no evidence of dissection. Narrowing of the V4 segment of the left vertebral artery seen with complete occlusion within its distal aspect (6/225). Right vertebral artery is normally opacified without dissection, aneurysmal dilatation or hemodynamically significant stenosis. 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 Report will be sent to emergency Department. Right and left carotid arteries as well as right vertebral artery are normally opacified. ACT 112: Negative or not required by law. The above report was generated using voice recognition software. It may contain grammatical, syntax or spelling errors. Electronically signed by: Radha Dotson DO 05/25/2021 5:04 PM Discharge Plan Visit Data Chief Complaint: Stroke/CVA Symptoms Stated Complaint: WEAKNESS L SIDE/DROOPY L EYE & FACE ED Provider: Jose Rueda Discharge Problem: Acute left-sided weakness, Stroke Patient Disposition: Admitted As Inpatient Discharge Instructions Interventions: ED Discharge Assessment Last Done: 05/25/21 19:57
[2021-05-25 15:43] LABS: Hematocrit (blood only) 44.7 % (42-52); Hemoglobin 15.5 g/dL (14.0-18.0); Mean Corpuscular Hemoglobin 31.7 pg (25-34); Mean Corpuscular Hgb Conc 34.7 g/dL (32-36); Mean Corpuscular Volume 91.4 fL (80-100); Platelet Count 242 K/uL (130-400); RDW Coefficient of Variation 13.6 % (11.5-14.5); RDW Standard Deviation 44.7 fL (36.4-46.3); Red Blood Count 4.89 M/uL (4.7-6.1); White Blood Count 7.66 K/uL (4.8-10.8)
[2021-05-25 15:53] LABS: Partial Thromboplastin Time 25.9 Seconds (21.0-31.0); Prothrombin Time 10.2 Seconds (9.0-12.0)
--- NOTE | 2021-05-25 15:55 | XRay Report ---
XR chest 1V portable CLINICAL HISTORY: stroke alert COMPARISON STUDY: December 16, 2019 FINDINGS: No pneumothorax. No pleural effusion. Minimal scarring at the left base. Lung volumes are decreased with crowded lung markings. Possible li near atelectasis at the mid aspect of the right lung. Cardiomediastinal silhouette is mildly enlarged, stable since prior. Aorta is tortuous. No significant pulmonary vascular congestion.. Osseous structures: Mild degenerative changes of the spine and right shoulder. IMPRESSION: 1. Small atelectasis at the mid aspect of the right lung and at the left base. No large infiltrates or consolidative lesions. 2. Mild cardiomegaly, stable since prior. ACT 112: Negative or not required by law. The above report was generated using voice recognition software. It may contain grammatical, syntax o r spelling errors. Electronically signed by: Radha Dotson DO 05/25/2021 3:54 PM
[2021-05-25 15:59] LABS: Alanine Aminotransferase 22 U/L (12-78); Albumin Level 3.6 gm/dl (3.4-5.0); Aspartate Aminotransferase 14 U/L (15-37); BUN Creatinine Ratio 9.3 (10-20); Blood Urea Nitrogen 12 mg/dl (7-18); Calcium 8.8 mg/dl (8.5-10.1); Carbon Dioxide 25 mmol/L (21-32); Chloride 102 mmol/L (98-107); Creatinine Clr Calc Pharmacy 43.9 ml/min; Est GFR (African American) 57.9 ml/min; Glucose 184 mg/dl (70-99); Magnesium 2.3 mg/dl (1.8-2.4); Potassium 4.2 mmol/L (3.5-5.1); Sodium 134 mmol/L (136-145)
[2021-05-25 16:04] LABS: Alkaline Phosphatase 101 U/L (45-117); Bilirubin,Total 0.5 mg/dl (0.2-1); Globulin 3.7 gm/dl (2.5-4.0); Total Protein 7.3 gm/dl (6.4-8.2); Troponin I < 0.015 ng/ml (0-0.045)
[2021-05-25] MEDS ORDERED: OPTIRAY 320 125ml IV ONE (16:21)
[2021-05-25 16:24] LABS: Appearance Urine Clear (Clear); Bilirubin Urine Negative (Negative); Blood Urine Negative (Negative); Color Urine Yellow; Glucose Urine UA Negative (Negative); Ketones Urine Negative (Negative); Leukocyte Esterase Urine Negative (Negative); Nitrite Urine Negative (Negative); Protein Urine Negative (Negative); Specific Gravity Urine 1.007 (1.000-1.030); Urobilinogen Urine Negative (Negative)
--- NOTE | 2021-05-25 16:57 | CT Scan Report ---
CT head/brain wo con CLINICAL HISTORY: Stroke Like Symptoms COMPARISON STUDY: February 08, 2020. TECHNIQUE: Axial CT of the brain is performed from the vertex to the skull base. IV contrast was not administered for this examination. A dose lowering technique was utilized adhering to the principles of ALARA. CT DOSE: FINDINGS: No intra or extra-axial mass lesions are visualized. There is no CT evidence of acute cortical infarc tion. There is no evidence of midline shift. There is no acute hemorrhage. No acute depressed calvar ial fractures are visualized. There are patchy white matter hypodensities likely on a small vessel basis. Atrophic changes of brain parenchyma is again seen and associated with ex vacuo dilatation of ventric les. There is no evidence of acute sinusitis IMPRESSION: 1. No acute intracranial hemorrhage, no midline shift or space occupying lesions. 2. Atrophic changes of brain parenchyma and chronic small vessel ischemia. ACT 112: Negative or not required by law. The above report was generated using voice recognition software. It may contain grammatical, syntax o r spelling errors. Electronically signed by: Radha Dotson DO 05/25/2021 4:55 PM
--- NOTE | 2021-05-25 17:06 | CT Scan Report ---
CT angio neck with con CLINICAL HISTORY: Stroke Like Symptoms COMPARISON STUDY: No previous studies for comparison. Correlation is made with contrast-enhanced CT of the brain performed on February 08, 2020 TECHNIQUE: CT angiography was performed from the aortic arch to the skull base. MIP imaging was perfo rmed. The patient was scanned in a dynamic helical fashion during intravenous administration of 120 c c of Optiray. A dose lowering technique was utilized adhering to the principles of ALARA. CT DOSE: 1099.21 mGy.cm Technique: CT angiogram of the carotid and vertebral arteries was obtained using intravenous contrast and 3-D reconstruction. NASCET criteria was utilized. Findings: The right carotid revealed no evidence of aneurysm and no evidence of dissection. There is no evidenc e of hemodynamic significant stenosis. The left carotid revealed no evidence of hemodynamic significant stenosis. There is no evidence of an eurysm. There is no evidence of dissection. Narrowing of the V4 segment of the left vertebral artery seen with complete occlusion within its dist al aspect (6/225). Right vertebral artery is normally opacified without dissection, aneurysmal dilata tion or hemodynamically significant stenosis. 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 Report will be sent to emergency Department. Right and left carotid arteries as well as right vertebral artery are normally opacified. ACT 112: Negative or not required by law. The above report was generated using voice recognition software. It may contain grammatical, syntax o r spelling errors. Electronically signed by: Radha Dotson DO 05/25/2021 5:04 PM
--- NOTE | 2021-05-25 17:23 | CT Scan Report ---
CT angio head w con CLINICAL HISTORY: Stroke Like Symptoms TECHNIQUE: CT angiography of the head was performed in a dynamic helical fashion during intravenous a dministration of 120 cc of Optiray. MIP imaging was performed. A dose lowering technique was utilized adhering to the principles of ALARA. CT DOSE: COMPARISON STUDY: No previous studies for comparison. FINDINGS: Concentric calcified plaques are seen within supraclinoid aspect of right and left internal carotid a rtery and associated with few areas above 50% stenosis which is seen bilaterally. Nodularity and appr oximately 50% stenosis of the M1 segment of the left middle cerebral artery seen. Left M2 segment als o shows luminal irregularity. Bilateral anterior communicating arteries and anterior cerebral arteries are normally opacified. Proximal aspect of the basilar artery is narrowed to approximately 50% (5/76). Focal area of above 50 % stenosis within P1 segment of the right posterior cerebral artery (5/110). Distal portion of the po sterior right cerebral artery is normally opacified. origin of the left posterior cerebral artery is seen without evidence of focal occlusion or sig nificant stenosis. IMPRESSION: 1. Atherosclerotic plaques at distal aspect of bilateral internal carotid artery with approximately 50% stenosis. 2. 50% stenosis of the M1 segment of the left middle cerebral artery and nodularity/luminal irregula rity of the M2 segment of the left MCA. Findings will be sent to emergency Department. 3. The above 50% stenosis of the P1 segment of the right [employer]. 4. origin of the left [employer], patent. ACT 112: Negative or not required by law. The above report was generated using voice recognition software. It may contain grammatical, syntax o r spelling errors. Electronically signed by: Radha Dotson DO 05/25/2021 5:21 PM
--- NOTE | 2021-05-25 18:15 | History & Physical Report ---
Date of Service May 25, 2021 Assessment & Plan (1) Stroke-like symptoms: Plan: Stroke without tPA order set Patient is claustrophobic therefore refusing MRI Suspect patient has had a stroke without this given severity of symptoms and will manage as such Allow permissive hypertension up to sBP 200, hold his usual amlodipine ASA 243mg (already had 81mg this morning) and Clopidogrel 300mg PO now, continue 81mg aspiring and 75mg clopidogrel in AM for 21 days then clopidogrel alone (previously GI bleed on aspirin) Monitor CBC weekly while on aspirin due to history of GI bleed Start atorvastatin 40mg PO QPM Lipid panel and HbA1C in Am Consult neurology PT/OT/speech (2) CAD (coronary artery disease): Plan: Start antiplatelets as above. Would favor clopidogrel moving forward. 40% ostial LMCA disease on 12/10/2002 cardiac catheterization Previously declined antiplatelets and statin therapy (3) Benign prostatic hyperplasia with urinary obstruction: Plan: No current urinary obstruction Continue Rapaflo 8mg PO HS (4) Hypertension: Plan: Allow permissive hypertension as above Hold amlodipine Continue metoprolol to avoid rebound tachycardia (5) Aortic stenosis: Plan: Non-severe per recent cardiology note, under surveillance (6) Chronic kidney disease, stage 3: Plan: At baseline Monitor with BMP in AM (7) Diabetes mellitus type II, controlled: Plan: HbA1C with Am labs. 6.9 in September Diet controlled Insulin correction factor with BSG ACHS while here Plan: VTE Prophylaxis - Lovenox 40 mg SQ daily Diet - passed dysphagia screen, heart healthy, T2DM diet Disposition - observation status to med/tele Admission and Anticipated Discharge Date Admission Date: May 25, 2021 History of Present Illness Chief Complaint: Stroke-like symptoms Primary Care Provider: Bolivar Chavarria MD Arian Gamez is an 86 year old male who presents to the ER with left sided weakness that started yesterday afternoon. No facial droop, dysphagia, change in vision, speech or hearing. No prior stroke in the past. Initially started with numbness in his left forearm and weakness while driving. This did not resolve and he also noticed his toe starting to drag. He decided to take an aspirin when he got home. He has previously avoided antiplatelets despite known coronary artery disease due to prior history of GI bleed although does report this was many years ago. He denies any prior history of stroke. He took another aspirin this morning but cannot remember the dose. He came to the ER only after the insistence of his daughter. Unfortunately his had a stroke and he cared for her for many years before she . In the ER CT angiogram shows multiple intracranial and left vertebral plaque disease. He denies any dizziness or vertigo. He was referred to medicine for admission and ongoing management of presumed stroke. Allergies Allergy/AdvReac Type Severity Reaction Status Date / Time Sulfa (Sulfonamide Allergy Severe EDEMA Verified 05/25/21 16:31 Antibiotics) aspirin AdvReac Intermediate abdominal Verified 05/25/21 16:31 pain;Visual Disturbance escitalopram [From Lexapro] AdvReac Intermediate Confusion Verified 05/25/21 16:31 Home Medications Medication Instructions Recorded Confirmed Type blood-glucose meter (OneTouch #1 ea 04/19/19 05/23/21 History Ultra2 Meter) lancets (DocbookMDTouch UltraSoft #50 ea 04/19/19 05/23/21 History Lancets) cholecalciferol (vitamin D3) 125 125 mcg PO QAM 12/16/19 05/25/21 History mcg (5,000 unit) tablet (Vitamin D3) blood sugar diagnostic (OneTouch #50 ea 11/12/20 05/23/21 Rx Ultra Blue Test Strip) albuterol sulfate 90 mcg/actuation See Rx Instructions INH QID PRN 02/10/21 05/25/21 Rx aerosol inhaler (Ventolin HFA) #18 g amlodipine 5 mg tablet (Norvasc) 5 mg PO QAM 05/25/21 05/25/21 History diclofenac sodium 1 % topical gel 4 g TOP QID PRN 05/25/21 05/25/21 History (Voltaren Arthritis Pain) finasteride 5 mg tablet (Proscar) 5 mg PO QAM 05/25/21 05/25/21 History metoprolol succinate 50 mg 50 mg PO QAM 05/25/21 05/25/21 History tablet,extended release 24 hr (Toprol XL) metronidazole 0.75 % topical gel 1 applic TOPICAL BID PRN 05/25/21 05/25/21 History (Rosadan) nitroglycerin 0.4 mg sublingual 0.4 mg SUBLINGUAL Q5M PRN 05/25/21 05/25/21 History tablet (Nitrostat) silodosin 8 mg capsule (Rapaflo) 8 mg PO HS 05/25/21 05/25/21 History Past Med/Surg History Medical History Aortic stenosis Asthma, mild persistent Benign prostatic hyperplasia with urinary obstruction CAD (coronary artery disease) Carpal tunnel syndrome of right wrist Cervical disc disease Cervical radiculopathy Chronic kidney disease, stage 3 Depression with anxiety Diabetes mellitus type II, controlled Generalized osteoarthritis Gout H/O Doppler echocardiogram Hypertension Lumbar radiculopathy Ocular migraine Polyneuropathy Vitamin D deficiency Surgical History S/P partial gastrectomy Family History Mother Diabetes Sister Diabetes Father Denies family history of Ovarian cancer Prostate cancer Coronary heart disease Myocardial infarction Breast cancer Colorectal cancer Social History Smoking Status: Former smoker Age Started Using Tobacco: 17; Age Quit Using Tobacco: 29; packs per day: 0.5; Years Smoked: 12; Cigarettes Per Day: 1 PPD; Smoking End Date: 1969; Number of Years Since Quit: 55; Second Hand Exposure: No; Do You Dip or Chew Tobacco: No; Hx Alcohol Use: No Hx Substance Use: No Preferred Language: Japanese Communication Ability: Effective Visual Impairment: No Limitations Hearing Ability: Use of Hearing Aid Client Relationship Executive Required: No Beliefs That Will Affect Care: None marital status: Current Living Situation: Alone current occupational status: retired Other Information That Helps Us Care for You: No Feels Safe at Home: Yes Safety Concerns: Feels Safe At This Time Childhood Exposure to Second-Hand Smoke: No caffeine: Yes during the past year weight has: remained stable Dental Care, Regularly: No Physical Activity Frequency: Does not Exercise Seatbelt Use: always Sunscreen Use: No Assistive Devices: Brace/Splint/Immobilizer, Denture - Upper, Denture - Lower, Glasses, Hearing Aid - Left and Hearing Aid - Right Review of Systems Review of Systems: All systems reviewed & are unremarkable except as noted in HPI & below Physical Exam Constitutional: WD/WN, vitals as above no acute distress Eyes: PERRL, conjunctivae normal, anicteric sclerae mild drooping of left eyelid, reportedly chronic ENMT: external ear and nose normal, oropharynx normal Neck: trachea midline, no thyromegaly Respiratory: normal respiratory effort, lungs clear to auscultation Cardiovascular: RRR, no murmur, no edema Extremities: normal capillary refill; no calf tenderness and no pedal edema Gastrointestinal (Abdomen): normal bowel sounds, soft, nontender, no hepatosplenomegaly Skin: no rashes, warm and dry Neurologic: moves all extremities, + focal motor deficit (left sided weakness, see below) and awake; not confused Speech / Cognition: normal speech Motor/Sensory: + pronator drift (left); no sensory deficit Cranial Nerves: PERRL, EOM intact bilaterally, normal facial strength, tongue midline, able to rotate head bilaterally, able to elevate shoulders bilaterally, no nystagmus and symmetric palate elevation Coordination: + abnormal [id number] test (worse on left) Left upper and lower limb weakness, no right sided weakness. LUE: shoulder abduct 3/5, elbow flex/ext 4/5, environmental engineering manager strength 4+/5 LLE: Left hip flex 4/5, ext 5/5, knee flex/ext 4/5 ankle plantarflex 3/5, dorsiflex 4/5 Reflexes: knee increased on left side, otherwise equal Psychiatric: A+Ox3, euthymic affect Results & Data Results & Data ([facility]) Vital Signs (Past 12 Hours) Vital Signs Temp Pulse Pulse Resp BP BP Pulse Ox 05/25/21 15:51 71 18 183/93 H 97 05/25/21 14:29 66 20 168/89 H 98 05/25/21 14:27 64 16 167/89 H 98 05/25/21 13:53 36.5 C 73 18 180/87 H 98 Laboratory Results Abnormal lab results 05/25/21 Range/Units 15:20 Sodium 134 L (136-145) mmol/L BUN/Creatinine Ratio 9.3 L (10-20) Glucose 184 H (70-99) mg/dl AST 14 L (15-37) U/L Diagnostic Findings CT head/brain wo con CLINICAL HISTORY: Stroke Like Symptoms COMPARISON STUDY: February 08, 2020. TECHNIQUE: Axial CT of the brain is performed from the vertex to the skull base. IV contrast was not administered for this examination. A dose lowering technique was utilized adhering to the principles of ALARA. CT DOSE: FINDINGS: No intra or extra-axial mass lesions are visualized. There is no CT evidence of acute cortical infarction. There is no evidence of midline shift. There is no acute hemorrhage. No acute depressed calvarial fractures are visualized. There are patchy white matter hypodensities likely on a small vessel basis. Atrophic changes of brain parenchyma is again seen and associated with ex vacuo dilatation of ventricles. There is no evidence of acute sinusitis IMPRESSION: 1. No acute intracranial hemorrhage, no midline shift or space occupying lesions. 2. Atrophic changes of brain parenchyma and chronic small vessel ischemia. CT angio head w con CLINICAL HISTORY: Stroke Like Symptoms TECHNIQUE: CT angiography of the head was performed in a dynamic helical fashion during intravenous administration of 120 cc of Optiray. MIP imaging was performed. A dose lowering technique was utilized adhering to the principles of ALARA. CT DOSE: COMPARISON STUDY: No previous studies for comparison. FINDINGS: Concentric calcified plaques are seen within supraclinoid aspect of right and left internal carotid artery and associated with few areas above 50% stenosis which is seen bilaterally. Nodularity and approximately 50% stenosis of the M1 segment of the left middle cerebral artery seen. Left M2 segment also shows luminal irregularity. Bilateral anterior communicating arteries and anterior cerebral arteries are normally opacified. Proximal aspect of the basilar artery is narrowed to approximately 50% (5/76). Focal area of above 50% stenosis within P1 segment of the right posterior cerebral artery (5/110). Distal portion of the posterior right cerebral artery is normally opacified. origin of the left posterior cerebral artery is seen without evidence of focal occlusion or significant stenosis. IMPRESSION: 1. Atherosclerotic plaques at distal aspect of bilateral internal carotid artery with approximately 50% stenosis. 2. 50% stenosis of the M1 segment of the left middle cerebral artery and nodularity/luminal irregularity of the M2 segment of the left MCA. Findings will be sent to emergency Department. 3. The above 50% stenosis of the P1 segment of the right [employer]. 4. origin of the left [employer], patent. CT angio neck with con CLINICAL HISTORY: Stroke Like Symptoms COMPARISON STUDY: No previous studies for comparison. Correlation is made with contrast-enhanced CT of the brain performed on February 08, 2020 TECHNIQUE: CT angiography was performed from the aortic arch to the skull base. MIP imaging was performed. The patient was scanned in a dynamic helical fashion during intravenous administration of 120 cc of Optiray. A dose lowering technique was utilized adhering to the principles of ALARA. CT DOSE: 1099.21 mGy.cm Technique: CT angiogram of the carotid and vertebral arteries was obtained using intravenous contrast and 3-D reconstruction. NASCET criteria was utilized. Findings: The right carotid revealed no evidence of aneurysm and no evidence of dissection. There is no evidence of hemodynamic significant stenosis. The left carotid revealed no evidence of hemodynamic significant stenosis. There is no evidence of aneurysm. There is no evidence of dissection. Narrowing of the V4 segment of the left vertebral artery seen with complete occlusion within its distal aspect (6/225). Right vertebral artery is normally opacified without dissection, aneurysmal dilatation or hemodynamically significant stenosis. 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 Report will be sent to emergency Department. Right and left carotid arteries as well as right vertebral artery are normally opacified. Medications Administered ER Medications given: None ECG Rate (beats per minute): 68 Rhythm: normal sinus Findings: + LAFB; no acute ischemic change Comparison ECG Date: from (December 16, 2019) Change: no significant change Code Status & VTE Plan Code Status DNR/DNI as discussed with the patient VTE Prophylaxis Plan VTE Prophylaxis will be ordered: Yes PG Care Time/CCT Total # of Minutes Spent Total Time Spent with Patient: Total time spent is greater than 50% in coordination of care (as documented) at patient's floor/unit and/or counseling patient: Coding Level of Care Code INT OBSERVATION CARE 70M LVL 3 Diagnoses CAD (coronary artery disease) I25.10 Stroke-like symptoms R29.90 Benign prostatic hyperplasia with urinary obstruction N40.1; N13.8 Hypertension I10 Aortic stenosis I35.0 Chronic kidney disease, stage 3 N18.3 Diabetes mellitus type II, controlled E11.9
[2021-05-25] MEDS ORDERED: CLOPIDOGREL BISULFATE 300 MG TAB PO STA (19:07)
[2021-05-25] MEDS ORDERED: ASPIRIN 81 MG ECTAB PO ONE (20:30)
[2021-05-25] MEDS ORDERED: metroNIDAZOLE 0.75% TOPICAL GEL 45 GM TUBE TOP PRN (20:37)
[2021-05-25] MEDS ORDERED: DICLOFENAC SOD 1% GEL 100 GM TUBE EXT PRN (20:37)
[2021-05-25] MEDS ORDERED: PHARMACIST DISCHARGE MED REC CONSULT PRN (20:37)
[2021-05-25] MEDS ORDERED: ONDANSETRON INJ 2 MG/ML 2 ML VIAL IV PRN (20:37)
[2021-05-25] MEDS ORDERED: POLYETHYLENE (MIRALAX) 17 GM PACK PO PRN (20:37)
[2021-05-25] MEDS ORDERED: ALUMINUM/MAGNESIUM SUSP 30 ML UDC PO PRN (20:37)
[2021-05-25] MEDS ORDERED: ACETAMINOPHEN 325 MG TAB PO PRN (20:37)
--- NOTE | 2021-05-25 20:49 | Electrocardiogram Report ---
Test Reason : Blood Pressure : / mmHG Vent. Rate : 068 BPM Atrial Rate : 068 BPM P-R Int : 202 ms QRS Dur : 100 ms QT Int : 404 ms P-R-T Axes : 044 -51 025 degrees QTc Int : 429 ms Normal sinus rhythm Left anterior fascicular block Abnormal ECG When compared with ECG of 16-DEC-2019 15:09, No significant change was found Confirmed by Isaias Fiore ([id number]) on 05/25/2021 8:49:19 PM Referred By: Confirmed By:Isaias Fiore
[2021-05-25] MEDS ORDERED: ATORVASTATIN 40 MG TAB PO SCH (21:00)
[2021-05-25] MEDS ORDERED: GLUCAGON FOR INJ 1 MG VIAL SQ PRN (22:41)
[2021-05-25] MEDS ORDERED: CARBOHYDRATES FOR HYPOGLYCEMIA PO PRN (22:41)
[2021-05-25] MEDS ORDERED: DEXTROSE 50% 50 ML SYRINGE IV PRN (22:41)
[2021-05-25] MEDS ORDERED: GLUCOSE 40% GEL 15 GM TUBE PO PRN (22:41)
[2021-05-25] MEDS ORDERED: GLUCOSE 10 TABS/TUBE PO PRN (22:41)
[2021-05-26 07:45] LABS: Basophils # (auto) 0.08 K/uL (0-0.2); Basophils % (auto) 0.9 %; Eosinophils # (auto) 0.55 K/uL (0-0.5); Eosinophils % (auto) 6.4 %; Hematocrit (blood only) 46.1 % (42-52); Hemoglobin 16.2 g/dL (14.0-18.0); Immature Granulocytes # (auto) 0.01 K/uL (0.00-0.02); Immature Granulocytes % (auto) 0.1 %; Lymphocytes % (auto) 19.8 %; Mean Corpuscular Hemoglobin 31.9 pg (25-34); Mean Corpuscular Hgb Conc 35.1 g/dL (32-36); Mean Corpuscular Volume 90.7 fL (80-100); Monocytes # (auto) 0.75 K/uL (0.11-0.59); Monocytes % (auto) 8.7 %; Neutrophils # (auto) 5.49 K/uL (1.4-6.5); Neutrophils % (auto) 64.1 %; Platelet Count 245 K/uL (130-400); RDW Coefficient of Variation 13.6 % (11.5-14.5); RDW Standard Deviation 44.3 fL (36.4-46.3); Red Blood Count 5.08 M/uL (4.7-6.1); White Blood Count 8.58 K/uL (4.8-10.8)
[2021-05-26 08:11] LABS: BUN Creatinine Ratio 9.6 (10-20); Calcium 9.4 mg/dl (8.5-10.1); Creatinine Clr Calc Pharmacy 39.7 ml/min; Est GFR (African American) 57.4 ml/min; Est GFR (Non-African American) 49.5 ml/min; Potassium 4.2 mmol/L (3.5-5.1)
[2021-05-26 08:20] LABS: Estimated Average Glucose 151 mg/dl; Hemoglobin A1C 6.9 % (4.5-5.6)
[2021-05-26] MEDS: INSULIN ASPART 100 UNITS/ML 3 ML PEN SC SCH ×2 (08:44→11:24)
[2021-05-26] MEDS ORDERED: METOPROLOL SUCC 50MG EXT REL TAB PO SCH (09:00)
[2021-05-26] MEDS ORDERED: CLOPIDOGREL BISULFATE 75 MG TAB PO SCH (09:00)
[2021-05-26] MEDS ORDERED: CHOLECALCIFEROL 1,000 UNITS 25 MCG TAB PO SCH (09:00)
[2021-05-26] MEDS ORDERED: FINASTERIDE 5 MG TAB PO SCH (09:00)
[2021-05-26] MEDS ORDERED: ENOXAPARIN INJ 40 MG/0.4 ML SYR SQ SCH (09:00)
[2021-05-26] MEDS ORDERED: ASPIRIN 81 MG ECTAB PO SCH (09:00)
--- NOTE | 2021-05-26 10:54 | Neurology Consultation ---
Date of Consultation May 26, 2021 Assessment & Plan (1) Acute left-sided weakness: (2) Hypertension: (3) Carotid stenosis, bilateral: (4) Ocular migraine: (5) Polyneuropathy: patient had an episode starting May 24, lasting about 24 hours, consisting of some left upper extremity greater than lower extremity weakness. He had some left upper extremity numbness for an hour when this 1st started and that resolved. Clinically, he is back to baseline with no focal neurologic deficits. Overall, I suspected TIA but a small stroke cannot be excluded. Patient refuses an MRI. The patient has carotid intercerebral arterial stenosis as noted on CT angiography. This puts him at increased risk for stroke. Diabetes and hypertension are risk factors for stroke as well. The patient has significant hypertension, which may be leading to vasospasm. He has ocular auras without the headache for relatively frequent basis. The patient has an underlying polyneuropathy of a mild nature which likely gives him some sensory ataxia. He likely has some mild memory dysfunction as well. Recommendations: 1. since the patient refuses MRI of the brain, consider repeating CT scan of the head without contrast to see if a small stroke is visible compared to admission. 2. control blood pressure as you are doing, aiming for a mean arterial pressure of approximately 100. 3. Control glucose as best as possible, aiming to lower the hemoglobin A1c to 6.5 or less. 4. the patient has excellent lipid parameters. Given his advanced age, he would not be a high dose statin candidate ( increases intercerebral hemorrhage risk). A regular statin dose is reasonable. 5. discontinue aspirin. 6. Continue with clopidogrel 75 mg daily. I have no further neurologic recommendations to make at this time. He could be followed , in Neurology, as an outpatient in 4-6 weeks, if needed. Overall, I spent a total of 110 minutes with this case including review of records, review of CT films, direct evaluation the patient at bedside, and discussion of the case with the patient at bedside, and Dr. Hair, including differential diagnosis and treatment options. History of Present Illness Reason for Consultation: Patient is an 86-year-old, who I was asked to see at the request of Dr. Castillo, for neurologic consultation regarding possible stroke Requesting Physician: Dr. Castillo Attending Physician: Hany aHir History of Present Illness this patient has a history of coronary artery disease with aortic stenosis, type 2 diabetes, hypertension, polyneuropathy, likely secondary to diabetes and history of GI bleed on aspirin 4-5 years ago. Patient was driving home on the 24 of May after going to the grocery store and had the sudden onset of numbness in his left upper extremity from the elbow to the fingers. He felt that the hand was a little bit weak as well. He drove home and put the groceries away using mostly his right arm. He then mode the grass and ate supper. He watched the football game and went to sleep. The numbness lasted about an hour but the weakness in the right upper extremity was still present. He noticed when he got home, that he had some weakness in his toes on left. He did not have any additional numbness or dysesthesias, vision problems, speech problems, or mentation issues. The next morning on the he continued to have the weakness. He took 1 regular strength aspirin tablet. He told his daughter she came over, they ate dinner and he went to the emergency room. He arrived to the emergency room on May 25 at 1353, with a temperature of 36.5, pulse 73 and regular, respiratory rate 18, blood pressure 180/87, and O2 saturation 98%. He had some right upper extremity weakness on exam. CBC was unremarkable. Chem profile was noted for a glucose of 184 and urinalysis was unremarkable. CT scan of the head was unremarkable. Chest x-ray showed mild cardiomegaly Which was stable, and some atelectasis. CT angiography of the head revealed 50% stenosis in the distal ICAs bilaterally as well as the left M1 segment and the right P1 segment. CT angiography of the neck was unremarkable The patient refused an MRI of the brain. He is claustrophobic and does not want to do it. This morning, the patient has no weakness and feels back to baseline. He wants to go home. Blood pressure is 155/80 this morning. Today Chem profile is unremarkable and glucose is 147. Hemoglobin A1c is 6.9. Triglycerides are 139 and total cholesterol 156. Additional history suggested the patient has had episodes of what seems to be lightheadedness (not vertigo ) lasting 30 seconds on occasion. His last episode was 1 week ago. Since age 69 he has had episodes of circles and flashes of his vision in both eyes lasting 20 minutes up to twice a day. He does not have a headache before, during, or after. These episodes may have gotten worse after his cataract surgery in to 10 years ago. Allergies Allergy/AdvReac Type Severity Reaction Status Date / Time Sulfa (Sulfonamide Allergy Severe EDEMA Verified 05/25/21 16:31 Antibiotics) aspirin AdvReac Intermediate abdominal Verified 05/25/21 16:31 pain;Visual Disturbance escitalopram [From Lexapro] AdvReac Intermediate Confusion Verified 05/25/21 16:31 Home Medications Medication Instructions Recorded Confirmed Type blood-glucose meter (OneTouch #1 ea 04/19/19 05/23/21 History Ultra2 Meter) lancets (OneTouch UltraSoft #50 ea 04/19/19 05/23/21 History Lancets) cholecalciferol (vitamin D3) 125 125 mcg PO QAM 12/16/19 05/25/21 History mcg (5,000 unit) tablet (Vitamin D3) blood sugar diagnostic (OneTouch #50 ea 11/12/20 05/23/21 Rx Ultra Blue Test Strip) albuterol sulfate 90 mcg/actuation See Rx Instructions INH QID PRN 02/10/21 05/25/21 Rx aerosol inhaler (Ventolin HFA) #18 g amlodipine 5 mg tablet (Norvasc) 5 mg PO QAM 05/25/21 05/25/21 History diclofenac sodium 1 % topical gel 4 g TOP QID PRN 05/25/21 05/25/21 History (Voltaren Arthritis Pain) finasteride 5 mg tablet (Proscar) 5 mg PO QAM 05/25/21 05/25/21 History metoprolol succinate 50 mg 50 mg PO QAM 05/25/21 05/25/21 History tablet,extended release 24 hr (Toprol XL) metronidazole 0.75 % topical gel 1 applic TOPICAL BID PRN 05/25/21 05/25/21 History (Rosadan) nitroglycerin 0.4 mg sublingual 0.4 mg SUBLINGUAL Q5M PRN 05/25/21 05/25/21 History tablet (Nitrostat) silodosin 8 mg capsule (Rapaflo) 8 mg PO HS 05/25/21 05/25/21 History Patient History Medical History Aortic stenosis Asthma, mild persistent Benign prostatic hyperplasia with urinary obstruction CAD (coronary artery disease) Carpal tunnel syndrome of right wrist Cervical disc disease Cervical radiculopathy Chronic kidney disease, stage 3 Depression with anxiety Diabetes mellitus type II, controlled Generalized osteoarthritis Gout H/O Doppler echocardiogram Hypertension Lumbar radiculopathy Ocular migraine Polyneuropathy Vitamin D deficiency Surgical History S/P partial gastrectomy Family History Mother , age 66 with diabetes Diabetes Sister Diabetes Parkinson disease Father , age 85 Heart disease Brother Heart disease Denies family history of Ovarian cancer Prostate cancer Coronary heart disease Myocardial infarction Breast cancer Colorectal cancer Social History Smoking Status: Former smoker Age Started Using Tobacco: 17; Age Quit Using Tobacco: 29; packs per day: 0.5; Years Smoked: 12; Cigarettes Per Day: 1 PPD; Smoking End Date: 1969; Number of Years Since Quit: 55; Second Hand Exposure: No; Do You Dip or Chew Tobacco: No; Hx Alcohol Use: No Hx Substance Use: No Preferred Language: Afghan Communication Ability: Effective Visual Impairment: No Limitations Hearing Ability: Use of Hearing Aid Calender Feeder Required: No Beliefs That Will Affect Care: None marital status: Current Living Situation: Alone current occupational status: retired 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 Other Information That Helps Us Care for You: No Feels Safe at Home: Yes Safety Concerns: Feels Safe At This Time Childhood Exposure to Second-Hand Smoke: No caffeine: Yes during the past year weight has: remained stable Dental Care, Regularly: No Physical Activity Frequency: Does not Exercise Seatbelt Use: always Sunscreen Use: No Assistive Devices: Denture - Upper, Denture - Lower, Glasses, Hearing Aid - Left and Hearing Aid - Right Review of Systems Constitutional: no fever, no fatigue and no weakness Eyes: no diplopia, no eye pain and no worsening vision Ear, Nose, Mouth, Throat: no ear pain, no tinnitus, no hearing loss, no dizziness, no snoring, no hoarseness and no dysphagia Respiratory: no cough and no dyspnea Cardiovascular: no chest pain, no palpitations and no lightheadedness Gastrointestinal: no abdominal pain, no nausea and no vomiting Musculoskeletal: no back pain, no neck pain, no radicular pain, no joint pain and no myalgia Integumentary: no rash and no lesions Neurologic: no gait abnormality, no localized weakness, no generalized weakness, no tingling, no numbness, no tremor(s), no abnormal movements, no headache(s), no abnormal speech, no confusion and no memory loss Psychiatric: no depression, no irritability, no anxiety, no difficulty concentrating, no confusion and no hallucinations Endocrine: no fatigue and no flushing Hematologic / Lymphatic: no easy bleeding and no easy bruising Allergy / Immunological: no urticaria and no problem reported Exam (Neuro) Physical Exam: The patient is right-handed. The patient is awake, alert, and attentive. Speech is normal without any aphasia or dysarthria. The patient can name objects, repeat phrases, and has normal spontaneous speech. Mentation and thought processes are intact, with orientation to person, place and time, and normal fund of knowledge. Attention and concentration are normal. Mood and affect are normal and appropriate. General appearance and grooming are normal. Short and long-term memory are suspect The discs are sharp with positive venous pulsations bilaterally. There are no exudates, hemorrhages, or blood vessel changes seen. Pupils are 3 mm bilaterally and reactive to light. Extraocular eye muscles are intact without nystagmus. Visual acuity and visual guerra seem normal grossly to confrontation. There are no deficits to sensation in the face in all 3 distributions of the fifth cranial nerve bilaterally. Corneal reflexes are positive bilaterally. Facial strength and symmetry was normal bilaterally. Hearing seems normal bilaterally. Palate moves well without asymmetry. There is normal sternocleidomastoid and trapezius (shoulder shrug) strength bilaterally. Tongue is midline with good strength bilaterally. Neck has a full range of motion without discomfort. There are no cervical bruits bilaterally. There are no cranial or ocular bruits. Heart is without murmur. There is a regular rhythm and rate. Cervical, thoracic, and lumbar spine are nontender to palpation. Gait is slightly wide-based and cautious. Turns are cautious as well but his head leads his body. Stance is unstable with feet together. He can get up on his toes briefly. With outstretched arms there is no drift. There are no resting, postural, or action tremors. There is no ataxia with finger to nose testing. There is good facility in the hands. No other abnormal involuntary movements are noted. Motor strength is 5/5 diffusely in the arms bilaterally including deltoids, biceps, triceps, brachioradialis, wrist flexors and extensors, change management coordinator, and intrinsic hand muscles. Motor strength is 5/5 diffusely in the legs bilaterally including hip flexors, quadriceps, hamstrings, gastrocnemius, tibialis anterior, tibialis posterior, and Peroneii muscles. Toe extensors are normal and there is good bulk in the extensor digitorum brevis muscles bilaterally. The limbs have good tone without rigidity or spasticity. There is no atrophy noted in the muscles. Muscle bulk is normal, there is no tenderness to palpation, no myotonia to percussion, and no fasciculations seen. Sensory examination is intact to touch and pin throughout all 4 limbs diffusely. Reflexes are 1/4 in the biceps, triceps, brachioradialis, and quadriceps tendons bilaterally. Achilles tendon reflexes are absent bilaterally. There is no clonus bilaterally. Toes are downgoing with plantar stimulation bilaterally. Peripheral pulses are present and of normal quality distally in all 4 limbs. There is no peripheral edema noted in the limbs. Results & Data ([facility]) Vital Signs (Past 12 Hours) Vital Signs Temp Pulse Pulse Resp BP Pulse Ox 05/26/21 09:00 63 05/26/21 07:52 36.8 C 58 L 18 155/81 H 95 05/26/21 03:57 36.6 C 63 16 192/86 H 95 05/26/21 01:00 59 L 05/25/21 23:32 36.8 C 61 18 149/69 H 97 05/25/21 22:46 36.8 C 85 18 160/90 H 96 PG Care Time/CCT Total # of Minutes Spent Total Time Spent with Patient: Total time spent is greater than 50% in coordination of care (as documented) at patient's floor/unit and/or counseling patient: Coding Level of Care Code 25361 Office/Outpt Visit, New Diagnoses Acute left-sided weakness R53.1 Ocular migraine G43.109 Hypertension I10 Carotid stenosis, bilateral I65.23 Polyneuropathy G62.9 Time Spent (min) 110 Comment Add modifiers as able
[2021-05-26] MEDS ORDERED: STROKE PATIENT DISCHARGE STA (11:10)
--- NOTE | 2021-05-26 11:29 | Discharge Summary ---
Date of Service May 26, 2021 Admission HPI Per Admitting Provider Arian Gamez is an 86 year old male who presents to the ER with left sided weakness that started yesterday afternoon. No facial droop, dysphagia, change in vision, speech or hearing. No prior stroke in the past. Initially started with numbness in his left forearm and weakness while driving. This did not resolve and he also noticed his toe starting to drag. He decided to take an aspirin when he got home. He has previously avoided antiplatelets despite known coronary artery disease due to prior history of GI bleed although does report this was many years ago. He denies any prior history of stroke. He took another aspirin this morning but cannot remember the dose. He came to the ER only after the insistence of his daughter. Unfortunately his had a stroke and he cared for her for many years before she . In the ER CT angiogram shows multiple intracranial and left vertebral plaque disease. He denies any dizziness or vertigo. He was referred to medicine for admission and ongoing management of presumed stroke. Principal Diagnosis TIA Discharge Exam Constitutional: WD/WN, vitals as above no acute distress Eyes: PERRL, conjunctivae normal, anicteric sclerae mild drooping of left eyelid, reportedly chronic ENMT: external ear and nose normal, oropharynx normal Neck: trachea midline, no thyromegaly Respiratory: normal respiratory effort, lungs clear to auscultation Cardiovascular: RRR, no murmur, no edema Extremities: normal capillary refill; no calf tenderness and no pedal edema Gastrointestinal (Abdomen): normal bowel sounds, soft, nontender, no hepatosplenomegaly Skin: no rashes, warm and dry Neurologic: moves all extremities, no focal weakness on exam, no sensory deficits. Psychiatric: A+Ox3, euthymic affect Discharge Data Allergies Allergy/AdvReac Type Severity Reaction Status Date / Time Sulfa (Sulfonamide Allergy Severe EDEMA Verified 05/25/21 16:31 Antibiotics) aspirin AdvReac Intermediate abdominal Verified 05/25/21 16:31 pain;Visual Disturbance escitalopram [From Lexapro] AdvReac Intermediate Confusion Verified 05/25/21 16:31 Consultations 05/25/21 17:57 ED Decision to Admit Stat 05/25/21 20:37 Consult Neurology Routine Ordered Studies 05/25/21 15:05 CT angio head w con Stat CT angio neck with con Stat CT head/brain wo con Stat Hospital Course (1) Stroke-like symptoms: Stroke without tPA order set Patient is claustrophobic therefore refusing MRI Suspect patient has had a stroke without this given severity of symptoms and will manage as such Allow permissive hypertension up to sBP 200, hold his usual amlodipine ASA 243mg (already had 81mg this morning) and Clopidogrel 300mg PO now, continue 81mg aspiring and 75mg clopidogrel in AM for 21 days then clopidogrel alone (previously GI bleed on aspirin) Monitor CBC weekly while on aspirin due to history of GI bleed Start atorvastatin 40mg PO QPM At discharge: APPRECIATE input from Neurology. patient had an episode starting May 24, lasting about 24 hours, consisting of some left upper extremity greater than lower extremity weakness. He had some left upper extremity numbness for an hour when this 1st started and that resolved. Clinically, he is back to baseline with no focal neurologic deficits. Overall, I suspected TIA but a small stroke cannot be excluded. Patient refuses an MRI. The patient has carotid intercerebral arterial stenosis as noted on CT angiography. This puts him at increased risk for stroke. Diabetes and hypertension are risk factors for stroke as well. The patient has significant hypertension, which may be leading to vasospasm. He has ocular auras without the headache for relatively frequent basis. The patient has an underlying polyneuropathy of a mild nature which likely gives him some sensory ataxia. He likely has some mild memory dysfunction as well. Recommendations: 1. since the patient refuses MRI of the brain, 2. control blood pressure as you are doing, aiming for a mean arterial pressure of approximately 100. 3. Control glucose as best as possible, aiming to lower the hemoglobin A1c to 6.5 or less. 4. the patient has excellent lipid parameters. Given his advanced age, he would not be a high dose statin candidate ( increases intercerebral hemorrhage risk). A regular statin dose is reasonable. 5. discontinue aspirin. 6. Continue with clopidogrel 75 mg daily. Patient agrees with discharge. Holding repeat imagig for now. This will not slubber frame changer. Will defer to PCP if patient would like a repeat CT scan of head to assess for small ishcmeic stroke that may have been missed on initial findings. A1C is 6.9; will defer to PCP. (2) CAD (coronary artery disease): Start antiplatelets as above. Would favor clopidogrel moving forward. 40% ostial LMCA disease on 12/10/2002 cardiac catheterization Previously declined antiplatelets and statin therapy (3) Benign prostatic hyperplasia with urinary obstruction: No current urinary obstruction Continue Rapaflo 8mg PO HS (4) Hypertension: Allow permissive hypertension as above Hold amlodipine Continue metoprolol to avoid rebound tachycardia (5) Aortic stenosis: Non-severe per recent cardiology note, under surveillance (6) Chronic kidney disease, stage 3: At baseline Monitor with BMP in AM (7) Diabetes mellitus type II, controlled: HbA1C with Am labs. 6.9 Diet controlled Insulin correction factor with BSG ACHS while here VTE Prophylaxis - Lovenox 40 mg SQ daily Diet - passed dysphagia screen, heart healthy, T2DM diet Disposition - observation status to med/tele Total Time Total Time Spent Total Time Spent (In Minutes): 32 Discharge Plan Discharge Items Patient Disposition: Home - Self-Care Reason For Visit: STROKE-LIKE SYMPTOMS Discharge Diagnosis: stroke- like symptoms Activity: Resume your previous activity Non-emergency contact: Primary Care Provider Call non-emergency contact if: you have any medication questions Follow-up/Referrals: Bolivar Chavarria MD [Primary Care Provider] - 06/02/21 3:00 pm Bishop Pop MD [Physician] - (follow up if desired) Diet: Carb Consistent or DM2 and Heart Healthy Addtl Attending Provider Instructions: Risk Factors for Stroke: You can reduce your chances of stroke by working with your medical provider to adopt a healthy lifestyle. Some specific ways to lower your chance of stroke are: * If you are a smoker, now is the time to stop smoking cigarettes * If you are diabetic, improve the control of your blood sugars * Avoid excessive amounts of alcohol * Control high blood pressure * Lose weight if you are overweight * Be sure to lead an active lifestyle * Eat a healthy diet low in salt, cholesterol and fat You should know about other risk factors for stroke that you are unable to cont rol. These include: * Age 55 years or older * Male gender * Certain racial groups: , or / * Family History of Stroke, Mini stroke or Heart Attack * Sickle Cell Disease Follow Up: It is important for you to keep your follow up appointments with your medical provider. Who to Call and When: Medical Emergencies: Call 911 immediately if you experience any of the following warning signs and symptoms of Stroke: * Sudden numbness or weakness of the face, arm or leg, especially on one side of the body * Sudden confusion, trouble speaking or understanding * Sudden trouble seeing in one or both eyes * Sudden trouble walking, dizziness, loss of balance or coordination * Sudden severe headache with no cause Do not delay calling 911 if you experience any warning signs or symptoms of a stroke. Delay in seeking medical attention may affect what treatments can be given to you. . Pending Studies at Discharge: No Stand-Alone Forms: Medications to Prevent Stroke, [facility], Smoking Cessation Medications and DC Order Prescriptions: New clopidogrel 75 mg Tablet 75 mg PO QAM Qty: 30 RF: 0 atorvastatin 40 mg Tablet 40 mg PO QPM Qty: 30 RF: 0 Continued (DME) OneTouch Ultra Blue Test Strip Strip See Dose Instructions .ROUTE .MEDSUPPLY Qty: 50 RF: 5 albuterol sulfate [Ventolin HFA] 90 mcg/actuation HFA aerosol inhaler See Rx Instructions INH QID PRN (Reason: shortness of breath or wheezing) Qty: 18 RF: 5 (DME) lancets [[address] [facility] [employer] ITouch UltraSoft Lancets] misc See Dose Instructions .ROUTE .MEDSUPPLY Qty: 50 RF: 0 (DME) blood-glucose meter [[address] [facility] [employer] ITouch Ultra2 Meter] kit See Dose Instructions .ROUTE .MEDSUPPLY Qty: 1 RF: 0 cholecalciferol (vitamin D3) [Vitamin D3] 125 mcg (5,000 unit) Tablet 125 mcg PO QAM RF: 0 metoprolol succinate [Toprol XL] 50 mg tablet extended release 24 hr 50 mg PO QAM RF: 0 amlodipine [Norvasc] 5 mg tablet 5 mg PO QAM RF: 0 nitroglycerin [Nitrostat] 0.4 mg tablet, sublingual 0.4 mg sublingual Q5M PRN (Reason: chest pain) RF: 0 metronidazole [Rosadan] 0.75 % gel 1 applic topical BID PRN (Reason: rosacea) RF: 0 finasteride [Proscar] 5 mg tablet 5 mg PO QAM RF: 0 diclofenac sodium [Voltaren Arthritis Pain] 1 % gel 4 g TOP QID PRN (Reason: KNEE PAIN) RF: 0 silodosin [Rapaflo] 8 mg capsule 8 mg PO HS RF: 0 Discharge Orders: Discharge Order (Routine); Ordered 05/26/21 Ordered By: Hany Wayne/Other Patient Handouts: Stroke and Heart Disease, Using Blood Thinners (Anticoagulants), Managing Type 2 Diabetes, What Is a TIA?, Anatomy of the Brain, Discharge Instructions for Stroke, Risk Factors for Stroke, Stroke Prevent Another Caregiver Admission Data Admit Date/Time: 05/25/21 18:12 Attending Provider: Hany Hair Admit Provider: Javier Castillo Primary Care Provider: Bolivar Chavarria Other Providers: Javier Castillo ; Don Olivo Other Interventions: Discharge Summary Assessment (RN) Last Done: 05/26/21 11:13 Coding Level of Care Code 31340 OBS Care - Discharge Diagnoses Stroke-like symptoms R29.90 CAD (coronary artery disease) I25.10 Benign prostatic hyperplasia with urinary obstruction N40.1; N13.8 Hypertension I10 Aortic stenosis I35.0 Chronic kidney disease, stage 3 N18.3 Diabetes mellitus type II, controlled E11.9 Time Spent (min) 32
--- NOTE | 2021-05-26 12:00 | Pharmacy Report ---
Pharmacist Stroke Counseling - Date of Service May 26, 2021 - Scope: Pharmacy has been consulted to provide medication discharge counseling for this patient admitted with stroke-like symptoms as per the Pharmacist Discharge Counseling for Stroke Patients Protocol. - Medications on Discharge: Home Medications Medication Instructions Recorded Confirmed blood-glucose meter (OneTouch #1 ea 04/19/19 05/23/21 Ultra2 Meter) lancets (OneTouch UltraSoft #50 ea 04/19/19 05/23/21 Lancets) cholecalciferol (vitamin D3) 125 125 mcg PO QAM 12/16/19 05/25/21 mcg (5,000 unit) tablet (Vitamin D3) amlodipine 5 mg tablet (Norvasc) 5 mg PO QAM 05/25/21 05/25/21 diclofenac sodium 1 % topical gel 4 g TOP QID PRN 05/25/21 05/25/21 (Voltaren Arthritis Pain) finasteride 5 mg tablet (Proscar) 5 mg PO QAM 05/25/21 05/25/21 metoprolol succinate 50 mg 50 mg PO QAM 05/25/21 05/25/21 tablet,extended release 24 hr (Toprol XL) metronidazole 0.75 % topical gel 1 applic TOPICAL BID PRN 05/25/21 05/25/21 (Rosadan) nitroglycerin 0.4 mg sublingual 0.4 mg SUBLINGUAL Q5M PRN 05/25/21 05/25/21 tablet (Nitrostat) silodosin 8 mg capsule (Rapaflo) 8 mg PO HS 05/25/21 05/25/21 New Rx's Medication Instructions Recorded blood sugar diagnostic (OneTouch #50 ea 11/12/20 Ultra Blue Test Strip) albuterol sulfate 90 mcg/actuation See Rx Instructions INH QID PRN 02/10/21 aerosol inhaler (Ventolin HFA) #18 g atorvastatin 40 mg tablet 40 mg PO QPM #30 tab 05/26/21 clopidogrel 75 mg tablet 75 mg PO QAM #30 tab 05/26/21 - Action: The above medications, specifically ones for stroke treatment/prophylaxis, have been reviewed in detail with the patient and/or patient clearance representative(s) prior to discharge. This includes indication, common adverse reactions, drug interactions, and medication administration. Medication counseling has been employed using the teach-back method to ensure understanding. - Outcome: The patient and/or patient clearance representative(s) have demonstrated understanding of the medications. Additional comments: [] Thank you for allowing pharmacy to be involved in the care of this patient. Please call [phone] with any additional questions
== END 2021-05-26 12:51 | disposition home or self-care (01) ==
LOC: ED 13:47 → 2N 13:47 → SUATTDRO 18:12 → 2N 19:57

== ENCOUNTER 2023-11-09 12:49 | Inpatient (IN) ==
--- NOTE | 2023-11-09 12:57 | Emergency Department Note ---
Impression & Plan CHF (congestive heart failure), Non-ST elevation SD (NSTEMI), Abdominal pain, Hypoxia ED Provider Note Provider: Jose Rueda MD DATE OF SERVICE: 11/09/2023 CHIEF COMPLAINT: Cough, shortness of breath, abdominal pain, chest tightness HISTORY OF PRESENT ILLNESS: Patient is a 88-year-old gentleman long past medical history including type 2 diabetes, CAD, aortic stenosis, CVA by his report presenting here today via ambulance from the bat in the office. Had a routine follow-up today. Available symptoms overnight states laying flat last night he woke and had discomfort and tightness to his central chest. This has abated a fair amount. Reports feeling more mid abdominal discomfort. No vomiting reported. Chronic cough since COVID in September may be slightly worse. A bit short of breath. No very slight tightness in his chest. EKG at the office was concerning for possible changes and brought here for evaluation. On Plavix at home. History of gastric ulcer. Did get 324 of aspirin for EMS. Denies significant leg swelling. No falls reported. Did receive a call from the patient's primary care provider who saw them earlier this morning referred him here. Evidently additional history as the patient's had intermittent chest discomfort at times over the last several days to weeks. Worsening breathing again confirmed over the last several weeks since COVID. He did reach out and had the patient discussed with cardiology as well. PAST MEDICAL HISTORY: As noted above MEDICATIONS: Reviewed home medications includes Plavix SOCIAL HISTORY: Former smoker PHYSICAL EXAM: GENERAL: alert and oriented in no acute distress on stretcher but fatigued appearing. Head: normocephalic and atraumatic EYES: No injection, discharge or icterus. NECK: Trachea midline. Supple. ENT: Mucous membranes pink and moist. LUNGS: Airway patent. No retractions. Mild tachypnea. Breath sounds with some right greater than left lower lung crackles HEART: Regular rate and rhythm. No chest wall tenderness ABDOMEN: Soft healed anterior abdominal wound without erythema but some mild to moderate mid abdominal tenderness. SKIN: Acyanotic, warm, dry, without rashes EXTREMITIES: Without trace welling of the lower extremities without tenderness or deformity. NEUROLOGICAL: No focal deficits. No aphasia. No facial droop or slurred speech. Normal strength and tone in the extremities. Sensation to gross touch normal. Ambulatory. EK bpm sinus rhythm first-degree AV block. No PVC but PAC noted. Left axis. No ST depression with an aVL T wave inversion and biphasic T waves V2 V3 with some borderline ST elevation in V2 V3. Compared to previous from September 08 of this year now with a biphasic anterior T waves and slight ST elevation. CONTINUOUS CARDIAC MONITORING: was ordered and showed a heart rate of bpm in Patient's laboratory studies and imaging reviewed. Differential includes URI, cholecystitis, appendicitis, diverticulitis, SBO, PUD, cardiac ischemia, aortic dissection, pulmonary embolism, pneumothorax, pneumonia, pericarditis, myocarditis, esophageal rupture, GERD, cholecystitis, pancreatitis, musculoskeletal, as well as other pathologies. IMPRESSION/MEDICAL DECISION MAKING: Patient with significant history of gastric ulcer and surgery. Given aspirin the way and it does have some ST segment changes but not STEMI criteria at this time. Denies significant chest discomfort at this time may be some slight tightness. More tender across the abdomen. Slight swelling of the lower extremities. Lungs do sound crackly. Chest x-ray seem consistent with likely fluid overload and heart failure. Questioning cardiac injury that has occurred may be subacute in nature given he had some ongoing chest discomfort according to the PCP who kindly gave me a call. Did send for CT to exclude PE, pneumonia, or intra-abdominal pathology given that he is having some tenderness across his abdomen. Blood work here without significant leukocytosis. Minimal anemia. No severe electrolyte abnormality beyond some hyponatremia noted. No evidence of acute hepatitis or pancreatitis based on labs. Discussed with Dr. Ross cardiology who had reviewed the EKG from earlier and believes is likely a subacute infarct with Q waves evolving. Recommended heparinization. Again patient without significant chest discomfort at this time. Troponin minimally elevated at this point. CT of the chest as well as CT of the abdomen pelvis per radiology report evidence of CHF and fluid overload with large pleural effusions but no evidence of bowel obstruction or PE or pneumonia. With the evidence of significant fluid overload given additional IV Lasix. Will anticoagulate with heparin drip per cardiology recommendation and bring in for further evaluation. Mildly hypoxic here with slight oxygen supplementation likely from fluid overload. Discussed with the hospitalist team here. Patient reluctantly agreeable to stay for further evaluation. DIAGNOSIS: Pulmonary edema, CHF, NSTEMI DISPOSITION: Hospitalist will evaluate Patient was agreeable with this plan. Critical Care I have personally spent 53 minutes of critical care time in the direct management of this patient. This includes bedside care, interpretation of diagnostic studies, and testing, discussion with consultants, patient, and family members, and other required patient management activities. These 53 minutes is in excess of all separately billable procedures. Past Med/Surg History Medical History Acute left-sided weakness CAD (coronary artery disease) Gout Benign prostatic hyperplasia with urinary obstruction Cervical disc disease Depression with anxiety Generalized osteoarthritis Hypertension Aortic stenosis Asthma, mild persistent Carpal tunnel syndrome of right wrist Cervical radiculopathy Diabetes mellitus type II, controlled Lumbar radiculopathy Polyneuropathy H/O Doppler echocardiogram Surgical History S/P partial gastrectomy Family History Mother , age 66 with diabetes Diabetes Sister Diabetes Parkinson disease Father , age 85 Heart disease Brother Heart disease Denies family history of Ovarian cancer Prostate cancer Coronary heart disease Myocardial infarction Breast cancer Colorectal cancer Social History Smoking Status: Never smoker Age Started Using Tobacco: 17; Age Quit Using Tobacco: 29; packs per day: 0.5; Cigarettes Per Day: 1 PPD; Second Hand Exposure: No; Do You Dip or Chew Tobacco: No; Hx Alcohol Use: No Hx Substance Use: No Preferred Language: Monegasque Communication Ability: Effective Visual Impairment: No Limitations Hearing Ability: Use of Hearing Aid Grinder Outside Diameter Required: No Beliefs That Will Affect Care: None marital status: / Current Living Situation: Alone current occupational status: retired 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 Feels Safe at Home: Yes Childhood Exposure to Second-Hand Smoke: No Diet: regular caffeine: Yes during the past year weight has: remained stable Dental Care, Regularly: No Physical Activity Frequency: Does not Exercise Seatbelt Use: always Sunscreen Use: No Assistive Devices: Cane and Walker Allergies Allergies Allergy/AdvReac Type Severity Reaction Status Date / Time Sulfa (Sulfonamide Allergy Severe EDEMA Verified 11/09/23 10:48 Antibiotics) aspirin AdvReac Intermediate abdominal Verified 11/09/23 10:48 pain;Visual Disturbance escitalopram [From Lexapro] AdvReac Intermediate Confusion Verified 11/09/23 10:48 metformin AdvReac Intermediate Abdominal Verified 11/09/23 11:14 Pain Home Meds Home Medications Medication Instructions Recorded Confirmed cholecalciferol (vitamin D3) 125 125 mcg PO QAM 12/16/19 11/09/23 mcg (5,000 unit) tablet (Vitamin D3) nitroglycerin 0.4 mg sublingual 0.4 mg sublingual Q5M PRN chest 05/25/21 11/09/23 tablet (Nitrostat) pain albuterol sulfate 90 mcg/actuation 2 puff inhalation Q6H PRN 09/13/23 11/09/23 aerosol inhaler Shortness Of Breath Or Wheezing clotrimazole-betamethasone 1 1 applic topical DIRECTED PRN .. 11/09/23 11/09/23 %-0.05 % topical cream Previous Rx's Medication Instructions Recorded colchicine 0.6 mg tablet (Colcrys) 0.6 mg PO DAILY PRN gout #90 tabs 05/20/22 amlodipine 5 mg tablet (Norvasc) 5 mg PO QAM #90 tabs 01/25/23 clopidogrel 75 mg tablet 75 mg PO QAM #90 tabs 05/19/23 atorvastatin 40 mg tablet 40 mg PO QPM #90 tabs 06/28/23 metronidazole 0.75 % topical gel 1 applic topical BID PRN rosacea 06/28/23 (Rosadan) #45 grams metoprolol succinate 50 mg 50 mg PO DAILY #90 tabs 07/26/23 tablet,extended release 24 hr (Toprol XL) finasteride 5 mg tablet (Proscar) 5 mg PO QAM #90 tabs 07/28/23 alfuzosin 10 mg tablet,extended 10 mg PO .qhs #30 tabs 08/27/23 release 24 hr diclofenac sodium 1 % topical gel See Rx Instructions .Route 10/13/23 .COMPLEX #300 grams calcium carbonate 600 mg-vitamin 2 cap PO DAILY #60 caps 11/09/23 D3 10 mcg (400 unit) capsule docusate sodium 100 mg capsule 100 mg PO BID PRN constipation #60 11/09/23 caps famotidine 20 mg tablet 20 mg PO BID #60 tabs 11/09/23 furosemide 20 mg tablet 20 mg PO DAILY #30 tabs 11/09/23 prednisone 10 mg tablet 40 mg (4 x 10 mg) PO DAILY #20 tabs 11/09/23 Results & Data (ED) Vital Signs Vital Signs - 24 hr 11/09/23 12:50 11/09/23 13:00 11/09/23 13:00 Temperature 36.4 C L Temperature Source Oral Pulse Rate 81 80 Respiratory Rate 25 H 25 H Respiratory Effort / Characteristics Non-Labored Respiratory Depth Normal Respiratory Pattern Regular Blood Pressure 133/80 Blood Pressure Mean 97 Pulse Oximetry 89 L 89 L 93 Oxygen Delivery Method Room Air Nasal Cannula Nasal Cannula Oxygen Flow Rate 0 4 Sepsis Recent Fever Within 48 Hours No Sepsis New/Unexplained Change in Mental Status N/A Sepsis Action Taken by Nursing No Action Required Oxygen Flow Rate - Titration 4 Pulse Oximetry Post Tiitration 93 11/09/23 13:20 Temperature Temperature Source Pulse Rate 80 Respiratory Rate Respiratory Effort / Characteristics Respiratory Depth Respiratory Pattern Blood Pressure Blood Pressure Mean Pulse Oximetry Oxygen Delivery Method Oxygen Flow Rate Sepsis Recent Fever Within 48 Hours Sepsis New/Unexplained Change in Mental Status Sepsis Action Taken by Nursing Oxygen Flow Rate - Titration Pulse Oximetry Post Tiitration Laboratory Data 11/09/23 13:07 11/09/23 13:07 Lab Results 11/09/23 11/09/23 11/09/23 Range/Units 13:07 13:12 14:56 WBC 7.79 (4.8-10.8) K/ul RBC 4.21 L (4.70-6.10) M/uL Hgb 12.6 L (14.0-18.0) g/dl POC Hgb 13.3 L (14.0-18.0) g/dl Hct 38.1 L (42.0-52.0) % POC Hct 39 L (42-52) % MCV 90.5 (80.0-100.0) fL MCH 29.9 (25.0-34.0) pg MCHC 33.1 (32.0-36.0) g/dL RDW Std Deviation 49.6 H (36.4-46.3) fL RDW Coeff of Garfield 15.1 H (11.5-14.5) % Plt Count 248 (130-400) K/uL MPV 10.0 (9.4-12.4) fL Immature Gran % (Auto) 0.3 % Neut % (Auto) 69.7 % Lymph % (Auto) 16.6 % Hockley % (Auto) 10.0 % Eos % (Auto) 2.8 % Baso % (Auto) 0.6 % Neut # (Auto) 5.43 (1.40-6.50) K/uL Lymph # (Auto) 1.29 (1.20-3.40) K/uL Hockley # (Auto) 0.78 H (0.11-0.59) K/uL Eos # (Auto) 0.22 (0.00-0.50) K/uL Baso # (Auto) 0.05 (0.00-0.20) K/uL Immature Gran # (Auto) 0.02 (0.01-0.20) K/uL PT 11.7 (9.0-12.0) Seconds INR 1.1 (0.9-1.1) APTT 29 (21-31) Seconds PTT Ratio 1.0 POC Sodium 131 L (135-144) mmol/L Sodium 130 L (136-145) mmol/L POC Potassium 4.3 (3.3-5.0) mmol/L Potassium 4.3 (3.5-5.1) mmol/L POC Chloride 96 L (101-112) mmol/L Chloride 98 (98-107) mmol/L Carbon Dioxide 24 (21-32) mmol/L POC Total CO2 24 (24-31) mmol/L Anion Gap 8 (3-11) POC Anion Gap 17.0 (16-25) mmol/L POC BUN 9 (7-18) mg/dl BUN 10 (6-23) mg/dl Creatinine 0.95 (0.6-1.4) mg/dl POC Creatinine 1.0 (0.6-1.3) mg/dl Est Cr Clr Drug Dosing Not Reportable Est GFR ( Amer) 81.9 ml/min Est GFR (Non-Af Amer) 70.7 ml/min BUN/Creatinine Ratio 10.5 (10-20) Glucose 130 H (70-99(Fasting)) mg/dl POC Glucose (70-99) mg/dl POC Glucose (other) 131 H (70-99) mg/dl Calcium 8.9 (8.6-10.3) mg/dl POC Ioniz Calcium Lesley 1.12 (1.12-1.32) mmol/l Total Bilirubin 1.1 H (0.2-1.0) mg/dl AST 18 (13-39) U/L ALT 12 (7-52) U/L Alkaline Phosphatase 83 (34-104) U/L Troponin I High Sens 64.4 H* 68.4 H* (0-20) pg/ml Total Protein 6.5 (6.0-8.3) gm/dl Albumin 3.7 (3.4-5.0) gm/dl Globulin 2.8 (2.5-4.0) gm/dl Albumin/Globulin Ratio 1.3 (0.9-2) Lipase 4 L (11-82) U/L SARS-CoV-2 (PCR) (Negative) Influenza Type A (PCR) (Neg) Influenza Type B (PCR) (Neg) RSV (RT-PCR) (Neg) 11/09/23 11/09/23 Range/Units 15:22 17:32 WBC (4.8-10.8) K/ul RBC (4.70-6.10) M/uL Hgb (14.0-18.0) g/dl POC Hgb (14.0-18.0) g/dl Hct (42.0-52.0) % POC Hct (42-52) % MCV (80.0-100.0) fL MCH (25.0-34.0) pg MCHC (32.0-36.0) g/dL RDW Std Deviation (36.4-46.3) fL RDW Coeff of Garfield (11.5-14.5) % Plt Count (130-400) K/uL MPV (9.4-12.4) fL Immature Gran % (Auto) % Neut % (Auto) % Lymph % (Auto) % Hockley % (Auto) % Eos % (Auto) % Baso % (Auto) % Neut # (Auto) (1.40-6.50) K/uL Lymph # (Auto) (1.20-3.40) K/uL Hockley # (Auto) (0.11-0.59) K/uL Eos # (Auto) (0.00-0.50) K/uL Baso # (Auto) (0.00-0.20) K/uL Immature Gran # (Auto) (0.01-0.20) K/uL PT (9.0-12.0) Seconds INR (0.9-1.1) APTT (21-31) Seconds PTT Ratio POC Sodium (135-144) mmol/L Sodium (136-145) mmol/L POC Potassium (3.3-5.0) mmol/L Potassium (3.5-5.1) mmol/L POC Chloride (101-112) mmol/L Chloride (98-107) mmol/L Carbon Dioxide (21-32) mmol/L POC Total CO2 (24-31) mmol/L Anion Gap (3-11) POC Anion Gap (16-25) mmol/L POC BUN (7-18) mg/dl BUN (6-23) mg/dl Creatinine (0.6-1.4) mg/dl POC Creatinine (0.6-1.3) mg/dl Est Cr Clr Drug Dosing Est GFR ( Amer) ml/min Est GFR (Non-Af Amer) ml/min BUN/Creatinine Ratio (10-20) Glucose (70-99(Fasting)) mg/dl POC Glucose 155 H (70-99) mg/dl POC Glucose (other) (70-99) mg/dl Calcium (8.6-10.3) mg/dl POC Ioniz Calcium Lesley (1.12-1.32) mmol/l Total Bilirubin (0.2-1.0) mg/dl AST (13-39) U/L ALT (7-52) U/L Alkaline Phosphatase (34-104) U/L Troponin I High Sens (0-20) pg/ml Total Protein (6.0-8.3) gm/dl Albumin (3.4-5.0) gm/dl Globulin (2.5-4.0) gm/dl Albumin/Globulin Ratio (0.9-2) Lipase (11-82) U/L SARS-CoV-2 (PCR) NEGATIVE (Negative) Influenza Type A (PCR) Negative (Neg) Influenza Type B (PCR) Negative (Neg) RSV (RT-PCR) Negative (Neg) Administered Medications Heparin Sodium/Dextrose (Heparin Sodium/Dextrose) 25,000 units in 500 mls @ 17 mls/hr IV .Q24H [facility]; Protocol Stop: 12/09/23 15:44 Last Admin: 11/09/23 16:39 Dose: 850 units/hr, 17 mls/hr Documented By: [email or web address] Co-signed By: TOÑO Discontinued Medications Furosemide (Furosemide 40 Mg/4 Ml Vial) 40 mg IV ONE ONE Stop: 11/09/23 14:09 Last Admin: 11/09/23 14:57 Dose: 40 mg Documented By: WILFRIDO Heparin Sodium (Porcine) (Heparin Sod (Porcine) 1000 Unit/Ml) 4,000 units IV NOW ONE Stop: 11/09/23 15:31 Last Admin: 11/09/23 16:40 Dose: 4,000 units Documented By: WILFRIDO Co-signed By: TOÑO Heparin Sodium/Dextrose (Heparin Iv Adult Wt-Based Low-Dose W/ Initial Bolus Protocol) 1 each IV NOW STA; Protocol Stop: 11/09/23 15:21 Last Admin: 11/09/23 16:05 Dose: Not Given Documented By: WILFRIDO Piperacillin Sod/Tazobactam (Sod 4.5 gm/ Dextrose) 100 mls @ 200 mls/hr IV NOW ONE; Protocol Stop: 11/09/23 16:29 Last Admin: 11/09/23 16:40 Dose: Not Given Documented By: WILFRIDO Ioversol (Optiray 320 125ml) 112 ml IV ONCE ONE Stop: 11/09/23 13:50 Last Admin: 11/09/23 13:49 Dose: 112 ml Documented By: JEANETTE Piperacillin Sod/Tazobactam Sod (Piperacillin/Tazobactam 4.5 Gm/100ml D5w) Confirm Administered Dose 4.5 gm IV .STK-MED ONE Stop: 11/09/23 16:21 Last Admin: 11/09/23 16:39 Dose: 4.5 gm Documented By: WILFRIDO Imaging Data Radiologist's Impression: Chest X-Ray 11/09/23 12:53 XR chest 1V portable HISTORY: 88 years-old Male Chest pain, nonspecific COMPARISON: 09/08/2023 TECHNIQUE: AP view the chest FINDINGS: Cardiac silhouette is enlarged. Pulmonary vascular congestion with interstitial coarsening. No pneumothorax. Layering pleural effusions and bibasilar consolidation. Bones appear grossly intact. IMPRESSION: 1. Cardiomegaly with pulmonary edema. 2. Layering pleural effusions with bibasilar consolidation. ACT 112: Negative or not required by law. The above report was generated using voice recognition software. It may contain grammatical, syntax or spelling errors. Electronically signed by: Parker Chen M.D. 11/09/2023 1:52 PM Abdomen/Pelvis CT 11/09/23 13:[address] WITH IV CONTRAST HISTORY: Acute shortness of breath with cough chest tighness, sob/cough, abd pain TECHNIQUE: Multiaxial CT images of the abdomen and pelvis were performed following the IV administration of 112 cc of Optiray, A dose lowering technique was utilized adhering to the principles of ALARA. COMPARISON STUDY: CT chest of same day, CT abdomen and pelvis 12/16/2019 FINDINGS: Cardiomegaly with extensive coronary artery calcifications. Moderate pleural effusions with dependent bibasilar consolidation. Pulmonary edema. No free air. Spleen, moderately atrophic pancreas and adrenal glands. Distended gallbladder with cholelithiasis. Unremarkable liver. Patency of the hepatic and portal veins. No hydronephrosis. There are a few subcentimeter scattered hypodensities of the kidneys, too small to characterize. Decompressed bladder with wall thickening. Prostatomegaly. Atherosclerosis of the aorta without aneurysm. No lymphadenopathy. Distal esophageal wall thickening with esophageal air-fluid level. Postop changes of the stomach. No bowel obstruction or bowel wall thickening. Normal appendix. Postoperative changes of anterior abdominal wall. Gynecomastia. Body wall edema. No acute fracture. Degenerative changes of the spine, pelvis and hips. IMPRESSION: 1. Cardiomegaly with pulmonary edema, moderate pleural effusions and dependent bibasilar consolidation. 2. No bowel obstruction or bowel wall thickening. 3. Distended gallbladder with cholelithiasis. 4. Additional findings as above. ACT 112: Negative or not required by law. The above report was generated using voice recognition software. It may contain grammatical, syntax or spelling errors. Electronically signed by: Parker Chen M.D. 11/09/2023 3:10 PM Chest CTA 11/09/23 13:14 CT ANGIOGRAM OF THE CHEST CLINICAL HISTORY: Atypical chest pain. Cough and dyspnea. COMPARISON STUDY: Chest CT dated 12/16/2019. Chest x-ray dated 11/09/2023. TECHNIQUE: Following the IV administration of 112 cc of Optiray 320, CT angiogram of the chest was performed from the upper abdomen to the thoracic inlet utilizing the pulmonary embolus protocol. Images are reviewed in the axial, sagittal, and coronal planes. 3-D MIPS images are created and assessed. IV contrast was administered without complication. A dose lowering technique was utilized adhering to the principles of ALARA. CT DOSE: 1751.13 mGy.cm FINDINGS: Thyroid: Imaged portions of the thyroid gland are normal in size and attenuation. Thoracic aorta: There is mild atherosclerotic calcification of the thoracic aorta, which is normal in caliber and demonstrates standard 3-vessel arch anatomy. The thoracic aorta is not well opacified.. Pulmonary vasculature: The main pulmonary arteries are dilated suggesting pulmonary artery hypertension. There are no filling defects identified in main, lobar, or segmental pulmonary branches to suggest pulmonary embolus. Evaluation of the distal segmental and subsegmental branches is degraded by motion artifact. Heart: The heart is enlarged and without pericardial effusion. The coronary arteries and mitral annulus are densely calcified. Lungs and pleural spaces: Evaluation of the lung parenchyma is degraded by motion artifact. There is diffuse interlobular septal thickening consistent with fluid overload/congestive change. Mild bilateral airspace opacities likely represent pulmonary edema. Diffuse bronchial thickening is noted. There are moderate pleural effusions with dependent atelectasis. Minimal secretions are noted in the trachea. Mediastinum: Subcentimeter mediastinal nodes are not pathologically enlarged by size criteria. Carrie: Prominent hilar lymph nodes measure up to 12 mm in short axis. These may be reactive. Axillae: There is no axillary lymphadenopathy. Upper abdomen: There is a small hiatal hernia. Partially visualized upper abdominal viscera is otherwise grossly unremarkable. Skeletal structures: The skeletal structures are osteopenic. No lytic or blastic bony lesions are seen. Degenerative change is noted in the shoulders and spine. IMPRESSION: 1. There is no evidence of pulmonary embolus in the main, lobar, or segmental pulmonary arteries. 2. Cardiomegaly with evidence of congestive failure. 3. Bilateral airspace opacities likely represent pulmonary edema. Correlate clinically for evidence of a superimposed infectious/inflammatory pneumonitis. Radiographic follow-up resolution is recommended. 4. Moderate pleural effusions with dependent atelectasis. 5. Additional findings as above. ACT 112: Negative or not required by law. Electronically signed by: Rasheed Patel M.D. 11/09/2023 2:24 PM Discharge Plan Visit Data Chief Complaint: Chest Pain ED Provider: Jose Rueda Discharge Problem: CHF (congestive heart failure), Non-ST elevation SD (NSTEMI), Abdominal pain, Hypoxia Patient Disposition: Being Evaluated by Hospitalist Forms Stand Alone Forms: [facility] Prescriptions Prescriptions: No Action colchicine [Colcrys] 0.6 mg tablet 0.6 mg PO DAILY PRN (Reason: gout) Qty: 90 3RF Rx Instructions: BRAND NECESSARY amlodipine [Norvasc] 5 mg tablet 5 mg PO QAM Qty: 90 3RF clopidogrel 75 mg tablet 75 mg PO QAM Qty: 90 3RF metronidazole [Rosadan] 0.75 % gel 1 applic topical BID PRN (Reason: rosacea) Qty: 45 3RF atorvastatin 40 mg tablet 40 mg PO QPM Qty: 90 3RF metoprolol succinate [Toprol XL] 50 mg tablet extended release 24 hr 50 mg PO DAILY Qty: 90 3RF finasteride [Proscar] 5 mg tablet 5 mg PO QAM Qty: 90 3RF diclofenac sodium 1 % gel See Rx Instructions .ROUTE .COMPLEX Qty: 300 3RF Dose Instruction: APPLY 4GM 4X DAILY NEEDED FOR KNEE PAIN APPLY TO EACH KNEE PRN FOR ARTHRITIS PAINS Rx Instructions: APPLY 4GM 4X DAILY NEEDED FOR KNEE PAIN APPLY TO EACH KNEE PRN FOR ARTHRITIS PAINS calcium carbonate-vitamin D3 600 mg-10 mcg (400 unit) capsule 2 cap PO DAILY Qty: 60 0RF famotidine 20 mg tablet 20 mg PO BID Qty: 60 2RF furosemide 20 mg tablet 20 mg PO DAILY Qty: 30 2RF prednisone 10 mg tablet 40 mg PO DAILY Qty: 20 0RF docusate sodium 100 mg capsule 100 mg PO BID PRN (Reason: constipation) Qty: 60 0RF alfuzosin 10 mg tablet extended release 24 hr 10 mg PO .qhs Qty: 30 11RF Hold Instructions: Patient is not taking this medicine Rx Instructions: administer after the same meal each day albuterol sulfate 90 mcg/actuation HFA aerosol inhaler 2 puff inhalation Q6H PRN (Reason: Shortness Of Breath Or Wheezing) cholecalciferol (vitamin D3) [Vitamin D3] 125 mcg (5,000 unit) Tablet 125 mcg PO QAM nitroglycerin [Nitrostat] 0.4 mg tablet, sublingual 0.4 mg sublingual Q5M PRN (Reason: chest pain) Rx Instructions: do not exceed 3 doses per episode clotrimazole-betamethasone 1-0.05 % cream 1 applic topical DIRECTED PRN (Reason: ..) Rx Instructions: Apply small/pea-sized amount topically before bed Referrals Referrals: Bolivar Chavarria MD [Primary Care Provider] -
[2023-11-09 13:23] LABS: Basophils # (auto) 0.05 K/uL (0.00-0.20); Basophils % (auto) 0.6 %; Eosinophils # (auto) 0.22 K/uL (0.00-0.50); Eosinophils % (auto) 2.8 %; Hematocrit (blood only) 38.1 % (42.0-52.0); Hemoglobin 12.6 g/dl (14.0-18.0); Immature Granulocytes # (auto) 0.02 K/uL (0.01-0.20); Immature Granulocytes % (auto) 0.3 %; Lymphocytes # (auto) 1.29 K/uL (1.20-3.40); Lymphocytes % (auto) 16.6 %; Mean Corpuscular Hemoglobin 29.9 pg (25.0-34.0); Mean Corpuscular Hgb Conc 33.1 g/dL (32.0-36.0); Mean Corpuscular Volume 90.5 fL (80.0-100.0); Monocytes # (auto) 0.78 K/uL (0.11-0.59); Neutrophils # (auto) 5.43 K/uL (1.40-6.50); Neutrophils % (auto) 69.7 %; Platelet Count 248 K/uL (130-400); RDW Coefficient of Variation 15.1 % (11.5-14.5); RDW Standard Deviation 49.6 fL (36.4-46.3); Red Blood Count 4.21 M/uL (4.70-6.10); White Blood Count 7.79 K/ul (4.8-10.8)
[2023-11-09 13:25] LABS: iSTAT Hemoglobin 13.3 g/dl (14.0-18.0); iSTAT Ionized Calcium 1.12 mmol/l (1.12-1.32); iSTAT Potassium 4.3 mmol/L (3.3-5.0)
[2023-11-09 13:42] LABS: Alanine Aminotransferase 12 U/L (7-52); Albumin Globulin Ratio 1.3 (0.9-2); Albumin Level 3.7 gm/dl (3.4-5.0); Alkaline Phosphatase 83 U/L (34-104); Anion Gap 8 (3-11); Aspartate Aminotransferase 18 U/L (13-39); BUN Creatinine Ratio 10.5 (10-20); Bilirubin,Total 1.1 mg/dl (0.2-1.0); Blood Urea Nitrogen 10 mg/dl (6-23); Calcium 8.9 mg/dl (8.6-10.3); Carbon Dioxide 24 mmol/L (21-32); Chloride 98 mmol/L (98-107); Est GFR (African American) 81.9 ml/min; Est GFR (Non-African American) 70.7 ml/min; Globulin 2.8 gm/dl (2.5-4.0); Glucose 130 mg/dl (70-99(Fasting)); Lipase 4 U/L (11-82); Potassium 4.3 mmol/L (3.5-5.1); Sodium 130 mmol/L (136-145); Total Protein 6.5 gm/dl (6.0-8.3)
[2023-11-09 13:47] LABS: INR 1.1 (0.9-1.1); Partial Thromboplastin Time 29 Seconds (21-31); Prothrombin Time 11.7 Seconds (9.0-12.0)
[2023-11-09] MEDS: OPTIRAY 320 125ml IV ONE (13:49)
[2023-11-09 13:52] LABS: Troponin I High Sensitivity 64.4 pg/ml (0-20)
--- NOTE | 2023-11-09 13:54 | XRay Report ---
XR chest 1V portable HISTORY: 88 years-old Male Chest pain, nonspecific COMPARISON: 09/08/2023 TECHNIQUE: AP view the chest FINDINGS: Cardiac silhouette is enlarged. Pulmonary vascular congestion with interstitial coarsening. No pneumo thorax. Layering pleural effusions and bibasilar consolidation. Bones appear grossly intact. IMPRESSION: 1. Cardiomegaly with pulmonary edema. 2. Layering pleural effusions with bibasilar consolidation. ACT 112: Negative or not required by law. The above report was generated using voice recognition software. It may contain grammatical, syntax o r spelling errors. Electronically signed by: Parker Chen M.D. 11/09/2023 1:52 PM
--- NOTE | 2023-11-09 14:25 | CT Scan Report ---
CT ANGIOGRAM OF THE CHEST CLINICAL HISTORY: Atypical chest pain. Cough and dyspnea. COMPARISON STUDY: Chest CT dated 12/16/2019. Chest x-ray dated 11/09/2023. TECHNIQUE: Following the IV administration of 112 cc of Optiray 320, CT angiogram of the chest was pe rformed from the upper abdomen to the thoracic inlet utilizing the pulmonary embolus protocol. Images are reviewed in the axial, sagittal, and coronal planes. 3-D MIPS images are created and assessed. I V contrast was administered without complication. A dose lowering technique was utilized adhering to the principles of ALARA. CT DOSE: 1751.13 mGy.cm FINDINGS: Thyroid: Imaged portions of the thyroid gland are normal in size and attenuation. Thoracic aorta: There is mild atherosclerotic calcification of the thoracic aorta, which is normal in caliber and demonstrates standard 3-vessel arch anatomy. The thoracic aorta is not well opacified.. Pulmonary vasculature: The main pulmonary arteries are dilated suggesting pulmonary artery hypertensi on. There are no filling defects identified in main, lobar, or segmental pulmonary branches to sugges t pulmonary embolus. Evaluation of the distal segmental and subsegmental branches is degraded by milly on artifact. Heart: The heart is enlarged and without pericardial effusion. The coronary arteries and mitral annul us are densely calcified. Lungs and pleural spaces: Evaluation of the lung parenchyma is degraded by motion artifact. There is diffuse interlobular septal thickening consistent with fluid overload/congestive change. Mild bilater al airspace opacities likely represent pulmonary edema. Diffuse bronchial thickening is noted. There are moderate pleural effusions with dependent atelectasis. Minimal secretions are noted in the trache a. Mediastinum: Subcentimeter mediastinal nodes are not pathologically enlarged by size criteria. Carrie: Prominent hilar lymph nodes measure up to 12 mm in short axis. These may be reactive. Axillae: There is no axillary lymphadenopathy. Upper abdomen: There is a small hiatal hernia. Partially visualized upper abdominal viscera is otherw ise grossly unremarkable. Skeletal structures: The skeletal structures are osteopenic. No lytic or blastic bony lesions are see n. Degenerative change is noted in the shoulders and spine. IMPRESSION: 1. There is no evidence of pulmonary embolus in the main, lobar, or segmental pulmonary arteries. 2. Cardiomegaly with evidence of congestive failure. 3. Bilateral airspace opacities likely represent pulmonary edema. Correlate clinically for evidence o f a superimposed infectious/inflammatory pneumonitis. Radiographic follow-up resolution is recommende d. 4. Moderate pleural effusions with dependent atelectasis. 5. Additional findings as above. ACT 112: Negative or not required by law. Electronically signed by: Rasheed Patel M.D. 11/09/2023 2:24 PM
[2023-11-09] MEDS: FUROSEMIDE 40 MG/4 ML VIAL IV ONE (14:57)
--- NOTE | 2023-11-09 14:59 | History & Physical Report ---
Date of Service November 09, 2023 Assessment & Plan (1) New onset of congestive heart failure: Plan: New CHF, subacute MS, history of CAD, aortic stenosis On initial ER evaluation EKG was sinus with first-degree block,? Anterior septal T wave inversions and borderline ST elevations not present on EKG 09/2023. Chest x-ray with evidence of pulmonary edema and consistent with CHF. Patient was suspected to have had a possible subacute MS and subsequent CHF. - CTA Chest: pulm edema + mod effusions, no evidence of PE.Cardiology was consulted, EKG was reviewed and suspected to have subacute infarct with evolving Q waves. Patient was recommended for heparinization. He was chest pain-free at time of hospitalist consultation. Troponin trended. Initial troponin 64 - Continue lasix 40mg IV daily for CHF. Monitor for overdiuresis; at risk 2/2 preload dependence with history of aortic stenosis. Goal net ~1L negative/day Cardiac cath 12/2002 with 40% ostial left main disease, patient continued on aspirin, statin, beta-yanet TTE 07/2023: EF 65 to 70%, no wall motion abnormalities. Moderate aortic stenosis. RVSP 30. Stable aortic stenosis compared to prior. Grade 1 diastolic dysfunction - Cardiology consulted Repeat echo pending Patient heparinized (2) Chronic cholecystitis: Plan: ?Elizabeth CTA/P shows distended gallbladder with cholelithiasis. No choledoco. He does not have a transaminitis, bilirubin is minimally elevated at 1.1. Patient is nontoxic and has no leukocytosis or fever. Clears as tolerated. nontoxic, and requires cardiac optimization Patient endorses several weeks of intermittent right upper quadrant spasms/pain generally last around 20 minutes. No otilio colored stools. He has not noticed any worsening of his pain with meals, though notes his appetite has been a little more poor over the last few weeks. Patient does note that his pain seemed to begin around 6 weeks ago at the same time as orthopnea did not have some bilateral lower rib discomfort, though it is worse on the right. DDx includes referred pain HIDA pending, npo, Zosyn (3) Diabetes mellitus type II, controlled: Plan: Type II DM Last A1c 6.9% Weight-based basal bolus, SSI while inpatient. Goal BSG [id number]. (4) Gout: Plan: Gout No acute flare, colchicine held (5) Asthma, mild persistent: Plan: Asthma No wheezing on admission. Hypoxia 2/2 acute CHF/pulmonary edema manage as noted May use albuterol as needed if wheezing develops (6) GERD (gastroesophageal reflux disease): Plan: Gerd, hx perforated gastric ulcer - No melena/hematochezia - BUN normal, hgb stable - Continued on PPI/H2 (7) Benign prostatic hyperplasia with urinary obstruction: Plan: BPH with LUTS, urethral stricture Stable, last had cystoscopy 2021 Bladder scan QS (8) History of CVA (cerebrovascular accident): Plan: CVA/TIA 2020 with left upper extremity, left lower extremity weakness no residual deficits. Patient refused MRI at that time. Patient initially on DAPT, s ubsequently continued on Plavix monotherapy - DAPT avoided due to hx of duodenal ulcer/perf (9) CKD (chronic kidney disease): Plan: No PRAFUL, trend BMP daily renally adjust medications as needed - Cr .95 on admit, GFR >60 - BMP daily (10) Hypertension: Plan: normotensive on admission, diuresis as noted, amlodipine continued (11) Hyponatremia: Plan: With history of SIADH, also with acute CHF and volume overload Urine studies deferred as pt already receiving lasix. Trended Fluid restricted, low-sodium diet Mild hyponatremia at 130 on admission Plan DVT prophylaxis: Heparinized CODE STATUS: DNR/DNI Disposition: PCU for CHF, subacute MS Diet: npo History of Present Illness Primary Care Provider: Bolivar Chavarria MD Arian is a 88-year-old male with a past medical history of CAD, BPH with LUTS, asthma, aortic stenosis, DM 2, and partial gastrectomy who presented to the emergency department on PCP referral for intermittent chest discomfort, dyspnea, and concern for ischemic changes on outpatient EKG. Patient received full dose aspirin en route to the ER. Arian reports that he went to the doctors for concern of right upper quadrant abdominal pain, but was referred for concerns about his heart. Abdominal pain intermittent, 20 minute episodes since COVID around August. No association with meals. No hematochezia, melena, or otilio colored stools. Reports in the last week he had bilateral lower rib pain and tenderness in his upper abdomen, although this is much worse on the right than the left. Denies nausea and vomiting and thinks his appetite has been diminished for around 6 weeks but overall "okay ". Denies chest pain, chest pressure. Endorses orthopnea which started ~6 weeks ago, same time as bilateral low rib pain Bilateral ankle swelling for a 1 week. Denies fever, chills, sweats. No dysuria. No urinary change/symptoms At bedside assessment he reports he feels better. Notes his right abdominal pain seems to come in spasms of about 20 minutes or so and has not really changed in duration inthe last few weeks, currently he feels that his pain is okay and he is in no pain at rest currently, although continues to endorse tenderness with deep right upper quadrant palpation. Medical History: Reviewed Medications: Reviewed Surgical History: Reviewed Family history: Reviewed Allergies: Reviewed Social History: No tobacco use, no etoh use. Code Status: DNR/DNI Allergies Allergy/AdvReac Type Severity Reaction Status Date / Time Sulfa (Sulfonamide Allergy Severe EDEMA Verified 11/09/23 10:48 Antibiotics) aspirin AdvReac Intermediate abdominal Verified 11/09/23 10:48 pain;Visual Disturbance escitalopram [From Lexapro] AdvReac Intermediate Confusion Verified 11/09/23 10:48 metformin AdvReac Intermediate Abdominal Verified 11/09/23 11:14 Pain Home Medications Medication Instructions Recorded Confirmed Type cholecalciferol (vitamin D3) 125 125 mcg PO QAM 12/16/19 11/09/23 History mcg (5,000 unit) tablet (Vitamin D3) nitroglycerin 0.4 mg sublingual 0.4 mg sublingual Q5M PRN chest 05/25/21 11/09/23 History tablet (Nitrostat) pain colchicine 0.6 mg tablet (Colcrys) 0.6 mg PO DAILY PRN gout #90 tabs 05/20/22 11/09/23 Rx amlodipine 5 mg tablet (Norvasc) 5 mg PO QAM #90 tabs 01/25/23 11/09/23 Rx clopidogrel 75 mg tablet 75 mg PO QAM #90 tabs 05/19/23 11/09/23 Rx atorvastatin 40 mg tablet 40 mg PO QPM #90 tabs 06/28/23 11/09/23 Rx metronidazole 0.75 % topical gel 1 applic topical BID PRN rosacea 06/28/23 11/09/23 Rx (Rosadan) #45 grams metoprolol succinate 50 mg 50 mg PO DAILY #90 tabs 07/26/23 11/09/23 Rx tablet,extended release 24 hr (Toprol XL) finasteride 5 mg tablet (Proscar) 5 mg PO QAM #90 tabs 07/28/23 11/09/23 Rx alfuzosin 10 mg tablet,extended 10 mg PO .qhs #30 tabs 08/27/23 11/09/23 Rx release 24 hr albuterol sulfate 90 mcg/actuation 2 puff inhalation Q6H PRN 09/13/23 11/09/23 History aerosol inhaler Shortness Of Breath Or Wheezing diclofenac sodium 1 % topical gel See Rx Instructions .Route 10/13/23 11/09/23 Rx .COMPLEX #300 grams calcium carbonate 600 mg-vitamin 2 cap PO DAILY #60 caps 11/09/23 11/09/23 Rx D3 10 mcg (400 unit) capsule clotrimazole-betamethasone 1 1 applic topical DIRECTED PRN .. 11/09/23 11/09/23 History %-0.05 % topical cream docusate sodium 100 mg capsule 100 mg PO BID PRN constipation #60 11/09/23 11/09/23 Rx caps famotidine 20 mg tablet 20 mg PO BID #60 tabs 11/09/23 11/09/23 Rx furosemide 20 mg tablet 20 mg PO DAILY #30 tabs 11/09/23 11/09/23 Rx prednisone 10 mg tablet 40 mg (4 x 10 mg) PO DAILY #20 tabs 11/09/23 11/09/23 Rx Past Med/Surg History Medical History Acute left-sided weakness CAD (coronary artery disease) Gout Benign prostatic hyperplasia with urinary obstruction Cervical disc disease Depression with anxiety Generalized osteoarthritis Hypertension Aortic stenosis Asthma, mild persistent Carpal tunnel syndrome of right wrist Cervical radiculopathy Diabetes mellitus type II, controlled Lumbar radiculopathy Polyneuropathy H/O Doppler echocardiogram Surgical History S/P partial gastrectomy Family History Mother , age 66 with diabetes Diabetes Sister Diabetes Parkinson disease Father , age 85 Heart disease Brother Heart disease Denies family history of Ovarian cancer Prostate cancer Coronary heart disease Myocardial infarction Breast cancer Colorectal cancer Social History Smoking Status: Never smoker Age Started Using Tobacco: 17; Age Quit Using Tobacco: 29; packs per day: 0.5; Cigarettes Per Day: 1 PPD; Second Hand Exposure: No; Do You Dip or Chew Tobacco: No; Hx Alcohol Use: No Hx Substance Use: No Preferred Language: Turkish Communication Ability: Effective Visual Impairment: No Limitations Hearing Ability: Use of Hearing Aid [place]cherette Required: No Beliefs That Will Affect Care: None marital status: / Current Living Situation: Alone current occupational status: retired 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 Feels Safe at Home: Yes Childhood Exposure to Second-Hand Smoke: No Diet: regular caffeine: Yes during the past year weight has: remained stable Dental Care, Regularly: No Physical Activity Frequency: Does not Exercise Seatbelt Use: always Sunscreen Use: No Assistive Devices: Cane and Walker Physical Exam Physical Exam: General: A&Ox3. NAD. Cooperative. HEENT: Atraumatic, normocephalic. PERLAA. EOM intact. Pulm: CTAB A&P. -wheezes, -rales, -rhonchi. Symmetrical chest rise. No increased work of breathing. No respiratory distress. Cardiac: RRR, +sm. Radial pulses intact and symmetrical. +JVD Abdominal: RUQ TTP without rebound/guarding/rigidity. Nondistended, soft. BS present. Ext: Warm, dry, moves extremities equally. 1+ ankle edema bilat Results & Data Results & Data Vital Signs (Past 12 Hours) Vital Signs Temp Pulse Resp BP Pulse Ox O2 Del Method O2 Flow Rate 11/09/23 13:20 80 11/09/23 13:00 80 25 H 93 Nasal Cannula 4 11/09/23 13:00 89 L Nasal Cannula 0 11/09/23 12:50 36.4 C L 81 25 H 133/80 89 L Room Air PG Care Time/CCT Total # of Minutes Spent Total Time Spent with Patient: Total time spent is greater than 50% in coordination of care (as documented) at patient's floor/unit and/or counseling patient: Coding Level of Care Code 63406 INT INP/OBS CARE 3/75MIN Diagnoses New onset of congestive heart failure I50.9 Chronic cholecystitis K81.1 Diabetes mellitus type II, controlled E11.9 Gout M10.9 Asthma, mild persistent J45.30 GERD (gastroesophageal reflux disease) K21.9 Benign prostatic hyperplasia with urinary obstruction N40.1; N13.8 History of CVA (cerebrovascular accident) Z86.73 CKD (chronic kidney disease) N18.9 Hypertension I10 Hyponatremia E87.1
--- NOTE | 2023-11-09 15:07 | Electrocardiogram Report ---
Test Reason : Blood Pressure : / mmHG Vent. Rate : 077 BPM Atrial Rate : 077 BPM P-R Int : 222 ms QRS Dur : 104 ms QT Int : 432 ms P-R-T Axes : 045 -50 102 degrees QTc Int : 488 ms Sinus rhythm with 1st degree A-V block with Premature atrial complexes Left axis deviation Septal infarct , age undetermined Abnormal ECG When compared with ECG of 08-SEP-2023 13:38, Premature atrial complexes are now Present Criteria for Septal infarct is now Present T wave inversion now evident in Anterolateral leads Confirmed by Duran Ross ([id number]) on 11/09/2023 3:07:20 PM Referred By: Miguel Angel Chavarria Confirmed By:Duran Ross
--- NOTE | 2023-11-09 15:11 | CT Scan Report ---
ABDOMEN AND PELVIS CT WITH IV CONTRAST HISTORY: Acute shortness of breath with cough chest tighness, sob/cough, abd pain TECHNIQUE: Multiaxial CT images of the abdomen and pelvis were performed following the IV administrat ion of 112 cc of Optiray, A dose lowering technique was utilized adhering to the principles of ALARA . COMPARISON STUDY: CT chest of same day, CT abdomen and pelvis 12/16/2019 FINDINGS: Cardiomegaly with extensive coronary artery calcifications. Moderate pleural effusions with dependent bibasilar consolidation. Pulmonary edema. No free air. Spleen, moderately atrophic pancrea s and adrenal glands. Distended gallbladder with cholelithiasis. Unremarkable liver. Patency of the h epatic and portal veins. No hydronephrosis. There are a few subcentimeter scattered hypodensities of the kidneys, too small to characterize. Decompressed bladder with wall thickening. Prostatomegaly. Atherosclerosis of the aort a without aneurysm. No lymphadenopathy. Distal esophageal wall thickening with esophageal air-fluid level. Postop changes of the stomach. No bowel obstruction or bowel wall thickening. Normal appendix. Postoperative changes of anterior abdomi nal wall. Gynecomastia. Body wall edema. No acute fracture. Degenerative changes of the spine, pelvis and hips. IMPRESSION: 1. Cardiomegaly with pulmonary edema, moderate pleural effusions and dependent bibasilar consolidatio n. 2. No bowel obstruction or bowel wall thickening. 3. Distended gallbladder with cholelithiasis. 4. Additional findings as above. ACT 112: Negative or not required by law. The above report was generated using voice recognition software. It may contain grammatical, syntax o r spelling errors. Electronically signed by: Parker Chen M.D. 11/09/2023 3:10 PM
[2023-11-09] MEDS ORDERED: GLUCAGON FOR INJ 1 MG VIAL SQ PRN (15:15)
[2023-11-09] MEDS ORDERED: DEXTROSE 50% 50 ML SYRINGE IV PRN (15:15)
[2023-11-09] MEDS ORDERED: GLUCOSE 40% GEL 15 GM TUBE PO PRN (15:15)
[2023-11-09] MEDS ORDERED: GLUCOSE 10 TAB/TUBE PO PRN (15:15)
[2023-11-09] MEDS ORDERED: HEPARIN SOD (PORCINE) 1000 UNIT/ML IV ONE (15:35)
[2023-11-09] MEDS: Heparin IV Adult Wt-Based Low-Dose w/ INITIAL Bolus Protocol IV STA (16:05)
[2023-11-09 16:08] LABS: Influenza A virus by PCR Negative (Neg); Influenza B virus by PCR Negative (Neg); RSV by PCR Negative (Neg); SARS CoV2 RNA(COVID-19) Ceph NEGATIVE (Negative)
[2023-11-09] MEDS: HEPARIN SODIUM/DEXTROSE 25,000 UNITS/500 ML BAG IV SCH (16:39)
[2023-11-09] MEDS: PIPERACILLIN/TAZOBACTAM 4.5 GM/100ML D5W IV ONE (16:39)
[2023-11-09] MEDS: PIPER/TAZO 4.5g in D5W MINI-B 100 ML IV ONE (16:40)
[2023-11-09] MEDS: HEPARIN SOD (PORCINE) 1000 UNIT/ML IV ONE (16:40)
--- NOTE | 2023-11-09 17:49 | Cardiology Consultation ---
Date of Consultation November 09, 2023 Assessment & Plan (1) New onset of congestive heart failure: (2) CAD (coronary artery disease): (3) Abnormal ECG: Plan 88-year-old man with symptoms consistent with recent/new onset congestive heart failure and ECG suggestive of recent anteroseptal infarct admitted for further cardiac evaluation/risk stratification. Aortic stenosis was moderate on recent echocardiogram and moderate to severe on exam today, although his valvular degrees could be a potential etiology for heart failure it would not account for his ECG changes. Suspect recent infarct with reduced LV systolic function, pulmonary edema, and perhaps hepatic congestion. Obtain echocardiogram to assess LV function and reevaluate aortic valve. Agree with diuresis (received furosemide 40 mg IV). Add NE inhibitor or ARB, if LV function is markedly reduced would also sequent ially consider adding carvedilol, Entresto, and spironolactone. Since he is having persistent exertional symptoms (albeit somewhat atypical), he may still have myocardium at risk and should undergo further risk stratification. Would recommend cardiac catheterization after he has been volume unloaded. Patient routinely follows with Dr. Combs, will keep him informed as to the patient's status. History of Present Illness Reason for Consultation: CHF Requesting Physician: Roly Bangura MD Attending Physician: Roly Bangura MD History of Present Illness 88-year-old man with history of CAD (40% left main at 2002 cath), moderate aortic stenosis (July 2023 echo), HTN, and prior history of atypical chest pain, who was admitted earlier today (11/09/2023) after being seen by Dr. Chavarria in the office and complaining of progressive dyspnea and intermittent chest pain with ECG today showing apparent recent anteroseptal infarct. Although he has a history of atypical chest pain in the past, he had not noted any symptoms until recent weeks when he would note intermittent lower thoracic chest/upper abdominal discomfort occurring for up to half hour at a time. Possibly worsened with activity, but can occur at rest. He also noted development of orthopnea in recent weeks as well as mild ankle edema. He has noted increasing dyspnea on exertion. At the time my evaluation, he denied any chest discomfort or dyspnea. He did note some lower rib and upper abdominal discomfort which she stated came on when he walked to the bathroom and back, beginning right after he laid back down. Allergies Allergy/AdvReac Type Severity Reaction Status Date / Time Sulfa (Sulfonamide Allergy Severe EDEMA Verified 11/09/23 10:48 Antibiotics) aspirin AdvReac Intermediate abdominal Verified 11/09/23 10:48 pain;Visual Disturbance escitalopram [From Lexapro] AdvReac Intermediate Confusion Verified 11/09/23 10:48 metformin AdvReac Intermediate Abdominal Verified 11/09/23 11:14 Pain Home Medications Medication Instructions Recorded Confirmed Type cholecalciferol (vitamin D3) 125 125 mcg PO QAM 12/16/19 11/09/23 History mcg (5,000 unit) tablet (Vitamin D3) nitroglycerin 0.4 mg sublingual 0.4 mg sublingual Q5M PRN chest 05/25/21 11/09/23 History tablet (Nitrostat) pain colchicine 0.6 mg tablet (Colcrys) 0.6 mg PO DAILY PRN gout #90 tabs 05/20/22 11/09/23 Rx amlodipine 5 mg tablet (Norvasc) 5 mg PO QAM #90 tabs 01/25/23 11/09/23 Rx clopidogrel 75 mg tablet 75 mg PO QAM #90 tabs 05/19/23 11/09/23 Rx atorvastatin 40 mg tablet 40 mg PO QPM #90 tabs 06/28/23 11/09/23 Rx metronidazole 0.75 % topical gel 1 applic topical BID PRN rosacea 06/28/23 11/09/23 Rx (Rosadan) #45 grams metoprolol succinate 50 mg 50 mg PO DAILY #90 tabs 07/26/23 11/09/23 Rx tablet,extended release 24 hr (Toprol XL) finasteride 5 mg tablet (Proscar) 5 mg PO QAM #90 tabs 07/28/23 11/09/23 Rx alfuzosin 10 mg tablet,extended 10 mg PO .qhs #30 tabs 08/27/23 11/09/23 Rx release 24 hr albuterol sulfate 90 mcg/actuation 2 puff inhalation Q6H PRN 09/13/23 11/09/23 History aerosol inhaler Shortness Of Breath Or Wheezing diclofenac sodium 1 % topical gel See Rx Instructions .Route 10/13/23 11/09/23 Rx .COMPLEX #300 grams calcium carbonate 600 mg-vitamin 2 cap PO DAILY #60 caps 11/09/23 11/09/23 Rx D3 10 mcg (400 unit) capsule clotrimazole-betamethasone 1 1 applic topical DIRECTED PRN .. 11/09/23 11/09/23 History %-0.05 % topical cream docusate sodium 100 mg capsule 100 mg PO BID PRN constipation #60 11/09/23 11/09/23 Rx caps famotidine 20 mg tablet 20 mg PO BID #60 tabs 11/09/23 11/09/23 Rx furosemide 20 mg tablet 20 mg PO DAILY #30 tabs 11/09/23 11/09/23 Rx prednisone 10 mg tablet 40 mg (4 x 10 mg) PO DAILY #20 tabs 11/09/23 11/09/23 Rx Patient History Medical History Acute left-sided weakness CAD (coronary artery disease) Gout Benign prostatic hyperplasia with urinary obstruction Cervical disc disease Depression with anxiety Generalized osteoarthritis Hypertension Aortic stenosis Asthma, mild persistent Carpal tunnel syndrome of right wrist Cervical radiculopathy Diabetes mellitus type II, controlled Lumbar radiculopathy Polyneuropathy H/O Doppler echocardiogram Surgical History S/P partial gastrectomy Family History Mother , age 66 with diabetes Diabetes Sister Diabetes Parkinson disease Father , age 85 Heart disease Brother Heart disease Denies family history of Ovarian cancer Prostate cancer Coronary heart disease Myocardial infarction Breast cancer Colorectal cancer Social History Smoking Status: Never smoker Age Started Using Tobacco: 17; Age Quit Using Tobacco: 29; packs per day: 0.5; Cigarettes Per Day: 1 PPD; Second Hand Exposure: No; Do You Dip or Chew Tobacco: No; Hx Alcohol Use: No Hx Substance Use: No Preferred Language: Hungarian Communication Ability: Effective Visual Impairment: No Limitations Hearing Ability: Use of Hearing Aid Swatch Paster Required: No Beliefs That Will Affect Care: None marital status: / Current Living Situation: Alone current occupational status: retired 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 Feels Safe at Home: Yes Childhood Exposure to Second-Hand Smoke: No Diet: regular caffeine: Yes during the past year weight has: remained stable Dental Care, Regularly: No Physical Activity Frequency: Does not Exercise Seatbelt Use: always Sunscreen Use: No Assistive Devices: Cane and Walker Physical Exam Physical Exam: No distress. Afebrile. BP normotensive. Pulse 80 bpm and regular. Respirations 25 but unlabored. Skin: no ecchymoses or generalized lesions. HEENT: unremarkable. Neck: JVP correction to the angle of the jaw at 90 degrees with increased respiratory variation, carotids with faint transmitted murmur. Lungs: Mildly decreased breath sounds with few basilar crackles. No wheezing. No accessory muscle use. Cardiac: regular rhythm, markedly diminished/almost an audible aortic closure sound, 2/6 crescendo decrescendo systolic ejection murmur at the right upper sternal border rating to the carotids and the apex, no diastolic murmur. Abdomen: benign. Extremities: Trace to 1+ pretibial edema, pulses intact. Neurologic: normal affect and conversation, nonfocal. Results & Data Vital Signs (Past 12 Hours) Vital Signs Temp Pulse Resp BP Pulse Ox O2 Del Method O2 Flow Rate 11/09/23 13:20 80 11/09/23 13:00 80 25 H 93 Nasal Cannula 4 11/09/23 13:00 89 L Nasal Cannula 0 11/09/23 12:50 97.5 F L 81 25 H 133/80 89 L Room Air Laboratory Results Initial troponin value was 68 and 64. Hemoglobin 12.6 with normal white count. Sodium 130, potassium 4.3, BUN 10, creatinine 0.95. Diagnostic Findings ECG showed sinus rhythm with first-degree AV block and PACs, anterior fascicular block, and age-indeterminate anteroseptal infarct (Q waves and mild ST elevation in leads V2V4). Compared with 09/08/2023 ECG, anteroseptal infarct is new and T waves are now inverted in the anterior leads. Chest x-ray/chest CT show pulmonary edema and moderate pleural effusions. PG Care Time/CCT Total # of Minutes Spent Total Time Spent with Patient: Total time spent is greater than 50% in coordination of care (as documented) at patient's floor/unit and/or counseling patient: Coding Level of Care Code 72427 INT INP/OBS CARE 3/75MIN Diagnoses New onset of congestive heart failure I50.9 CAD (coronary artery disease) I25.10 Abnormal ECG R94.31
[2023-11-09] MEDS ORDERED: NITROGLYCERIN SL 0.4 MG/TAB TAB SL PRN (18:10)
[2023-11-09] MEDS ORDERED: ALBUTEROL HFA 8 GM INHALER INH PRN (18:10)
[2023-11-09] MEDS ORDERED: DOCUSATE SODIUM 100 MG CAP PO PRN (18:10)
[2023-11-09] MEDS: INSULIN ASPART PER UNIT CHARGE SC SCH (18:48)
[2023-11-09] MEDS: PANTOprazole 40 MG in SYRINGE 0 ML IV ONE (19:54)
[2023-11-09] MEDS: ATORVASTATIN 40 MG TAB PO SCH (21:18)
[2023-11-09] MEDS: TAMSULOSIN HCL 0.4 MG CAP PO SCH (21:18)
[2023-11-09] MEDS: FAMOTIDINE 20 MG TAB PO SCH (21:18)
[2023-11-09] MEDS: PIPERACILLIN/TAZOBACTAM 4.5 GM in DEXTROSE 5% MINI-B 100 ML IV SCH (21:19)
[2023-11-09] MEDS: CARBOHYDRATES FOR HYPOGLYCEMIA PO PRN (21:55)
[2023-11-09 22:54] LABS: ANTI-Xa, UFH(UnfractionatedHep 0.55 IU/ml (0.3-0.7)
[2023-11-10] MEDS: CALCIUM 600MG + VIT D 400 IU TAB PO SCH (08:43)
[2023-11-10] MEDS: amLODIPine BESYLATE 5 MG TAB PO SCH (08:43)
[2023-11-10] MEDS: CLOPIDOGREL BISULFATE 75 MG TAB PO SCH (08:44)
[2023-11-10] MEDS: CHOLECALCIFEROL 125 MCG (5,000 UNITS) TAB PO SCH (08:44)
[2023-11-10] MEDS: FINASTERIDE 5 MG TAB PO SCH (08:45)
[2023-11-10] MEDS: METOPROLOL SUCC 50MG EXT REL TAB PO SCH (08:45)
[2023-11-10] MEDS: FUROSEMIDE 40 MG/4 ML VIAL IV SCH (08:45)
[2023-11-10] MEDS: POTASSIUM CHLORIDE CRTAB 20 MEQ TABCR PO SCH (08:46)
[2023-11-10 08:53] LABS: ANTI-Xa, UFH(UnfractionatedHep 0.55 IU/ml (0.3-0.7)
--- NOTE | 2023-11-10 12:32 | Nuclear Medicine Report ---
NUCLEAR HEPATOBILIARY SCAN WITH EJECTION FRACTION IMAGING CLINICAL HISTORY: Right upper quadrant abdominal pain. COMPARISON STUDY: Abdominal CT dated 11/09/2023. TECHNIQUE: Dynamic images of the liver and anterior abdomen were obtained every 5 minutes for a total of 60 minutes following the IV administration of 5.2 mCi of technetium 99m Mebrofenin. 1.7 mcg of sincalide was then injected with additional images acquired 1 minute and 45 metastases post sincalide injection to calculate the gallbladder ejection fraction. FINDINGS: The hepatobiliary scan shows prompt and homogeneous hepatic uptake. There is visualized act ivity within the intra and extrahepatic biliary tree at 10 minutes, and within the gallbladder at 30 minutes. There is normal biliary to bowel transit, with small bowel visualized by 15 minutes. On the sincalide imaging, the gallbladder ejection fraction was measured at 35%. IMPRESSION: 1. Unremarkable nuclear hepatobiliary scan. There is no scintigraphic evidence of cholecystitis. 2. The gallbladder ejection fraction measured 35% which is low normal. ACT 112: Negative or not required by law. Electronically signed by: Rasheed Patel M.D. 11/10/2023 12:31 PM
[2023-11-10] MEDS: PANTOprazole 40 MG in SYRINGE 0 ML IV SCH (12:43)
--- NOTE | 2023-11-10 13:19 | XCELERA ---
[id number]
--- NOTE | 2023-11-10 14:39 | Cardiology Progress Note ---
Date of Service November 10, 2023 Assessment & Plan (1) New onset of congestive heart failure: (2) Apical myocardial infarction: (3) CAD (coronary artery disease): (4) Moderate to severe aortic stenosis: Plan Clinically improving, but still mildly hypervolemic. Additional history, flat troponin curve, and echocardiogram suggest apical infarct about a week ago with subsequent development of new onset congestive heart failure. Given that his event occurred more than 48 hours ago and that his thoracic symptoms are most likely congestive rather than ischemic, favor further optimization of volume status prior to cardiac catheterization (which likely would occur tomorrow). Continue beta-yanet (metoprolol succinate 50 mg daily) for post NV risk reduction. Would shift from amlodipine as antihypertensive to ARB (losartan 50 mg daily). Continue IV diuretic for further volume unloading. Continue clopidogrel 75 mg daily as antiplatelet agent. Continue IV heparin, hold in the morning (for cath) Depending upon cardiac catheterization results, decide on medical management vs. percutaneous intervention, given advanced age he would be unlikely to be a surgical candidate but could be considered for future transcatheter aortic valve replacement (TAVR) after recovering from his infarct. Admission and Anticipated Discharge Date Admission Date: November 09, 2023 Subjective Clinically improving, much less short of breath and now notes only mild lower thoracic/upper abdominal discomfort which is transient (such as after walking back from the bathroom). No anginal type chest pain reported. Input/output not accurately recorded. Weight not obtained. However, patient does note significant diuresis. Troponin mildly elevated but flat curve. Echocardiogram showed apical infarct with moderately reduced LV systolic function (EF 40%) as well as moderate to severe aortic stenosis, moderate mitral regurgitation, and mild pulmonary hypertension. Upon further inquiry, after discussing echocardiogram results (infarct), patient notes that about a week ago he had 3 hours of significant chest discomfort and has felt very fatigued since. Physical Exam Physical Exam: No distress. Afebrile. BP mildly hypertensive. Pulse 70 bpm and regular. Respirations 18 and unlabored Skin: no ecchymoses or generalized lesions. HEENT: unremarkable. Neck: JVP one third of the way to the angle of the jaw at 90 degrees with incre ased respiratory variation, carotids with faint transmitted murmur. Lungs: Mildly decreased breath sounds with few basilar crackles. No wheezing. No accessory muscle use. Cardiac: regular rhythm, markedly diminished/almost an audible aortic closure sound, 2/6 crescendo decrescendo systolic ejection murmur at the right upper sternal border rating to the carotids and the apex, no diastolic murmur. Abdomen: benign. Extremities: Trace to 1+ pretibial edema, pulses intact. Neurologic: normal affect and conversation, nonfocal. Results & Data Vital Signs (Past 12 Hours) Vital Signs Pulse Pulse Resp BP Pulse Ox Pulse Ox O2 Del Method 11/10/23 08:11 70 11/10/23 08:00 93 11/10/23 06:49 66 18 144/66 H 96 Nasal Cannula O2 Del Method O2 Flow Rate 11/10/23 08:11 11/10/23 08:00 Room Air 11/10/23 06:49 2 Laboratory Results Troponin values 5981 range on 5 draws. Normal electrolytes, BUN 10, creatinine 0.95. Diagnostic Findings Echocardiogram as noted in HPI. PG Care Time/CCT Total # of Minutes Spent Total Time Spent with Patient: Total time spent is greater than 50% in coordination of care (as documented) at patient's floor/unit and/or counseling patient: Coding Level of Care Code 41146 SUB INP/OBS CARE 3/50MIN Diagnoses New onset of congestive heart failure I50.9 Apical myocardial infarction I21.29 CAD (coronary artery disease) I25.10 Moderate to severe aortic stenosis I35.0
[2023-11-10] MEDS: SINCALIDE 1.7 MCG in 0.9 % SODIUM CHLORIDE 100 ML IV ONE (14:41)
--- NOTE | 2023-11-10 16:29 | Hospitalist Progress Note ---
Date of Service November 10, 2023 Assessment & Plan (1) New onset of congestive heart failure: Plan: Acute systolic CHF Echocardiogram showed EF of 40 to 45% with apical akinesis Responding to IV diuretic therapy Continue 40 mg of IV Lasix daily Cardiology on board, planning on cardiac catheterization tomorrow Cardiology recommends continuing IV heparin Continue Plavix 75 mg Continue beta-yanet (2) Chronic cholecystitis: Plan: CT abdomen pelvis showed distended gallbladder with cholelithiasis. HIDA scan is negative. Discontinue n.p.o. Discontinue Zosyn Right upper quadrant pain has resolved. Pain was most likely related to volume overload, bilateral pleural effusion (3) Diabetes mellitus type II, controlled: Plan: Type II DM Last A1c 6.9% Weight-based basal bolus, SSI while inpatient. Goal BSG [id number]. (4) Gout: Plan: Gout No acute flare, colchicine held (5) Asthma, mild persistent: Plan: Asthma No wheezing on admission. Hypoxia 2/2 acute CHF/pulmonary edema manage as noted May use albuterol as needed if wheezing develops (6) GERD (gastroesophageal reflux disease): Plan: Gerd, hx perforated gastric ulcer - No melena/hematochezia - BUN normal, hgb stable - Continued on PPI/H2 (7) Benign prostatic hyperplasia with urinary obstruction: Plan: BPH with LUTS, urethral stricture Stable, last had cystoscopy 2021 Bladder scan QS (8) History of CVA (cerebrovascular accident): Plan: CVA/TIA 2020 with left upper extremity, left lower extremity weakness no residual deficits. Patient refused MRI at that time. Patient initially on DAPT, subsequently continued on Plavix monotherapy - DAPT avoided due to hx of duodenal ulcer/perf (9) CKD (chronic kidney disease): Plan: No PRAFUL, trend BMP daily renally adjust medications as needed - Cr .95 on admit, GFR >60 - BMP daily (10) Hypertension: Plan: normotensive on admission, diuresis as noted, amlodipine continued May consider switching from amlodipine to losartan at the time of discharge (11) Hyponatremia: Plan: With history of SIADH, also with acute CHF and volume overload Urine studies deferred as pt already receiving lasix. Trended Fluid restricted, low-sodium diet Mild hyponatremia at 130 on admission Plan DVT prophylaxis: Heparinized CODE STATUS: DNR/DNI Disposition: PCU for CHF, subacute DC Admission and Anticipated Discharge Date Admission Date: November 09, 2023 Subjective Patient feels better. Says that he is "peeing a lot". Review of Systems Review of Systems: All systems reviewed & are unremarkable except as noted in Subjective Physical Exam Physical Exam: General: Awake, conversant Heart: S1, S2/regular rate and rhythm, no murmur rubs or gallops Lungs: Bibasilar crackles. Normal effort Abdomen: Soft/nontender/nondistended. No hepatosplenomegaly Extremities: No clubbing/cyanosis. 1+ pitting bilateral edema Behavior: Appropriate, cooperative Results & Data Results & Data Vital Signs (Past 12 Hours) Vital Signs Temp Pulse Pulse Resp BP Pulse Ox Pulse Ox 11/10/23 15:32 69 11/10/23 14:30 36.3 C L 72 16 135/70 96 11/10/23 08:11 70 11/10/23 08:00 93 11/10/23 06:49 66 18 144/66 H 96 O2 Del Method O2 Del Method O2 Flow Rate 11/10/23 15:32 11/10/23 14:30 Room Air 11/10/23 08:11 11/10/23 08:00 Room Air 11/10/23 06:49 Nasal Cannula 2 Laboratory Results Abnormal lab results 11/09/23 11/09/23 11/09/23 Range/Units 17:32 21:24 22:36 POC Glucose 155 H 67 L* (70-99) mg/dl Troponin I High Sens 81.4 H* D (0-20) pg/ml 11/09/23 11/10/23 11/10/23 Range/Units 23:27 06:13 07:28 POC Glucose 117 H 124 H (70-99) mg/dl Troponin I High Sens 65.4 H* D (0-20) pg/ml 11/10/23 11/10/23 11/10/23 Range/Units 12:32 12:40 14:36 POC Glucose 146 H 211 H (70-99) mg/dl Troponin I High Sens 59.4 H* (0-20) pg/ml PG Care Time/CCT Total # of Minutes Spent Total Time Spent with Patient: Total time spent is greater than 50% in coordination of care (as documented) at patient's floor/unit and/or counseling patient: Coding Level of Care Code 01559 SUB INP/OBS CARE 2/35MIN Diagnoses New onset of congestive heart failure I50.9 Chronic cholecystitis K81.1 Diabetes mellitus type II, controlled E11.9 Gout M10.9 Asthma, mild persistent J45.30 GERD (gastroesophageal reflux disease) K21.9 Benign prostatic hyperplasia with urinary obstruction N40.1; N13.8 History of CVA (cerebrovascular accident) Z86.73 CKD (chronic kidney disease) N18.9 Hypertension I10 Hyponatremia E87.1
[2023-11-11] MEDS: ONDANSETRON INJ 2 MG/ML 2 ML VIAL IV STA (05:15)
[2023-11-11 08:10] LABS: ANTI-Xa, UFH(UnfractionatedHep 0.54 IU/ml (0.3-0.7)
[2023-11-11 08:12] LABS: BUN Creatinine Ratio 9.1 (10-20); Calcium 8.6 mg/dl (8.6-10.3); Creatinine Clr Calc Pharmacy 40.5 ml/min; Est GFR (African American) 61.1 ml/min; Est GFR (Non-African American) 52.8 ml/min; Potassium 3.8 mmol/L (3.5-5.1)
[2023-11-11] MEDS: fentaNYL citrate PF 100 MCG/2 ML VIAL ONE (10:47)
[2023-11-11] MEDS: MIDAZOLAM HCL 1 MG/ML 2ML VIAL ONE (10:48)
[2023-11-11] MEDS: HEPARIN (PORCINE) 1000 UNIT/ML 10 ML (CATH LAB USE ONLY) ONE (10:48)
[2023-11-11] MEDS: NITROGLYCERIN/D5W 100MCG/ML 20ML SYR ONE (10:49)
[2023-11-11] MEDS: niCARdipine HCL INJ 2.5 MG/ML 10 ML AMP ONE (10:49)
[2023-11-11] MEDS: ASPIRIN 81 MG CHEW ONE (10:50)
[2023-11-11] MEDS: OPTIRAY 350 ONE (10:50)
--- NOTE | 2023-11-11 11:24 | Pre Anesthesia Assessment ---
Date of Service November 11, 2023 Pre Sedation Assessment Vital Signs Temp Pulse Pulse Resp BP BP Pulse Ox 11/11/23 11:10 72 18 118/58 L 94 11/11/23 10:55 76 18 121/65 96 11/11/23 09:44 70 18 143/69 H 97 11/11/23 08:00 11/11/23 07:12 36.4 C L 76 18 128/66 91 11/11/23 03:28 36.6 C 75 16 131/71 92 11/10/23 23:56 74 11/10/23 23:18 36.8 C 73 16 132/70 94 11/10/23 20:00 11/10/23 15:32 69 11/10/23 14:30 36.3 C L 72 16 135/70 96 O2 Del Method O2 Del Method 11/11/23 11:10 Room Air 11/11/23 10:55 Room Air 11/11/23 09:44 Room Air 11/11/23 08:00 Room Air 11/11/23 07:12 Room Air 11/11/23 03:28 Room Air 11/10/23 23:56 11/10/23 23:18 Room Air 11/10/23 20:00 Room Air 11/10/23 15:32 11/10/23 14:30 Room Air Cardiovascular Additional Comments: Grade 2-3/6 systolic murmur S4 gallop No edema Respiratory Additional Comments: Bilateral dullness one third up right greater than left. Scattered crackles. Fair air movement. Pre-Sedation Airway Assessment Smoking Status: Never smoker Hx Sleep Apnea: No Short, Thick Neck: No Thyromental Distance: > or= 3.5 Finger Breadths Oral Cavity: + Dentures Mallampati Class: II ASA: ASA4 NPO Status Date of Last Intake of Fluids: 11/10/23 Date of Last Intake of Solid Food: 11/10/23 Notes The planned sedation has been discussed with the patient. Informed Consent was obtained. I have identified the patient, determined the appropriateness of sedation and have assessed the patient immediately prior to the procedure. All medicine(s) and interventions are by my order.
--- NOTE | 2023-11-11 11:33 | Cardiac Catheterization ---
ACC Data: Staffing Consultant Cardiac Status Clinical evaluation leading to the procedure Cardiomyopathy new Non-ST elevation [place] CAD Presenation: Non STEMI Anginal Classification: CCS IV Heart Failure: NYHA Class: CCS IV Cardiogenic Shock within 24 Hours: No Cardiac Arrest within 24 Hours: No Imaging Studies Past 6 Months: Yes Stress Studies Past 6 Months: No Coronary Anatomy Dominant: Right Left Main (% Stenosis): Normal LAD (% Stenosis): Proximal (99%) and Mid (70%) D1 (% Stenosis): Ostial (50%) and Mid (99%) Circumflex (% Stenosis): Normal OM1 (% Stenosis): Normal OM2 (% Stenosis): Normal L PL1 (% Stenosis): Normal RCA (% Stenosis): Proximal (40%), Mid (40 to 50%) and Distal (20%) R PDA (% Stenosis): Normal R PL1 (% Stenosis): Normal Ramus (% Stenosis): Normal Diagnostic Physicians Name: Joesph Jacome MD, PhD Closure Device Percutaneous Entry Location: Radial Closure Device: Radial Band Recommendations: Medical Therapy and/or Counseling and PCI without planned CABG PCI Indication: PCI for high risk Non-ERIC Lesion Segment Name: Proximal to mid LAD Culprit Artery: Yes Stenosis Prior to Rx (%): 99% Chronic Total Occlusion: No Pre-Procedure LENORA Flow: 2 Previously Treated Lesion: No Lesion Complexity: Non-High/Non-C Lesion Length (mm): 17 Thrombus Present: No Bifurcation Lesion: Yes Guidewire Across Lesion: Yes Intraprocedure Events Significant Disection: No Perforation: No Cardiac Cath Procedure Full Procedure Date November 11, 2023 Pre-Procedure Diagnosis Pre-Procedure Diagnosis: Non STEMI and Cardiomyopathy AUC Score AUC Score: 07 Post-Procedure Diagnosis Post-Procedure Diagnosis: Severe CAD Procedure(s) Performed Procedure(s) Performed: Coronary Angiography and Drug Eluting Stent Otolaryngology Rep Joesph Jacome MD, PhD Estimated Blood Loss Estimated Blood Loss: 5 cc Medication(s) Medication(s): Fentanyl, Heparin, Lidocaine 1%, Nicardipine, Nitroglycerin and Versed Summary of Findings Brief description: Patient was brought to the cardiac catheterization suite where he was shaved and prepped in a sterile fashion. Sedated using IV Versed and fentanyl. Soft tissues of the right wrist were anesthetized using 2 mL of 1% Xylocaine. The right radial artery was accessed with a modified Seldinger technique and a 6 [place] radial artery glide sheath was placed. All catheters were advanced and exchanged over a 0.035 J-tip wire. Patient was provided anticoagulation with IV heparin and antispasmodics including nicardipine and nitroglycerin. Left coronary angiography in orthogonal views with a 5 [place] 4 diagnostic catheter. Right coronary angiography in orthogonal views with a 5 [place] 4 diagnostic catheter. Diagnostic catheters were removed. Decision was made to proceed with PCI of the LAD. ACT was checked and additional heparin was provided as needed to maintain therapeutic anticoagulation. A 6 [place] EBU 3.0 guide catheter was used to engage the left main coronary. BMW reversal guidewire was advanced through the guide catheter and positioned distally in the LAD. The lesion was predilated using a 2.0 x 12 mm trek balloon with multiple inflations up to 14 radha. A 2.5 x 22 mm [place] drug-eluting stent was then positioned across the lesion where was deployed atXXXX atmospheres. Optical Effects Layout Person angiography was performed. A guide liner catheter was advanced over the guidewire to assist with delivery of noncompliant balloon. A 2.75 x 12 mm NC trek was then advanced. The mid stent was postdilated to XXXX atmospheres. The balloon was repositioned into the proximal portion of the stent where it was postdilated toXXXXX atmospheres. Balloon was removed. Optical Effects Layout Person angiography was performed. Guidewire was removed and final angiographic evaluation performed. Guide catheter was then removed over the J-wire. Radial artery sheath was removed. Hemostasis was obtained using the radial band. Patient was hemodynamically stable and asymptomatic. He was returned to the recovery area. This ended the case. Coronary angiography findings: [id number] vessel trifurcating into LAD, ramus, and circumflex. No significant disease. [id number]. Proximal and mid vessel have at least moderate c alcification. There is a 99% stenosis just before the ostium of the first diagonal. D1 is medium to large in caliber with 3 major branches. The ostium of the diagonal has 50% stenosis while the mid segment just beyond the first branch has 99% stenosis. The vessel is less than 2 mm in diameter. The early mid LAD has continuation of disease but is less narrowed at about 70%. The distal LAD has no significant disease. [id number] and nondominant. Travels in the AV groove where it gives to small to medium caliber obtuse marginals and then terminates in a small posterolateral branch. There is no more than mild luminal irregularities in the circumflex and its branches. Ramus-this is medium to large in caliber and branches distally. It has diffuse mild luminal irregularities. RCA-this is very large in caliber and dominant. Proximal segment has diffuse less than 40% stenosis. Mid segment with 40 to 50% stenosis and distally there is only mild plaques of less than 20% with moderate calcification. It then bifurcates into a large caliber long PDA which goes to the apex and a large multi branching posterolateral. No angiographically significant disease in the branch vessels of the RCA. PCI of LAD-0% residual stenosis post PCI No evidence of dissection or perforation post PCI LENORA-3 flow post PCI Summary: 1. Severe LAD stenosis is the culprit for his anterior and apical wall motion abnormality and recent non-ST elevation NJ. Likely causative of his acute systolic heart failure. 2. Successful PCI with implantation of a drug-eluting stent in the LAD. 3. Patient will be on dual antiplatelet therapy with aspirin 81 mg daily (not true allergy) and Plavix 75 mg p.o. daily. 4. Guideline directed medical therapy for secondary prevention of coronary disease we will continue with low-dose aspirin, high intensity statin therapy, beta-yanet, plus or minus NE inhibitor or angiotensin receptor yanet. Hemodynamics Rest Ao:: 147/74 mmHg Final Ao: 128/64 mmHg LV: Not performed Recommendations Recommendations: Medical Therapy and/or Counseling and PCI without planned CABG Radiation Exposure (mGy) 1747 mGy, fluoroscopy time 10.9 minutes Contrast (mls) 121 mL Anesthesia 1 mg Versed, 25 mcg fentanyl IV. Start time 1006, end time 1044 Procedural Complication(s) None Disposition Staffing Consultant Holding/Recovery I attest to the content of the Intraoperative Record and any orders documented therein. Any exceptions are noted below. [facility] [place] Procedure Codes Cardiac Catheterization Procedure 1: Cardiovascular Cath Procedures: 31329 Coronaries Moderate Sedation Procedure 1: Sedation/Anesthesia: 23955 Mod Sedation by the same physician;Init15 Min Child Age 5 & Up (Initial 15 minutes, start time 1006) Procedure 2: Sedation/Anesthesia: 25964 Mod Sedation by the same physician; Ea [id number] Minutes (Additional 23 min, end time 1044) Stenting Procedure 1: Cardiovascular Stent Procedures: 04318 Perc transluminal revascularization of acute sub/total occl, aMI (LAD) PG Care Time/CCT Total # of Minutes Spent Total Time Spent with Patient: Total time spent is greater than 50% in coordination of care (as documented) at patient's floor/unit and/or counseling patient:
[2023-11-11] MEDS: FUROSEMIDE 40 MG/4 ML VIAL IV STA (12:19)
--- NOTE | 2023-11-11 14:28 | Cardiology Progress Note ---
Date of Service November 11, 2023 Assessment & Plan (1) Apical myocardial infarction: (2) CAD (coronary artery disease): (3) Status post insertion of drug-eluting stent into left anterior descending (LAD) artery: (4) New onset of congestive heart failure: (5) Moderate to severe aortic stenosis: (6) Cardiomyopathy: Plan Doing well status post drug-eluting stent LAD, as noted remaining vessels with only nonocclusive/branch vessel disease. Continue aspirin 81 mg daily and clopidogrel 75 mg twice daily has dual antiplatelet therapy for the next year. Still mildly hypervolemic and positive fluid balance overnight, agree with increase furosemide dose today (furosemide 40 mg IV twice daily) to further volume unload, likely can reduce rate of diuresis tomorrow. Given reduced LV systolic function which could further decline as he gets further out from the adrenergic drive of recent OR, if creatinine remains reasonable tomorrow would favor discontinuing amlodipine and initiating losartan 50 mg daily. Continue metoprolol succinate 50 mg daily for cardiomyopathy/postinfarct treatment. Unclear if he will tolerate, but reasonable to try outpatient enrollment in cardiac rehabilitation. Depending upon his clinical status after recovering from current myocardial infarction, if aortic valvular disease progresses he could be a potential TAVR candidate in the future. Admission and Anticipated Discharge Date Admission Date: November 09, 2023 Subjective Patient doing well status post cardiac catheterization earlier today. Successful placement of drug-eluting LAD stent for culprit lesion, remaining vessels with nonocclusive or branch vessel disease only. Input/output 1 L positive. Weight not accurate. Patient had no complaints, eating lunch, denied chest pain, dyspnea, or palpitations. Telemetry showed sinus rhythm with first-degree AV block rate in the 70-80 bpm range. Physical Exam Physical Exam: No distress. Afebrile. BP normotensive. Pulse 80 bpm and regular. Respirations 20 but unlabored. Skin: no ecchymoses or generalized lesions. HEENT: unremarkable. Neck: JVP just above the clavicle at 90 degrees, carotids with faint transmitted murmur. Lungs: Mildly decreased breath sounds with rare basilar crackles. No wheezing. No accessory muscle use. Cardiac: regular rhythm, markedly diminished/almost an audible aortic closure sound, 2/6 crescendo decrescendo systolic ejection murmur at the right upper sternal border rating to the carotids and the apex, no diastolic murmur. Abdomen: benign. Extremities: Trace to 1+ pretibial edema, pulses intact. Neurologic: normal affect and conversation, nonfocal. Results & Data Laboratory Results Sodium 130, potassium 3.8, BUN 11, creatinine 1.21. Diagnostic Findings ECG showed sinus rhythm with first-degree AV block, left anterior fascicular block, recent anteroseptal infarct, and anterior/anterolateral T wave inversions. Compared with yesterday, T wave inversions now noted. PG Care Time/CCT Total # of Minutes Spent Total Time Spent with Patient: Total time spent is greater than 50% in coordination of care (as documented) at patient's floor/unit and/or counseling patient: Coding Level of Care Code 71240 SUB INP/OBS CARE 350MIN Diagnoses Apical myocardial infarction I21.29 CAD (coronary artery disease) I25.10 Status post insertion of drug-eluting stent into left anterior descending (LAD) artery Z95.5 New onset of congestive heart failure I50.9 Moderate to severe aortic stenosis I35.0 Cardiomyopathy I42.9
--- NOTE | 2023-11-11 14:46 | Hospitalist Progress Note ---
Date of Service November 11, 2023 Assessment & Plan (1) New onset of congestive heart failure: Plan: Acute systolic CHF Echocardiogram showed EF of 40 to 45% with apical akinesis Responding to IV diuretic therapy Noted that Lasix was increased to IV 40 mg twice daily by glass cleaning machine tender. Cardiac catheterization completed, showed LAD stenosis, stented Patient is on aspirin, Plavix, beta-yanet, statin Will start NE or ARB when off of IV Lasix and creatinine stable (2) Chronic cholecystitis: Plan: CT abdomen pelvis showed distended gallbladder with cholelithiasis. HIDA scan is negative. Discontinue n.p.o. Discontinue Zosyn Right upper quadrant pain has resolved. Pain was most likely related to volume overload, bilateral pleural effusion (3) Diabetes mellitus type II, controlled: Plan: Type II DM Last A1c 6.9% Weight-based basal bolus, SSI while inpatient. Goal BSG [id number]. (4) Gout: Plan: Gout No acute flare, colchicine held (5) Asthma, mild persistent: Plan: Asthma No wheezing on admission. Hypoxia 2/2 acute CHF/pulmonary edema manage as noted May use albuterol as needed if wheezing develops (6) GERD (gastroesophageal reflux disease): Plan: Gerd, hx perforated gastric ulcer - No melena/hematochezia - BUN normal, hgb stable - Continued on PPI/H2 (7) Benign prostatic hyperplasia with urinary obstruction: Plan: BPH with LUTS, urethral stricture Stable, last had cystoscopy 2021 Bladder scan QS (8) History of CVA (cerebrovascular accident): Plan: CVA/TIA 2020 with left upper extremity, left lower extremity weakness no residual deficits. Patient refused MRI at that time. Patient initially on DAPT, subsequently continued on Plavix monotherapy - DAPT avoided due to hx of duodenal ulcer/perf (9) CKD (chronic kidney disease): Plan: No PRAFUL, trend BMP daily renally adjust medications as needed - Cr .95 on admit, GFR >60 - BMP daily (10) Hypertension: Plan: normotensive on admission, diuresis as noted, amlodipine continued May consider switching from amlodipine to losartan at the time of discharge Currently on beta-yanet as well. Blood pressure tolerating (11) Hyponatremia: Plan: With history of SIADH, also with acute CHF and volume overload Urine studies deferred as pt already receiving lasix. Trended Fluid restricted, low-sodium diet Mild hyponatremia at 130 on admission Plan DVT prophylaxis: Heparin drip discontinued today CODE STATUS: DNR/DNI Disposition: PCU for CHF, subacute [place] Admission and Anticipated Discharge Date Admission Date: November 09, 2023 Subjective Patient is feeling well today. He just got back from the [employer]. Status post drug-eluting stent in the LAD Review of Systems Review of Systems: All systems reviewed & are unremarkable except as noted in Subjective Physical Exam Physical Exam: General: Awake, conversant Heart: S1, S2/regular rate and rhythm, no murmur rubs or gallops Lungs: Few bibasilar crackles. Normal effort Abdomen: Soft/nontender/nondistended. No hepatosplenomegaly Extremities: No clubbing/cyanosis. Trace pitting bilateral edema Behavior: Appropriate, cooperative Results & Data Results & Data Vital Signs (Past 12 Hours) Vital Signs Temp Pulse Resp BP BP Pulse Ox O2 Del Method 11/11/23 13:59 80 20 117/68 Room Air 11/11/23 12:59 36.6 C 62 20 98/55 L 92 Room Air 11/11/23 12:29 69 18 125/67 95 Room Air 11/11/23 11:59 36.8 C 82 20 103/67 95 Room Air 11/11/23 11:44 36.4 C L 74 20 124/63 90 Room Air 11/11/23 11:36 36.3 C L 77 18 121/53 L 93 Room Air 11/11/23 11:14 80 11/11/23 11:10 72 18 118/58 L 94 Room Air 11/11/23 10:55 76 18 121/65 96 Room Air 11/11/23 09:44 70 18 143/69 H 97 Room Air 11/11/23 08:00 11/11/23 07:12 36.4 C L 76 18 128/66 91 Room Air 11/11/23 03:28 36.6 C 75 16 131/71 92 Room Air O2 Del Method 11/11/23 13:59 11/11/23 12:59 11/11/23 12:29 11/11/23 11:59 11/11/23 11:44 11/11/23 11:36 11/11/23 11:14 11/11/23 11:10 11/11/23 10:55 11/11/23 09:44 11/11/23 08:00 Room Air 11/11/23 07:12 11/11/23 03:28 Laboratory Results Abnormal lab results 11/10/23 11/10/23 11/11/23 Range/Units 17:48 20:25 06:57 Activ Coag Time Kaolin (94-140) SECONDS Sodium 130 L (136-145) mmol/L Chloride 96 L (98-107) mmol/L BUN/Creatinine Ratio 9.1 L (10-20) Glucose 144 H (70-99(Fasting)) mg/dl POC Glucose 167 H 126 H (70-99) mg/dl 11/11/23 11/11/23 11/11/23 Range/Units 08:00 10:21 10:48 Activ Coag Time Kaolin 223 H 233 H (94-140) SECONDS Sodium (136-145) mmol/L Chloride (98-107) mmol/L BUN/Creatinine Ratio (10-20) Glucose (70-99(Fasting)) mg/dl POC Glucose 140 H (70-99) mg/dl 11/11/23 Range/Units 11:38 Activ Coag Time Kaolin (94-140) SECONDS Sodium (136-145) mmol/L Chloride (98-107) mmol/L BUN/Creatinine Ratio (10-20) Glucose (70-99(Fasting)) mg/dl POC Glucose 188 H (70-99) mg/dl PG Care Time/CCT Total # of Minutes Spent Total Time Spent with Patient: Total time spent is greater than 50% in coordination of care (as documented) at patient's floor/unit and/or counseling patient: Coding Level of Care Code 27338 SUB INP/OBS CARE 2/35MIN Diagnoses New onset of congestive heart failure I50.9 Chronic cholecystitis K81.1 Diabetes mellitus type II, controlled E11.9 Gout M10.9 Asthma, mild persistent J45.30 GERD (gastroesophageal reflux disease) K21.9 Benign prostatic hyperplasia with urinary obstruction N40.1; N13.8 History of CVA (cerebrovascular accident) Z86.73 CKD (chronic kidney disease) N18.9 Hypertension I10 Hyponatremia E87.1
[2023-11-11] MEDS: FUROSEMIDE 40 MG/4 ML VIAL IV SCH (16:40)
--- NOTE | 2023-11-11 16:44 | Electrocardiogram Report ---
Test Reason : Blood Pressure : / mmHG Vent. Rate : 080 BPM Atrial Rate : 080 BPM P-R Int : 230 ms QRS Dur : 106 ms QT Int : 452 ms P-R-T Axes : 043 -48 118 degrees QTc Int : 521 ms Sinus rhythm with 1st degree A-V block Left anterior fascicular block Septal infarct , age undetermined T wave abnormality, consider anterolateral ischemia Prolonged QT Abnormal ECG When compared with ECG of 09-NOV-2023 13:07, Premature atrial complexes are no longer Present T-wave inversion in Anterior leads now present Confirmed by Duran Ross ([id number]) on 11/11/2023 4:44:14 PM Referred By: Miguel Angel Chavarria Confirmed By:Duran Ross
[2023-11-11] MEDS ORDERED: ONDANSETRON INJ 2 MG/ML 2 ML VIAL IV PRN ×2 (20:05→20:06)
[2023-11-12 07:03] LABS: Basophils # (auto) 0.06 K/uL (0.00-0.20); Basophils % (auto) 0.6 %; Eosinophils # (auto) 0.48 K/uL (0.00-0.50); Hematocrit (blood only) 39.2 % (42.0-52.0); Hemoglobin 13.2 g/dl (14.0-18.0); Immature Granulocytes # (auto) 0.05 K/uL (0.01-0.20); Immature Granulocytes % (auto) 0.5 %; Lymphocytes # (auto) 1.24 K/uL (1.20-3.40); Lymphocytes % (auto) 12.9 %; Mean Corpuscular Hemoglobin 29.9 pg (25.0-34.0); Mean Corpuscular Hgb Conc 33.7 g/dL (32.0-36.0); Mean Corpuscular Volume 88.9 fL (80.0-100.0); Mean Platelet Volume 10.2 fL (9.4-12.4); Monocytes # (auto) 1.31 K/uL (0.11-0.59); Monocytes % (auto) 13.7 %; Neutrophils # (auto) 6.44 K/uL (1.40-6.50); Neutrophils % (auto) 67.3 %; Platelet Count 263 K/uL (130-400); RDW Coefficient of Variation 14.8 % (11.5-14.5); RDW Standard Deviation 48.5 fL (36.4-46.3); Red Blood Count 4.41 M/uL (4.70-6.10); White Blood Count 9.58 K/ul (4.8-10.8)
[2023-11-12 07:24] LABS: BUN Creatinine Ratio 9.8 (10-20); Calcium 8.9 mg/dl (8.6-10.3); Creatinine Clr Calc Pharmacy 39.8 ml/min; Est GFR (Non-African American) 51.7 ml/min; Potassium 3.8 mmol/L (3.5-5.1)
[2023-11-12] MEDS: ASPIRIN 81 MG ECTAB PO SCH (07:40)
--- NOTE | 2023-11-12 10:49 | Cardiology Progress Note ---
Date of Service November 12, 2023 Assessment & Plan (1) Status post insertion of drug-eluting stent into left anterior descending (LAD) artery: Plan: Single drug-eluting stent to the LAD. No complications. Tolerating medications. His heart rate and blood pressure are at target. Continue dual antiplatelet therapy with aspirin and Plavix. Strongly encourage participation in cardiac rehab. Continue guideline directed medical therapy for secondary prevention of coronary disease as tolerated. This shall include low-dose aspirin, high intensity statin therapy, and beta-yanet. NE inhibitor/ARB may not be tolerated because of baseline chronic renal insufficiency (although currently GFR around 50 which is typically going to be tolerant of Entresto/NE inhibitor/ARB and SGLT2 inhibitor). (2) Acute on chronic combined systolic (congestive) and diastolic (congestive) heart failure: Plan: By physical exam he still has some pulmonary edema and pleural effusion. However he has been improving on his current diuretic dosing. I recommend we continue until we achieve euvolemia monitoring his renal function carefully. Agree with ambulation in the hallway. If he does not desaturate then we can probably change his Lasix to oral dosing (40 mg p.o. twice daily), supplement potassium as needed, and he would be appropriate for discharge. He will need to be seen in the cardiology office within 1 to 2 weeks. He follows with Dr. Combs. 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 He will continue with metoprolol succinate and we will consider the use of an SGLT2 inhibitor, Entresto/NE/ARB (with the blessing of nephrology), and potentially spironolactone. (3) Cardiomyopathy: Plan: Reduced EF from myocardial ischemia with recent CT and severe LAD stenosis. Hopefully will respond with improved EF post revascularization. He is also got the valvular heart disease causing diastolic heart failure. We will reevaluate EF with limited echo in 2 to 3 months. (4) Moderate to severe aortic stenosis: Plan: This is followed by Dr. Combs. No plan for TAVR at this point. Additional recommendations as an outpatient. (5) Hypertension: Plan: Blood pressure is adequately controlled at this time. Continue current regimen. (Amlodipine 5 mg daily, metoprolol succinate ER 50 mg daily) (6) Atherogenic dyslipidemia: Plan: High risk. High intensity statin therapy recommended. Target LDL reduction is greater than or equal to 50% of untreated baseline LDL. Currently on a atorvastatin 40 mg daily. Admission and Anticipated Discharge Date Admission Date: November 09, 2023 Subjective Patient did well overnight. He states that he is urinating a lot. Denies any chest pain and overall "feel better". He is anxious for discharge. No shortness of breath with limited activity. Plan for ambulation of the hallways. Review of Systems Review of Systems: Negative except as per HPI Physical Exam Constitutional: WD/WN, vitals as above (Elderly, no acute distress) Eyes: Extraocular muscles intact. Sclera are anicteric. ENMT: [place] is pink moist and intact Neck: No JVD Respiratory: Right basilar dullness germania up. Minimal left basilar dullness. Reduced crackles compared to yesterday. Cardiovascular: Regular rate and rhythm. Grade 2 out of 6 systolic murmur. S4 gallop. No edema. Musculoskeletal: no cyanosis or clubbing, extremities motor strength 5/5 (Radial access clean dry intact. Mild ecchymosis. Good distal perfusion.) Neurologic: Cognition is intact. Speech is fluent. Moderately diminished hearing. No focal motor deficits. Psychiatric: A+Ox3, euthymic affect Results & Data Vital Signs (Past 12 Hours) Vital Signs Temp Pulse Pulse Resp BP Pulse Ox O2 Del Method 11/12/23 08:18 36.4 C L 63 17 121/58 L 93 Room Air 11/12/23 07:49 11/12/23 03:34 36.7 C 76 18 127/65 95 Room Air 11/11/23 23:00 62 11/11/23 22:44 36.7 C 67 16 117/64 95 Room Air O2 Del Method 11/12/23 08:18 11/12/23 07:49 Room Air 11/12/23 03:34 11/11/23 23:00 11/11/23 22:44 PG Care Time/CCT Total # of Minutes Spent Total Time Spent with Patient: Total time spent is greater than 50% in coordination of care (as documented) at patient's floor/unit and/or counseling patient: Coding Level of Care Code 23056 SUB INP/OBS CARE 2/35MIN Diagnoses Status post insertion of drug-eluting stent into left anterior descending (LAD) artery Z95.5 Acute on chronic combined systolic (congestive) and diastolic (congestive) heart failure I50.43 Cardiomyopathy I42.9 Moderate to severe aortic stenosis I35.0 Hypertension I10 Atherogenic dyslipidemia E78.5
--- NOTE | 2023-11-12 14:02 | Hospitalist Progress Note ---
Date of Service November 12, 2023 Assessment & Plan (1) New onset of congestive heart failure: Plan: Acute systolic CHF due to ischemic cardiomyopathy Echocardiogram showed EF of 40 to 45% with apical akinesis Cardiac catheterization completed, showed LAD stenosis, stented Responding to IV diuretic therapy. Patient got 40 mg IV Lasix twice daily yesterday. Ordered 40 mg p.o. Lasix twice daily today. Patient is on aspirin, Plavix, beta-yanet, statin Will continue on amlodipine. Entresto or NE/ARB may be considered at a later time (2) Chronic cholecystitis: Plan: CT abdomen pelvis showed distended gallbladder with cholelithiasis. HIDA scan is negative. Discontinue n.p.o. Discontinue Zosyn Right upper quadrant pain has resolved. Pain was most likely related to volume overload, bilateral pleural effusion (3) Diabetes mellitus type II, controlled: Plan: Type II DM Last A1c 6.9% Weight-based basal bolus, SSI while inpatient. Goal BSG [id number]. (4) Gout: Plan: Gout No acute flare, colchicine held (5) Asthma, mild persistent: Plan: Asthma No wheezing on admission. Hypoxia 2/2 acute CHF/pulmonary edema manage as noted May use albuterol as needed if wheezing develops (6) GERD (gastroesophageal reflux disease): Plan: Gerd, hx perforated gastric ulcer - No melena/hematochezia - BUN normal, hgb stable - Continued on PPI/H2 (7) Benign prostatic hyperplasia with urinary obstruction: Plan: BPH with LUTS, urethral stricture Stable, last had cystoscopy 2021 Bladder scan QS (8) History of CVA (cerebrovascular accident): Plan: CVA/TIA 2020 with left upper extremity, left lower extremity weakness no residual deficits. Patient refused MRI at that time. Patient initially on DAPT, subsequently continued on Plavix monotherapy - DAPT avoided due to hx of duodenal ulcer/perf (9) CKD (chronic kidney disease): Plan: No PRAFUL, trend BMP daily renally adjust medications as needed - Cr .95 on admit, GFR >60 - BMP daily (10) Hypertension: Plan: normotensive on admission, diuresis as noted, amlodipine continued May consider switching from amlodipine to losartan at the time of discharge Currently on beta-yanet as well. Blood pressure tolerating (11) Hyponatremia: Plan: With history of SIADH, also with acute CHF and volume overload Urine studies deferred as pt already receiving lasix. Trended Fluid restricted, low-sodium diet Mild hyponatremia at 130 on admission Plan DVT prophylaxis: Heparin drip discontinued today CODE STATUS: DNR/DNI Disposition: PCU for CHF, subacute [place] Likely discharge tomorrow 11/12 Admission and Anticipated Discharge Date Admission Date: November 09, 2023 Subjective Patient feels well. He has been diuresing well with IV Lasix twice daily. Review of Systems Review of Systems: All systems reviewed & are unremarkable except as noted in Subjective Physical Exam Physical Exam: General: Awake, conversant Heart: S1, S2/regular rate and rhythm, no murmur rubs or gallops Lungs: Few bibasilar crackles. Normal effort Abdomen: Soft/nontender/nondistended. No hepatosplenomegaly Extremities: No clubbing/cyanosis. Trace pitting bilateral edema Behavior: Appropriate, cooperative Results & Data Results & Data Vital Signs (Past 12 Hours) Vital Signs Temp Pulse Resp BP Pulse Ox O2 Del Method O2 Del Method 11/12/23 12:18 36.4 C L 70 17 110/53 L 94 Room Air 11/12/23 08:18 36.4 C L 63 17 121/58 L 93 Room Air 11/12/23 07:49 Room Air 11/12/23 03:34 36.7 C 76 18 127/65 95 Room Air PG Care Time/CCT Total # of Minutes Spent Total Time Spent with Patient: Total time spent is greater than 50% in coordination of care (as documented) at patient's floor/unit and/or counseling patient: Coding Level of Care Code 10741 SUB INP/OBS CARE 2/35MIN Diagnoses New onset of congestive heart failure I50.9 Chronic cholecystitis K81.1 Diabetes mellitus type II, controlled E11.9 Gout M10.9 Asthma, mild persistent J45.30 GERD (gastroesophageal reflux disease) K21.9 Benign prostatic hyperplasia with urinary obstruction N40.1; N13.8 History of CVA (cerebrovascular accident) Z86.73 CKD (chronic kidney disease) N18.9 Hypertension I10 Hyponatremia E87.1
[2023-11-12] MEDS ORDERED: MoRPHine SULFATE 2 MG/ML CARP IV PRN (14:43)
[2023-11-12] MEDS: ONDANSETRON INJ 2 MG/ML 2 ML VIAL IV PRN (14:54)
--- NOTE | 2023-11-12 14:58 | Surgery Consultation ---
Date of Consultation November 12, 2023 Assessment & Plan (1) Abdominal pain: This is an 88y M with a PMH of CAD, carotid stenosis, CHF, HTN, Aortic Stenosis, depression/anxiety, CHF, TIA, cardiomyopathy who presented to the [facility] ED on 11/09/23 with chest pain and tightness and changes seen on outpatient EKG. He unde rwent a CT a/p that showed cardiomegaly with pulmonary edema, moderate pleural effusions and dependent bibasilar consolidation, no bowel obstruction or bowel wall thickening, and a distended gallbladder with cholelithiasis. A CT chest that revealed evidence of congestive failure, bilateral airspace opacities likely represent pulmonary edema with moderate pleural effusions. A HIDA scan was also obtained for further evaluation of gallbladder etiology which was negative for acute tirso. Patient has had cardiac workup and recommended he undergo catheterization which was performed on 11/10 and a drug eluding stent was placed in the LAD. He is currently on plavix and aspirin. We have been consulted today given recent nausea/vomiting and abdominal pain. Today WBC 9, hbg 13.2. LFT on admission showed tb 1.1, otherwise unremarkable. Today patient appears well, reports some nausea/vomiting today after lunch. On exam abdomen is soft with mild discomfort to palpation in the mid/lower abdomen. No RUQ ttp reported. He denies passing much flatus. From our standpoint patient is not suffering from or have evidence of acute cholecystitis. Especially in the setting of recent cardiac events including cardiac cath with drug eluding stent placement on dual antiplatelet therapy he is not an ideal surgical candidate. HIDA was negative 3 days ago. ?maybe has ileus. Would consider a bowel regimen and may advance diet as tolerates from our end as symptoms improve. We will sign off, but call back if any questions/concerns. (2) Cardiomyopathy: (3) Status post insertion of drug-eluting stent into left anterior descending (LAD) artery: Supervising Physician Co-Signing Physician Notes I personally saw and evaluated the patient with Karine Arauz PA-C and agree with the assessment and plan 88 yo male PPD#1 cardiac cath and stent placement, cholelithiasis HIDA and CT images and results were personally viewed and interpreted by myself He has no signs of cholecystitis on either study Yesterday he had a cardiac stent placed and is not a surgical candidate Surgery will sign off at this time History of Present Illness Attending Physician: Judi Elise MD History of Present Illness This is an 88y M with a PMH of CAD, carotid stenosis, CHF, HTN, Aortic Stenosis, depression/anxiety, CHF, TIA, cardiomyopathy who presented to the [facility] ED on 11/09/23 with chest pain and tightness and changes seen on EKG. He underwent a CT a/p that showed cardiomegaly with pulmonary edema, moderate pleural effusions and dependent bibasilar consolidation, no bowel obstruction or bowel wall thickening, and a distended gallbladder with cholelithiasis and a CT chest that revealed evidence of congestive failure, bilateral airspace opacities likely represent pulmonary edema with moderate pleural effusions. A HIDA scan was also obtained for further evaluation of gallbladder etiology which was negative for acute tirso. Patient has had cardiac workup and recommended he undergo catheterization which was performed on 11/10 and a drug eluding stent was placed in the LAD. He states he has had some nausea today along with emesis with lack of flatus. He felt more bloated than usual today along with some lower abdominal discomfort. He was previously tolerating a diet it seems. Allergies Allergy/AdvReac Type Severity Reaction Status Date / Time Sulfa (Sulfonamide Allergy Severe EDEMA Verified 11/09/23 10:48 Antibiotics) aspirin AdvReac Intermediate abdominal Verified 11/09/23 10:48 pain;Visual Disturbance escitalopram [From Lexapro] AdvReac Intermediate Confusion Verified 11/09/23 10:48 metformin AdvReac Intermediate Abdominal Verified 11/09/23 11:14 Pain Home Medications Medication Instructions Recorded Confirmed Type cholecalciferol (vitamin D3) 125 125 mcg PO QAM 12/16/19 11/09/23 History mcg (5,000 unit) tablet (Vitamin D3) nitroglycerin 0.4 mg sublingual 0.4 mg sublingual Q5M PRN chest 05/25/21 11/09/23 History tablet (Nitrostat) pain colchicine 0.6 mg tablet (Colcrys) 0.6 mg PO DAILY PRN gout #90 tabs 05/20/22 11/09/23 Rx amlodipine 5 mg tablet (Norvasc) 5 mg PO QAM #90 tabs 01/25/23 11/09/23 Rx clopidogrel 75 mg tablet 75 mg PO QAM #90 tabs 05/19/23 11/09/23 Rx atorvastatin 40 mg tablet 40 mg PO QPM #90 tabs 06/28/23 11/09/23 Rx metronidazole 0.75 % topical gel 1 applic topical BID PRN rosacea 06/28/23 11/09/23 Rx (Rosadan) #45 grams metoprolol succinate 50 mg 50 mg PO DAILY #90 tabs 07/26/23 11/09/23 Rx tablet,extended release 24 hr (Toprol XL) finasteride 5 mg tablet (Proscar) 5 mg PO QAM #90 tabs 07/28/23 11/09/23 Rx alfuzosin 10 mg tablet,extended 10 mg PO .qhs #30 tabs 08/27/23 11/09/23 Rx release 24 hr albuterol sulfate 90 mcg/actuation 2 puff inhalation Q6H PRN 09/13/23 11/09/23 History aerosol inhaler Shortness Of Breath Or Wheezing diclofenac sodium 1 % topical gel See Rx Instructions .Route 10/13/23 11/09/23 Rx .COMPLEX #300 grams calcium carbonate 600 mg-vitamin 2 cap PO DAILY #60 caps 11/09/23 11/09/23 Rx D3 10 mcg (400 unit) capsule clotrimazole-betamethasone 1 1 applic topical DIRECTED PRN .. 11/09/23 11/09/23 History %-0.05 % topical cream docusate sodium 100 mg capsule 100 mg PO BID PRN constipation #60 11/09/23 11/09/23 Rx caps famotidine 20 mg tablet 20 mg PO BID #60 tabs 11/09/23 11/09/23 Rx furosemide 20 mg tablet 20 mg PO DAILY #30 tabs 11/09/23 11/09/23 Rx prednisone 10 mg tablet 40 mg (4 x 10 mg) PO DAILY #20 tabs 11/09/23 11/09/23 Rx aspirin 81 mg tablet,delayed 81 mg PO QAM 1 month #30 tabs 11/12/23 Rx release Patient History Medical History Acute left-sided weakness CAD (coronary artery disease) Gout Benign prostatic hyperplasia with urinary obstruction Cervical disc disease Depression with anxiety Generalized osteoarthritis Hypertension Aortic stenosis Asthma, mild persistent Carpal tunnel syndrome of right wrist Cervical radiculopathy Diabetes mellitus type II, controlled Lumbar radiculopathy Polyneuropathy H/O Doppler echocardiogram Surgical History S/P partial gastrectomy Family History Mother , age 66 with diabetes Diabetes Sister Diabetes Parkinson disease Father , age 85 Heart disease Brother Heart disease Denies family history of Ovarian cancer Prostate cancer Coronary heart disease Myocardial infarction Breast cancer Colorectal cancer Social History Smoking Status: Never smoker Age Started Using Tobacco: 17; Age Quit Using Tobacco: 29; packs per day: 0.5; Cigarettes Per Day: 1 PPD; Second Hand Exposure: No; Do You Dip or Chew Tobacco: No; Hx Alcohol Use: No Hx Substance Use: No Preferred Language: Belgian Communication Ability: Effective Visual Impairment: No Limitations Hearing Ability: Use of Hearing Aid Manager Wound Required: No Beliefs That Will Affect Care: None marital status: / Current Living Situation: Alone Current Living Situation Comment: home alone current occupational status: retired 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 Feels Safe at Home: Yes Childhood Exposure to Second-Hand Smoke: No Diet: regular caffeine: Yes during the past year weight has: remained stable Dental Care, Regularly: No Physical Activity Frequency: Does not Exercise Seatbelt Use: always Sunscreen Use: No Assistive Devices: Cane, Denture - Upper, Denture - Lower, Hearing Aid - Bilateral and Walker Review of Systems Constitutional: no fever and no chills Respiratory: no dyspnea Cardiovascular: no chest pain Gastrointestinal: + abdominal pain (lower abdominal), + na usea, + vomiting and + constipation Physical Exam Physical Exam: awake, no distress Respiratory: normal respiratory effort Gastrointestinal (Abdomen): Inspection/Auscultation: + abdominal surgical scar (midline, well healed); abdomen not distended Percussion/Palpation: + abdomen tender (mild discomfort in mid lower abdomen, no RUQ ttp) and abdomen soft Results & Data Vital Signs (Past 12 Hours) Vital Signs Temp Pulse Resp BP Pulse Ox O2 Del Method O2 Del Method 11/12/23 14:29 Room Air 03/08/24 12:18 97.5 F L 70 17 110/53 L 94 Room Air 11/12/23 08:18 97.5 F L 63 17 121/58 L 93 Room Air 11/12/23 07:49 Room Air 11/12/23 03:34 98.1 F 76 18 127/65 95 Room Air Diagnostic Findings ABDOMEN AND PELVIS CT WITH IV CONTRAST HISTORY: Acute shortness of breath with cough chest tighness, sob/cough, abd pain TECHNIQUE: Multiaxial CT images of the abdomen and pelvis were performed following the IV administration of 112 cc of Optiray, A dose lowering technique was utilized adhering to the principles of ALARA. COMPARISON STUDY: CT chest of same day, CT abdomen and pelvis 12/16/2019 FINDINGS: Cardiomegaly with extensive coronary artery calcifications. Moderate pleural effusions with dependent bibasilar consolidation. Pulmonary edema. No free air. Spleen, moderately atrophic pancreas and adrenal glands. Distended gallbladder with cholelithiasis. Unremarkable liver. Patency of the hepatic and portal veins. No hydronephrosis. There are a few subcentimeter scattered hypodensities of the kidneys, too small to characterize. Decompressed bladder with wall thickening. Prostatomegaly. Atherosclerosis of the aorta without aneurysm. No lymphadenopathy. Distal esophageal wall thickening with esophageal air-fluid level. Postop changes of the stomach. No bowel obstruction or bowel wall thickening. Normal appendix. Postoperative changes of anterior abdominal wall. Gynecomastia. Body wall edema. No acute fracture. Degenerative changes of the spine, pelvis and hips. IMPRESSION: 1. Cardiomegaly with pulmonary edema, moderate pleural effusions and dependent bibasilar consolidation. 2. No bowel obstruction or bowel wall thickening. 3. Distended gallbladder with cholelithiasis. 4. Additional findings as above. ACT 112: Negative or not required by law. The above report was generated using voice recognition software. It may contain grammatical, syntax or spelling errors. Electronically signed by: Parker Chen M.D. 11/09/2023 3:10 PM T ANGIOGRAM OF THE CHEST CLINICAL HISTORY: Atypical chest pain. Cough and dyspnea. COMPARISON STUDY: Chest CT dated 12/16/2019. Chest x-ray dated 11/09/2023. TECHNIQUE: Following the IV administration of 112 cc of Optiray 320, CT angiogram of the chest was performed from the upper abdomen to the thoracic inlet utilizing the pulmonary embolus protocol. Images are reviewed in the axial, sagittal, and coronal planes. 3-D MIPS images are created and assessed. IV contrast was administered without complication. A dose lowering technique was utilized adhering to the principles of ALARA. CT DOSE: 1751.13 mGy.cm FINDINGS: Thyroid: Imaged portions of the thyroid gland are normal in size and attenuation. Thoracic aorta: There is mild atherosclerotic calcification of the thoracic aorta, which is normal in caliber and demonstrates standard 3-vessel arch anatomy. The thoracic aorta is not well opacified.. Pulmonary vasculature: The main pulmonary arteries are dilated suggesting pulmonary artery hypertension. There are no filling defects identified in main, lobar, or segmental pulmonary branches to suggest pulmonary embolus. Evaluation of the distal segmental and subsegmental branches is degraded by motion artifact. Heart: The heart is enlarged and without pericardial effusion. The coronary arteries and mitral annulus are densely calcified. Lungs and pleural spaces: Evaluation of the lung parenchyma is degraded by motion artifact. There is diffuse interlobular septal thickening consistent with fluid overload/congestive change. Mild bilateral airspace opacities likely represent pulmonary edema. Diffuse bronchial thickening is noted. There are moderate pleural effusions with dependent atelectasis. Minimal secretions are noted in the trachea. Mediastinum: Subcentimeter mediastinal nodes are not pathologically enlarged by size criteria. Carrie: Prominent hilar lymph nodes measure up to 12 mm in short axis. These may be reactive. Axillae: There is no axillary lymphadenopathy. Upper abdomen: There is a small hiatal hernia. Partially visualized upper abdominal viscera is otherwise grossly unremarkable. Skeletal structures: The skeletal structures are osteopenic. No lytic or blastic bony lesions are seen. Degenerative change is noted in the shoulders and spine. IMPRESSION: 1. There is no evidence of pulmonary embolus in the main, lobar, or segmental pulmonary arteries. 2. Cardiomegaly with evidence of congestive failure. 3. Bilateral airspace opacities likely represent pulmonary edema. Correlate clinically for evidence of a superimposed infectious/inflammatory pneumonitis. Radiographic follow-up resolution is recommended. 4. Moderate pleural effusions with dependent atelectasis. 5. Additional findings as above. ACT 112: Negative or not required by law Electronically signed by: Rasheed Patel M.D. 11/09/2023 2:24 PM NUCLEAR HEPATOBILIARY SCAN WITH EJECTION FRACTION IMAGING CLINICAL HISTORY: Right upper quadrant abdominal pain. COMPARISON STUDY: Abdominal CT dated 11/09/2023. TECHNIQUE: Dynamic images of the liver and anterior abdomen were obtained every 5 minutes for a total of 60 minutes following the IV administration of 5.2 mCi of technetium 99m Mebrofenin. 1.7 mcg of sincalide was then injected with additional images acquired 1 minute and 45 metastases post sincalide injection to calculate the gallbladder ejection fraction. FINDINGS: The hepatobiliary scan shows prompt and homogeneous hepatic uptake. T here is visualized activity within the intra and extrahepatic biliary tree at 10 minutes, and within the gallbladder at 30 minutes. There is normal biliary to bowel transit, with small bowel visualized by 15 minutes. On the sincalide imaging, the gallbladder ejection fraction was measured at 35%. IMPRESSION: 1. Unremarkable nuclear hepatobiliary scan. There is no scintigraphic evidence of cholecystitis. 2. The gallbladder ejection fraction measured 35% which is low normal. ACT 112: Negative or not required by law. Electronically signed by: Rasheed Patel M.D. 11/10/2023 12:31 PM Dictated: 11/10/23 1226 PG Care Time/CCT Total # of Minutes Spent Total Time Spent with Patient: Total time spent is greater than 50% in coordination of care (as documented) at patient's floor/unit and/or counseling patient: Coding Level of Care Code 92568 INT INP/OBS CARE 2/55MIN Diagnoses Abdominal pain R10.9 Cardiomyopathy I42.9 Status post insertion of drug-eluting stent into left anterior descending (LAD) artery Z95.5
[2023-11-12] MEDS: POLYETHYLENE (MIRALAX) 17 GM PACK PO SCH (16:48)
[2023-11-12] MEDS: FUROSEMIDE 40 MG TAB PO SCH (16:49)
[2023-11-13 06:28] LABS: BUN Creatinine Ratio 10.6 (10-20); Calcium 8.9 mg/dl (8.6-10.3); Creatinine Clr Calc Pharmacy 43.5 ml/min; Est GFR (African American) 66.4 ml/min; Est GFR (Non-African American) 57.3 ml/min; Potassium 3.6 mmol/L (3.5-5.1)
[2023-11-13] MEDS ORDERED: POLYETHYLENE (MIRALAX) 17 GM PACK PO PRN (07:25)
[2023-11-13] MEDS: DOCUSATE SODIUM 100 MG CAP PO SCH (08:03)
--- NOTE | 2023-11-13 09:44 | Discharge Summary ---
Date of Service November 13, 2023 Admission HPI Per Admitting Provider Arian is a 88-year-old male with a past medical history of CAD, BPH with LUTS, asthma, aortic stenosis, DM 2, and partial gastrectomy who presented to the emergency department on PCP referral for intermittent chest discomfort, dyspnea, and concern for ischemic changes on outpatient EKG. Patient received full dose aspirin en route to the ER. Arian reports that he went to the doctors for concern of right upper quadrant abdominal pain, but was referred for concerns about his heart. Abdominal pain intermittent, 20 minute episodes since COVID around August. No association with meals. No hematochezia, melena, or otilio colored stools. Reports in the last week he had bilateral lower rib pain and tenderness in his upper abdomen, although this is much worse on the right than the left. Denies nausea and vomiting and thinks his appetite has been diminished for around 6 weeks but overall "okay ". Denies chest pain, chest pressure. Endorses orthopnea which started ~6 weeks ago, same time as bilateral low rib pain Bilateral ankle swelling for a 1 week. Denies fever, chills, sweats. No dysuria. No urinary change/symptoms At bedside assessment he reports he feels better. Notes his right abdominal pain seems to come in spasms of about 20 minutes or so and has not really changed in duration inthe last few weeks, currently he feels that his pain is okay and he is in no pain at rest currently, although continues to endorse tenderness with deep right upper quadrant palpation. Medical History: Reviewed Medications: Reviewed Surgical History: Reviewed Family history: Reviewed Allergies: Reviewed Social History: No tobacco use, no etoh use. Code Status: DNR/DNI Admission Exam Per Admitting Provider General: A&Ox3. NAD. Cooperative. HEENT: Atraumatic, normocephalic. PERLAA. EOM intact. Pulm: CTAB A&P. -wheezes, -rales, -rhonchi. Symmetrical chest rise. No increased work of breathing. No respiratory distress. Cardiac: RRR, +sm. Radial pulses intact and symmetrical. +JVD Abdominal: RUQ TTP without rebound/guarding/rigidity. Nondistended, soft. BS present. Ext: Warm, dry, moves extremities equally. 1+ ankle edema bilat Principal Diagnosis Acute systolic congestive heart failure due to ischemic cardiomyopathy Coronary artery disease status post LAD stent Hyponatremia Discharge Exam General: Awake, conversant Heart: S1, S2/regular rate and rhythm, no murmur rubs or gallops Lungs: Few bibasilar crackles. Normal effort Abdomen: Soft/nontender/nondistended. No hepatosplenomegaly Extremities: No clubbing/cyanosis. No edema Behavior: Appropriate, cooperative Discharge Data Allergies Allergy/AdvReac Type Severity Reaction Status Date / Time Sulfa (Sulfonamide Allergy Severe EDEMA Verified 11/09/23 10:48 Antibiotics) aspirin AdvReac Intermediate abdominal Verified 11/09/23 10:48 pain;Visual Disturbance escitalopram [From Lexapro] AdvReac Intermediate Confusion Verified 11/09/23 10 :48 metformin AdvReac Intermediate Abdominal Verified 11/09/23 11:14 Pain Consultations 11/09/23 14:54 ED Decision to Admit Stat 11/09/23 15:56 Consult Cardiology Routine 11/11/23 11:16 Consult Cardiac Rehabilitation Routine 11/12/23 14:40 Consult General Surgery Routine 11/13/23 09:43 [facility] CHF Program Referral Routine Procedures Performed Operation Date: 11/11/23 09:30 Actual Procedures p Cineradiography w/Routine Exam - Joesph Jacome MD, PhD p Cath, Coronaries ONLY (no LV) - Joesph Jacome MD, PhD s Drug Eluting Stent SGl Vessel - Joesph Jacome MD, PhD Ordered Studies 11/09/23 13:14 CT abd pelvis IV con only Stat CT angio chest PE protocol Stat 11/11/23 07:54 CL Cath Imgs for PACS use only Stat Hospital Course (1) New onset of congestive heart failure: Acute systolic CHF due to ischemic cardiomyopathy Echocardiogram showed EF of 40 to 45% with apical akinesis Cardiac catheterization completed, showed LAD stenosis, stented Responded to IV Lasix Currently on 40 mg p.o. Lasix twice daily dosing. Tolerating it well. Patient is on aspirin, Plavix, beta-yanet, statin Will continue on amlodipine. Entresto or NE/ARB, spironolactone may be considered at a later time (2) Chronic cholecystitis: CT abdomen pelvis showed distended gallbladder with cholelithiasis. HIDA scan is negative. Right upper quadrant pain has resolved. Pain was most likely related to volume overload, bilateral pleural effusion During the hospital stay, the patient did have some issues with nausea and vomiting. This has been an ongoing issue for the last 6 months per patient. Surgery evaluation was completed who did not think that the nausea and vomiting were related to gallbladder issues. This will need to be addressed outpatient as this has been going on for 6 months. Currently the patient is pain-free. No nausea or vomiting today. (3) Diabetes mellitus type II, controlled: Type II DM Last A1c 6.9% Weight-based basal bolus, SSI while inpatient. Goal BSG [id number]. (4) Gout: Gout No acute flare, colchicine held (5) Asthma, mild persistent: Asthma No wheezing on admission. Hypoxia 2/2 acute CHF/pulmonary edema manage as noted May use albuterol as needed if wheezing develops (6) GERD (gastroesophageal reflux disease): Gerd, hx perforated gastric ulcer - No melena/hematochezia - BUN normal, hgb stable - Continued on PPI/H2 (7) Benign prostatic hyperplasia with urinary obstruction: BPH with LUTS, urethral stricture Stable, last had cystoscopy 2021 (8) History of CVA (cerebrovascular accident): CVA/TIA 2020 with left upper extremity, left lower extremity weakness no residual deficits. Patient refused MRI at that time. Patient initially on DAPT, subsequently continued on Plavix monotherapy - DAPT avoided due to hx of duodenal ulcer/perf (9) CKD (chronic kidney disease): No PRAFUL, trend BMP daily renally adjust medications as needed - Cr .95 on admit, GFR >60 (10) Hypertension: normotensive on admission, diuresis as noted, amlodipine continued May consider switching from amlodipine to losartan at a later time Currently on beta-yanet as well. Blood pressure tolerating (11) Hyponatremia: With history of SIADH, also with acute CHF and volume overload Urine studies deferred as pt already receiving lasix. Trended Fluid restricted, low-sodium diet Mild hyponatremia at 130 on admission Plan Discharge today Total Time Total Time Spent Total Time Spent (In Minutes): 35 Discharge Plan Discharge Items Patient Disposition: Home - Self-Care Reason For Visit: CHF Discharge Diagnosis: Acute systolic congestive heart failure due to ischemic cardiomyopathy Coronary artery disease status post LAD stent Hyponatremia Activity: Resume your previous activity Non-emergency contact: Primary Care Provider Call non-emergency contact if: you have any medication questions and your symptoms worsen Follow-up/Referrals: Bolivar Chavarria MD [Primary Care Provider] - 11/17/23 2:00 pm (With Any CHEN) Jose Luis Combs MD [Physician] - 11/17/23 11:15 am Diet: Heart Healthy and Low Sodium (2gm) Addtl Attending Provider Instructions: Advised to follow-up with PCP in 1 week Advised to follow-up with cardiology in 1 week Advised to note that you have a weak heart for which you need to be closely m onitored by cardiology Pending Studies at Discharge: No Stand-Alone Forms: My [facility] Medications and DC Order Prescriptions: New aspirin 81 mg Tablet,Delayed Release (Dr/Ec) 81 mg PO QAM 30 Days Qty: 30 0RF furosemide 40 mg Tablet 40 mg PO BID17 30 Days Qty: 30 0RF potassium chloride 20 mEq Tablet,Er Particles/Crystals 20 meq PO QAM 30 Days Qty: 30 0RF Continued colchicine [Colcrys] 0.6 mg tablet 0.6 mg PO DAILY PRN (Reason: gout) Qty: 90 3RF Rx Instructions: BRAND NECESSARY amlodipine [Norvasc] 5 mg tablet 5 mg PO QAM Qty: 90 3RF clopidogrel 75 mg tablet 75 mg PO QAM Qty: 90 3RF metronidazole [Rosadan] 0.75 % gel 1 applic topical BID PRN (Reason: rosacea) Qty: 45 3RF atorvastatin 40 mg tablet 40 mg PO QPM Qty: 90 3RF metoprolol succinate [Toprol XL] 50 mg tablet extended release 24 hr 50 mg PO DAILY Qty: 90 3RF finasteride [Proscar] 5 mg tablet 5 mg PO QAM Qty: 90 3RF diclofenac sodium 1 % gel See Rx Instructions .ROUTE .COMPLEX Qty: 300 3RF Dose Instruction: APPLY 4GM 4X DAILY NEEDED FOR KNEE PAIN APPLY TO EACH KNEE PRN FOR ARTHRITIS PAINS Rx Instructions: APPLY 4GM 4X DAILY NEEDED FOR KNEE PAIN APPLY TO EACH KNEE PRN FOR ARTHRITIS PAINS calcium carbonate-vitamin D3 600 mg-10 mcg (400 unit) capsule 2 cap PO DAILY Qty: 60 0RF famotidine 20 mg tablet 20 mg PO BID Qty: 60 2RF docusate sodium 100 mg capsule 100 mg PO BID PRN (Reason: constipation) Qty: 60 0RF alfuzosin 10 mg tablet extended release 24 hr 10 mg PO .qhs Qty: 30 11RF Hold Instructions: Patient is not taking this medicine Rx Instructions: administer after the same meal each day albuterol sulfate 90 mcg/actuation HFA aerosol inhaler 2 puff inhalation Q6H PRN (Reason: Shortness Of Breath Or Wheezing) cholecalciferol (vitamin D3) [Vitamin D3] 125 mcg (5,000 unit) Tablet 125 mcg PO QAM nitroglycerin [Nitrostat] 0.4 mg tablet, sublingual 0.4 mg sublingual Q5M PRN (Reason: chest pain) Rx Instructions: do not exceed 3 doses per episode clotrimazole-betamethasone 1-0.05 % cream 1 applic topical DIRECTED PRN (Reason: ..) Rx Instructions: Apply small/pea-sized amount topically before bed Discontinued furosemide 20 mg tablet 20 mg PO DAILY Qty: 30 2RF prednisone 10 mg tablet 40 mg PO DAILY Qty: 20 0RF Discharge Orders: Discharge Order- CHF (Routine); Ordered 11/13/23 Ordered By: Judi Elise Admission Data Admit Date/Time: 11/09/23 15:43 Attending Provider: Judi Elise Admit Provider: Roly Bangura Primary Care Provider: Bolivar Chavarria Other Providers: Roly Bangura; Duran Ross; Star Preciado; Swetha Claros Coding Level of Care Code 05110 INP/OBS DISCH >30 MIN Diagnoses New onset of congestive heart failure I50.9 Chronic cholecystitis K81.1 Diabetes mellitus type II, controlled E11.9 Gout M10.9 Asthma, mild persistent J45.30 GERD (gastroesophageal reflux disease) K21.9 Benign prostatic hyperplasia with urinary obstruction N40.1; N13.8 History of CVA (cerebrovascular accident) Z86.73 CKD (chronic kidney disease) N18.9 Hypertension I10 Hyponatremia E87.1
== END 2023-11-13 11:15 | disposition home or self-care (01) | DRG 321 ==
LOC: ED 12:49 → EDINP 15:43 → SUATTDRO 15:43 → 2S 18:10
PROC: CLB.CCO (2023-11-11 09:30)